=== PATIENT | female | born 1965 | race Asian ===

== ENCOUNTER 2020-02-11 13:55 | Outpatient (CLI) | payer OTHER, SELFPAY ==
--- NOTE | ~2020-02-11 | MR_ITS ---
EXAMINATION: MR knee LT wo con DATE: 02/11/2020 15:13 INDICATION: Acute left knee pain. TECHNIQUE: Magnetic resonance imaging (MRI) of the left knee was performed without intravenous contra st. Sequences included axial PD-weighted FS FSE, coronal PD-weighted FSE and PD-weighted FS FSE, sagi ttal PD-weighted FSE, and sagittal T2-weighted FS FSE. COMPARISON: None. FINDINGS: Medial compartment: Medial meniscus is normal. There is partial-thickness cartilage loss of tibial condyle laterally. Fem oral cartilage is normal. Lateral compartment: There is a complex tear involving body and anterior horn of lateral meniscus. There is a torn bucket handle component superior to the body segment. There is cartilage surface irregularity of femoral con dyle and tibial condyle. Patellofemoral compartment: There is cartilage surface irregularity of patellar medial and lateral facets. There is cartilage jennifer face irregularity of medial trochlea. Ligaments and tendons: The anterior cruciate ligament is normal. There is a complete tear of posterior cruciate ligament. Th ere are changes of prior sprains of medial collateral ligament and fibular collateral ligament charac terized by thickening and increased signal intensity proximally. There is mild patellar tendinopathy. Fluid: There is a moderate-sized knee joint effusion. There is a small Meneses's cyst. IMPRESSION: 1. Mild tricompartmental chondrosis. 2. Complex tear of lateral meniscus. 3. Complete tear of posterior cruciate ligament. 4. Moderate-sized knee joint effusion. 5. Small Meneses's cyst. Reviewed, dictated and finalized at location A.
== END 2020-02-11 13:56 | disposition home or self-care (01) ==
PROVIDERS: PCP Internal Medicine
DX: M25.562 Pain in left knee (principal); M22.2X2 Patellofemoral disorders, left knee; S83.272A Complex tear of lateral meniscus, current injury, left knee, initial encounter; S83.522A Sprain of posterior cruciate ligament of left knee, initial encounter; M25.462 Effusion, left knee; M71.22 Synovial cyst of popliteal space [Baker], left knee
CPT/HCPCS: 73721

== ENCOUNTER 2020-09-15 15:14 | Outpatient (CLI) | payer OTHER, SELFPAY ==
[2020-09-15 15:41] LABS: Basophils Percent Auto 0.7 % (0.2-1.2); Eosinophils Percent Auto 0.9 % (0-4.4); Hematocrit 39.2 % (37.0-47.0); Hemoglobin 13.3 g/dL (12.0-15.0); Lymphocytes Absolute Auto 1.21 K/mm3 (0.9-3.2); Lymphocytes Percent Auto 28.4 % (18.3-44.2); Mean Corpuscular HGB Conc 33.9 g/dl (32-36); Mean Corpuscular Hemoglobin 31.8 pg (26-34); Mean Corpuscular Volume 93.8 fl (80-100); Mean Platelet Volume 12.1 fl (7.4-10.4); Monocytes Absolute Auto 0.4 K/mm3 (0.1-0.6); Monocytes Percent Auto 10.1 % (2.6-8.5); Neutrophils Absolute Auto 2.6 K/mm3 (1.3-6.7); Neutrophils Percent Auto 59.9 % (45.5-73.1); Platelet Count Result 199 k/mm3 (150-375); Red Blood Count 4.18 M/mm3 (4.2-5.4); Red Cell Distribution Width 13.1 % (11.5-14.5); White Blood Count 4.3 K/mm3 (4.5-10.0)
[2020-09-15 15:45] LABS: Add Urine Microscopic? YES; Appearance Urine Clear (Clear); Bilirubin Urine Negative (Negative); Blood Urine 1+ (Negative); Color Urine Colorless (Yellow); Glucose Urine UA Negative (Negative); Ketones Urine Negative (Negative); Leukocyte Esterase Ur Negative LEU/UL (NEGATIVE); Nitrate Urine Negative (Negative); Protein Urine Negative (Negative); RBC Urine 0-2 /hpf (0-2); Specific Grav Ur 1.006 (1.001-1.035); Squamous Epithelial Cell Urine Rare /hpf (Few); Urobilinogen Urine Negative mg/dL (<2.0); WBC Urine 0-3 /hpf (0-3)
[2020-09-15 15:56] LABS: Alanine Aminotransferase 15 U/L (4-35); Albumin Level 3.9 g/dL (3.5-5.1); Alkaline Phosphatase 56 U/L (38-126); Anion Gap 6 mmol/L (8-16); Aspartate Amino Transferase 25 U/L (14-36); Bilirubin,Total 0.4 mg/dL (0.2-1.3); Blood Urea Nitrogen 15 mg/dL (7-17); Calcium 8.8 mg/dL (8.4-10.2); Carbon Dioxide 26 mmol/L (22-30); Chloride 106 mmol/L (98-107); Cholesterol 200 mg/dL (0-200); Estimated Glomerular Filt Rate > 60; Glucose 100 mg/dL (65-105); HDL Direct 102 mg/dL; Potassium 4.3 mmol/L (3.4-5.0); Sodium 138 mmol/L (137-145); Triglycerides 121 mg/dL (<150)
[2020-09-15 16:07] LABS: LDL Cholesterol Direct 77 mg/dL
[2020-09-15 16:48] LABS: Vitamin D 25 Hydroxy 52.1 ng/mL
== END 2020-09-15 15:15 | disposition home or self-care (01) ==
PROVIDERS: PCP Internal Medicine; Visit Provider Internal Medicine
DX: E55.9 Vitamin D deficiency, unspecified (principal); F32.1 Major depressive disorder, single episode, moderate; H35.30 Unspecified macular degeneration; R31.9 Hematuria, unspecified; Z79.899 Other long term (current) drug therapy; E78.2 Mixed hyperlipidemia
CPT/HCPCS: 36415; 80053; 80061; 81001; 82306; 84443; 85025

== ENCOUNTER 2020-09-22 09:30 | Outpatient (CLI) | payer OTHER, SELFPAY ==
[2020-09-22 11:27] LABS: Folic Acid > 20.0 ng/mL (2.76->20)
== END 2020-09-22 09:31 | disposition home or self-care (01) ==
PROVIDERS: PCP Internal Medicine; Visit Provider Internal Medicine
DX: G62.9 Polyneuropathy, unspecified (principal)
CPT/HCPCS: 36415; 82607; 82746

== ENCOUNTER 2020-12-25 09:43 | Outpatient (CLI) | payer OTHER, SELFPAY ==
[2020-12-25 09:59] LABS: Basophils Percent Auto 0.6 % (0.2-1.2); Eosinophils Absolute Auto 0.1 K/mm3 (0-0.3); Eosinophils Percent Auto 1.9 % (0-4.4); Hematocrit 44.9 % (37.0-47.0); Hemoglobin 15.1 g/dL (12.0-15.0); Immature Granulocyte Absolute 0.01 K/mm3 (0.00-0.031); Immature Granulocyte Percent A 0.2 % (0-0.5); Lymphocytes Absolute Auto 1.84 K/mm3 (0.9-3.2); Lymphocytes Percent Auto 34.1 % (18.3-44.2); Mean Corpuscular HGB Conc 33.6 g/dl (32-36); Mean Corpuscular Hemoglobin 31.9 pg (26-34); Mean Corpuscular Volume 94.9 fl (80-100); Mean Platelet Volume 11.7 fl (7.4-10.4); Monocytes Absolute Auto 0.6 K/mm3 (0.1-0.6); Monocytes Percent Auto 11.5 % (2.6-8.5); Neutrophils Absolute Auto 2.8 K/mm3 (1.3-6.7); Neutrophils Percent Auto 51.7 % (45.5-73.1); Platelet Count Result 189 k/mm3 (150-375); Red Blood Count 4.73 M/mm3 (4.2-5.4); Red Cell Distribution Width 11.9 % (11.5-14.5); White Blood Count 5.4 K/mm3 (4.5-10.0)
[2020-12-25 10:55] LABS: Iron 144 ug/dL (37-170)
[2020-12-25 11:18] LABS: Percent Iron Saturation 50 % (20-50)
== END 2020-12-25 09:44 | disposition home or self-care (01) ==
PROVIDERS: PCP Internal Medicine; Visit Provider Internal Medicine
DX: G62.9 Polyneuropathy, unspecified (principal); G25.81 Restless legs syndrome
CPT/HCPCS: 36415; 82728; 83540; 83550; 83735; 85025

== ENCOUNTER 2021-03-30 09:44 | Outpatient (CLI) | payer OTHER, SELFPAY ==
--- NOTE | ~2021-03-30 | XR_ITS ---
XR hip BI 2V w AP pelvis DATE: 03/30/2021 10:16 INDICATION: Pelvic and hip pain TECHNIQUE: AP pelvis. AP and lateral views of each hip. COMPARISON: None FINDINGS: No pelvic fracture or bone destruction. The pubic symphysis and sacroiliac joints are intac t. Hip joint spaces are symmetric and well preserved. No fracture or dislocation, avascular necrosis or bone destruction of either hip. IMPRESSION: No significant abnormality Reviewed, dictated and finalized at location B. IMPRESSION: No significant abnormality
--- NOTE | ~2021-03-30 | XR_ITS ---
XR_CERV2-3V_CR DATE: 03/30/2021 10:16 INDICATION: Cervical radiculopathy TECHNIQUE: Open-mouth, AP, lateral views COMPARISON: None FINDINGS: There is reversal of cervical curvature. C1 and C2 are normally aligned and the odontoid process is intact. No fracture or dislocation or lock ed facet or prevertebral soft tissue swelling. Mild degenerative disc disease at C3-4 and C4-5 and moderately severe degenerative disc disease at C5 -6 and C6-7. There is uncovertebral joint spurring particularly on the right at C4-5 and bilaterally at C5-6 and C 6-7. IMPRESSION: Reversal of cervical curvature Multilevel degenerative disc disease and degenerative change at the uncovertebral joints at the mid a nd lower cervical spine Reviewed, dictated and finalized at Location A. Reviewed, dictated and finalized at location B. IMPRESSION: Reversal of cervical curvature Multilevel degenerative disc disease and degenerative change at the uncovertebr al joints at the mid and lower cervical spine
== END 2021-03-30 09:45 | disposition home or self-care (01) ==
LOC: ANHIMG 09:50
PROVIDERS: PCP Internal Medicine; Visit Provider Internal Medicine
DX: M54.12 Radiculopathy, cervical region (principal); M50.30 Other cervical disc degeneration, unspecified cervical region
CPT/HCPCS: 72040; 73521

== ENCOUNTER 2021-07-02 14:31 | Outpatient (CLI) | payer OTHER, SELFPAY ==
--- NOTE | ~2021-07-02 | XR_ITS ---
XR lumbar spine 2-3V DATE: 07/02/2021 15:04 INDICATION: Low back pain TECHNIQUE: AP, lateral, coned lateral lumbosacral views COMPARISON: None FINDINGS: There is mild levoscoliosis of the thoracolumbar spine. There is mild degenerative disease at L4-5 and moderate degenerative disc disease at L1-2, L2-3 and L 3-4. L5-S1 interspaces are well preserved. There is degenerative change at the apophyseal joints, especially at L4-5 and L5-S1, with associated grade 1 anterolisthesis at L4-5. The lower thoracic and lumbar pedicles are intact. The sacroiliac joints are unremarkable. IMPRESSION: Mild levoscoliosis of thoracolumbar spine Moderate degenerative disc disease at L1-2 through L3-4 Mild degenerative disc disease at L4-5 Grade 1 anterolisthesis at L4-5 due to degenerative change at the apophyseal joints Reviewed, dictated and finalized at location A. IMPRESSION: Mild levoscoliosis of thoracolumbar spine Moderate degenerative disc disease at L1-2 through L3-4 Mild degenerative disc disease at L4-5 Grade 1 anterolisthesis at L4-5 due to degenerative change at the apophyseal jerod ints
== END 2021-07-02 14:32 | disposition home or self-care (01) ==
LOC: ANHIMG 14:44
PROVIDERS: PCP Internal Medicine; Visit Provider Internal Medicine
DX: M51.36 Other intervertebral disc degeneration, lumbar region (principal)
CPT/HCPCS: 72100

== ENCOUNTER 2021-07-09 09:54 | Outpatient (CLI) | payer OTHER, SELFPAY ==
--- NOTE | ~2021-07-09 | MR_ITS ---
EXAMINATION: MR cervical spine wo/w con DATE: 07/09/2021 11:42 INDICATION: Cervical radiculopathy. TECHNIQUE: Magnetic resonance imaging (MRI) of the cervical spine was performed without and with 9 mL MultiHance intravenous contrast. Sequences included sagittal and axial T2-weighted FSE, sagittal T2- weighted FS FSE, and sagittal and axial T1-weighted FSE. Postcontrast sequences included sagittal and axial T1-weighted FS FSE. COMPARISON: Cervical spine radiographs 03/30/2021 FINDINGS: There is 5 degrees dextrocurvature of cervical spine. There is kyphosis of cervical spine. There is 2 mm retrolisthesis of C6 on C7. Vertebral body heights are normal. There is moderately decr eased disc height at C5-C6 and C6-C7. The spinal cord signal intensity is normal. The following disc levels are specifically discussed: C2-C3: The disc does not extend beyond the endplate margin. There is no uncovertebral joint osteoarth ritis. There is moderate bilateral facet joint osteoarthritis. There is no neural foraminal stenosis. There is no central canal stenosis. C3-C4: The disc is bulging. There is mild bilateral uncovertebral joint osteoarthritis. There is mild right and moderate left facet joint osteoarthritis. There is mild bilateral neural foraminal stenosi s. There is mild central canal stenosis. C4-C5: The disc is bulging. There is moderate right uncovertebral joint osteoarthritis. There is mild bilateral facet joint osteoarthritis. There is mild right neural foraminal stenosis. There is mild c entral canal stenosis. C5-C6: The disc is bulging. There is severe bilateral uncovertebral joint osteoarthritis. There is no facet joint osteoarthritis. There is mild bilateral neural foraminal stenosis. There is mild central canal stenosis. C6-C7: The disc is bulging. There is severe bilateral uncovertebral joint osteoarthritis. There is mi ld bilateral facet joint osteoarthritis. There is moderate right and mild left neural foraminal steno sis. There is mild central canal stenosis. C7-T1: The disc does not extend beyond the endplate margin. There is no uncovertebral joint osteoarth ritis. There is mild right and severe left facet joint osteoarthritis. There is mild left neural fora anna marie stenosis. There is no central canal stenosis. IMPRESSION: 1. Moderate cervical spondylosis. Reviewed, dictated and finalized at location A.
--- NOTE | ~2021-07-09 | MR_ITS ---
EXAMINATION: MR lumbar spine wo/w con DATE: 07/09/2021 11:43 INDICATION: Lumbar radiculopathy TECHNIQUE: Magnetic resonance imaging (MRI) of the lumbar spine was performed without and with 9 mL M ultihance intravenous contrast. Sequences included sagittal T2-weighted FSE, sagittal T2-weighted FS FSE, and sagittal and axial T1-weighted FSE. Postcontrast sequences included axial T2-weighted FSE, s agittal T1-weighted FSE, and axial and sagittal T1-weighted FS FSE. COMPARISON: Lumbar spine radiographs dated FINDINGS: And agree thoracolumbar levoscoliosis. Ring of the normal lumbar lordosis. 2 mm anterolisthesis L4 on L5 and 2 mm retrolisthesis L5 on S1. Vertebral body heights are normal. Mild fibrovascular degenerat adria endplate changes at L5-S1 and anteriorly along the inferior endplates of T12, L1 and L2. Mild rig ht-sided disc height loss at L2-L3 and more diffuse mild disc height loss at L3-L4, L4-L5 and L5-S1. Annular fissure at L5-S1. The conus medullaris terminates at L1. There is normal signal in the caudal spinal cord. Paravertebral soft tissues are unremarkable. No abnormally enhancing lesions identified . The following disc levels are specifically discussed: T10-T11: Imaged only on sagittal images. The disc does not extend beyond the endplate margin. Moderat e to severe bilateral facet osteoarthritis with anterior hypertrophic osteophytes resulting in at nichole st mild central canal stenosis at this level as well as moderate left and mild right neural foraminal stenosis. T11-T12: There is only on sagittal images. The disc does not extend beyond the endplate margins. Mild to moderate bilateral facet osteoarthritis. No neural foraminal stenosis. No central canal stenosis. T12-L1: The disc does not extend beyond the endplate margin. There is mild bilateral facet joint oste oarthritis. There is no neural foraminal stenosis. There is no central canal stenosis. L1-L2: Disc is minimally bulging. There is moderate bilateral facet joint osteoarthritis. There is no neural foraminal stenosis. There is no central canal stenosis. L2-L3: Disc is mildly bulging. There is mild left and moderate right facet joint osteoarthritis. Ther e is minimal left and mild right neural foraminal stenosis. There is minimal central canal stenosis. L3-L4: Moderate diffuse disc bulge. There is mild left and moderate right facet joint osteoarthritis. There is mild bilateral neural foraminal stenosis. There is mild central canal stenosis. L4-L5: Disc is bulging. There is hypertrophy of the ligamentum flavum. There is severe bilateral fac et joint osteoarthritis. There is mild to moderate bilateral neural foraminal stenosis. There is mild central canal stenosis along with mild narrowing of the left and right lateral recesses. L5-S1: Disc is bulging with annular fissure. There is moderate left and severe right facet joint oste oarthritis. There is moderate bilateral neural foraminal stenosis. There is mild central canal stenos is along with mild narrowing of the left and right lateral recesses. IMPRESSION: 1. Mild to moderate lumbar and lower thoracic spondylosis. Reviewed, dictated and finalized at location A.
[2021-07-09 10:21] LABS: Estimated Glomerular Filt Rate > 60
== END 2021-07-09 09:55 | disposition home or self-care (01) ==
LOC: ANHIMG 09:58
PROVIDERS: PCP Internal Medicine; Visit Provider Internal Medicine
DX: M47.22 Other spondylosis with radiculopathy, cervical region (principal); M47.26 Other spondylosis with radiculopathy, lumbar region; M47.894 Other spondylosis, thoracic region
CPT/HCPCS: 72156; 72158; A9577

== ENCOUNTER 2021-11-27 11:39 | Outpatient (CLI) | payer OTHER, SELFPAY ==
[2021-11-27 12:34] LABS: Basophils Percent Auto 0.6 % (0.2-1.2); Eosinophils Absolute Auto 0.1 K/mm3 (0-0.3); Eosinophils Percent Auto 2.1 % (0-4.4); Hematocrit 41.4 % (37.0-47.0); Hemoglobin 13.7 g/dL (12.0-15.0); Immature Granulocyte Absolute 0.01 K/mm3 (0.00-0.031); Immature Granulocyte Percent A 0.2 % (0-0.5); Lymphocytes Absolute Auto 1.61 K/mm3 (0.9-3.2); Lymphocytes Percent Auto 33.3 % (18.3-44.2); Mean Corpuscular HGB Conc 33.1 g/dl (32-36); Mean Corpuscular Hemoglobin 30.8 pg (26-34); Mean Platelet Volume 12.7 fl (7.4-10.4); Monocytes Absolute Auto 0.5 K/mm3 (0.1-0.6); Monocytes Percent Auto 10.4 % (2.6-8.5); Neutrophils Absolute Auto 2.6 K/mm3 (1.3-6.7); Neutrophils Percent Auto 53.4 % (45.5-73.1); Platelet Count Result 173 k/mm3 (150-375); Red Blood Count 4.45 M/mm3 (4.2-5.4); Red Cell Distribution Width 12.5 % (11.5-14.5); White Blood Count 4.8 K/mm3 (4.5-10.0)
[2021-11-27 12:46] LABS: Alanine Aminotransferase 24 U/L (4-35); Albumin Level 4.3 g/dL (3.5-5.1); Alkaline Phosphatase 86 U/L (38-126); Anion Gap 9 mmol/L (8-16); Aspartate Amino Transferase 31 U/L (14-36); Bilirubin,Total 0.2 mg/dL (0.2-1.3); Blood Urea Nitrogen 22 mg/dL (7-17); Calcium 9.4 mg/dL (8.4-10.2); Carbon Dioxide 31 mmol/L (22-30); Chloride 99 mmol/L (98-107); Cholesterol 222 mg/dL (0-200); Estimated Glomerular Filt Rate > 60; Glucose 105 mg/dL (65-110); HDL Direct 97 mg/dL; Potassium 4.1 mmol/L (3.4-5.0); Sodium 139 mmol/L (137-145); Triglycerides 92 mg/dL (<150)
[2021-11-27 12:57] LABS: LDL Cholesterol Direct 87 mg/dL
[2021-11-27 13:52] LABS: Appearance Urine Clear (Clear); Bilirubin Urine Negative (Negative); Blood Urine Trace-lysed (Negative); Glucose Urine UA Negative (Negative); Ketones Urine Negative (Negative); Leukocyte Esterase Ur Negative LEU/UL (NEGATIVE); Nitrate Urine Negative (Negative); Protein Urine Negative (Negative); Specific Grav Ur 1.015 (1.001-1.035); Urobilinogen Urine 0.2 mg/dL (<2.0); pH Urine 6.5 (5.0-9.0)
[2021-11-27 13:58] LABS: Add Urine Microscopic? YES; Color Urine Light Yellow (Yellow)
[2021-11-27 13:59] LABS: RBC Urine 0-2 /hpf (0-2); Squamous Epithelial Cell Urine Rare /hpf (Few); WBC Urine 0-3 /hpf (0-3)
[2021-11-27 14:00] LABS: Bacteria Urine Trace /hpf; Mucus Urine Rare /lpf
[2021-11-27 18:33] LABS: Iron 103 ug/dL (37-170)
[2021-11-27 18:42] LABS: Percent Iron Saturation 36 % (20-50)
[2021-11-27 18:49] LABS: Vitamin D 25 Hydroxy 79.9 ng/mL
== END 2021-11-27 11:40 | disposition home or self-care (01) ==
LOC: ANHLAB 11:41
PROVIDERS: PCP Internal Medicine; Visit Provider Internal Medicine
DX: R53.83 Other fatigue (principal); G25.81 Restless legs syndrome; G62.9 Polyneuropathy, unspecified; E55.9 Vitamin D deficiency, unspecified; F32.1 Major depressive disorder, single episode, moderate; E78.2 Mixed hyperlipidemia
CPT/HCPCS: 36415; 80053; 80061; 81001; 82306; 82728; 83540; 83550; 84443; 85025

== ENCOUNTER 2021-12-31 07:41 | Outpatient (CLI) | payer OTHER, SELFPAY ==
--- NOTE | 2022-01-01 16:11 | WPDHOMESLEEP ---
Sleep Study - Home Unattended Date of Study: 12/31/21 Ordering Provider: Iain Banegas MD Interpreting Provider: Jennifer Guadalupe, DO Home Sleep Study Type: Apnea Link Air Height: 1.55 m Weight: 48.081 kg Body Mass Index: 20.0 Neck Circumference (inches): 12 [place]: 10 Reason for Sleep Study Unrefreshing sleep, daytime hypersomnia and snoring Sleep History The patient is a 56 old female with overactive bladder, restless leg syndrome menopausal syndrome and retinal degeneration that had a sleep study ordered by her primary care doctor. The patient occasionally awakens from sleep. She denies awakening at night with heartburn, belching or cough. She frequently snores but is rarely loud enough of others complain. She frequently has trouble sleeping when she has a cold. She rarely wakes up gasping for air throughout the night. She rarely has breathing problems at night. She occasionally sweats excessively at night. She occasionally notices heart palpitations or irregular heartbeats during the night. She rarely falls asleep during the day and rarely falls asleep while driving. She frequently experiences loss of muscle tone when extremely emotional. She occasionally has trouble in school or work due to sleepiness. She denies sleep paralysis. She frequently experiences vivid dreamlike scenes upon awakening or falling asleep. She occasionally has nightmares. She frequently has thoughts racing through her mind. She frequently feels sad or depressed. She frequently has anxiety. She constantly notices parts of her body jerk. He constantly kicks during the night. She frequently has crawling and aching feelings in her legs. She rarely has leg pain during the night. She occasionally grinds her teeth during sleep and occasionally awakens with morning jaw pain. She is constantly bothered by pain during the day he constantly awakened by pain during the night. She constantly wakes up feeling stiff in the morning with sore or achy muscles. She constantly wakes up with pain in the neck, spine or other joints. She goes to bed between 4:00 a.m.on both weekdays and weekends. It takes her 1 hour to fall asleep. She wakes up twice per night for unknown reasons. It takes her 5 minutes-2 hours to fall asleep. The patient wakes up at noon on weekdays and between 1-2 pm on the weekends. The patient typically gets 5-10 hours of sleep per night. The patient will stay in bed 30 minutes after awakening. The patient currently lives with her 25 year old. the patient denies caffeine consumption within 2 hours of bedtime. She does not engage in physical exercise before bedtime. She will read watch television before falling asleep. She does not take naps in the afternoon or evening. She denies tobacco, alcohol recreational drugs. [facility] Social History Social History (Updated 11/27/21 @ 10:47 by Juana Braga) Second hand tobacco smoke exposure: No Alcohol intake: never Medications Home Medications Medication Instructions Recorded Confirmed Type multivit,Ca,iod-baum-BC-guarana-caff tablet PO DAILY tablet 09/01/19 11/27/21 History 18 mg iron-400 mcg-180 mg tablet oxybutynin chloride 5 mg tablet 5 mg PO TID 12/25/20 11/27/21 History omeprazole 40 mg capsule,delayed 40 mg PO DAILY #90 cap 07/02/21 11/27/21 Rx release ropinirole 0.25 mg tablet 0.25 mg PO .qhs #90 tablet 12/14/21 Rx Sleep Procedure This test was performed using 4 channel monitoring including respiratory effort channel, snoring channel, heart rate channel, and oxygen saturation channel. This study was scored using [facility] guidelines. Sleep Architecture The patient had a total recording time of 10 hours 37 minutes and a total monitoring time of 8 hours 43 minutes. The patient spent 7 hours 26 minutes, 85.3% of total monitoring time in the supine position. Respiratory Analysis The patient had an overall AHI of 0.8 and a central apnea index of 0. The patient had 3 apneas and 4
== END 2022-01-01 15:09 | disposition home or self-care (01) ==
LOC: ANHCSM 07:42
PROVIDERS: PCP Internal Medicine; Visit Provider Internal Medicine
DX: R53.83 Other fatigue (principal); G47.10 Hypersomnia, unspecified; G47.9 Sleep disorder, unspecified
CPT/HCPCS: 95806

== ENCOUNTER 2022-12-09 10:33 | Outpatient (CLI) | payer OTHER, SELFPAY ==
--- NOTE | 2022-12-10 12:50 | WPDPFTINT ---
PFT Procedure Performed PFT Procedure Performed Spirometry with Pre/Post Bronchodilator Plethysmography (Lung Vol) Diffusing Cap (DLCO) Flow Vol Loop PFT Interpretation Lung volumes were measured with the body plethysmography method. Lung volumes are unremarkable. Spirometry showed diminished expiratory flow rates and a normal FEV1 to FVC ratio 70%. Following administration of a bronchodilator there was no significant increase in expiratory flow rates. Lung diffusion capacity is mildly reduced at 61% predicted. The flow volume loop is consistent with suboptimal effort. impression: Suboptimal patient effort. Nonspecific pattern with no response to bronchodilators. Mild reduction in lung diffusion capacity.
== END 2022-12-09 10:34 | disposition home or self-care (01) ==
LOC: ANHPFT 10:34
PROVIDERS: PCP Internal Medicine; Visit Provider Nurse Practitioner
DX: R06.2 Wheezing (principal); R06.02 Shortness of breath
CPT/HCPCS: 94060; 94726; 94729

== ENCOUNTER 2023-06-04 11:48 | Outpatient (CLI) | payer OTHER, SELFPAY ==
[2023-06-04 12:39] LABS: Basophils Percent Auto 0.7 % (0.2-1.2); Eosinophils Absolute Auto 0.1 K/mm3 (0-0.3); Hematocrit 44.6 % (37.0-47.0); Hemoglobin 14.6 g/dL (12.0-15.0); Immature Granulocyte Absolute 0.01 K/mm3 (0.00-0.031); Immature Granulocyte Percent A 0.2 % (0-0.5); Lymphocytes Absolute Auto 1.43 K/mm3 (0.9-3.2); Lymphocytes Percent Auto 35.2 % (18.3-44.2); Mean Corpuscular HGB Conc 32.7 g/dl (32-36); Mean Corpuscular Hemoglobin 31.1 pg (26-34); Mean Corpuscular Volume 95.1 fl (80-100); Mean Platelet Volume 11.7 fl (7.4-10.4); Monocytes Absolute Auto 0.5 K/mm3 (0.1-0.6); Monocytes Percent Auto 12.3 % (2.6-8.5); Neutrophils Percent Auto 49.6 % (45.5-73.1); Platelet Count Result 218 k/mm3 (150-375); Red Blood Count 4.69 M/mm3 (4.2-5.4); Red Cell Distribution Width 13.6 % (11.5-14.5); White Blood Count 4.1 K/mm3 (4.5-10.0)
[2023-06-04 12:58] LABS: Alanine Aminotransferase 28 U/L (6-35); Albumin Level 4.4 g/dL (3.5-5.1); Alkaline Phosphatase 95 U/L (38-126); Anion Gap 10 mmol/L (8-16); Aspartate Amino Transferase 38 U/L (14-36); Bilirubin,Total 0.4 mg/dL (0.2-1.3); Blood Urea Nitrogen 16 mg/dL (7-17); Calcium 9.4 mg/dL (8.4-10.2); Carbon Dioxide 26 mmol/L (22-30); Chloride 103 mmol/L (98-107); Cholesterol 245 mg/dL (0-200); Estimated Glomerular Filt Rate > 60; Glucose 96 mg/dL (65-110); Magnesium 1.9 mg/dL (1.6-2.3); Potassium 4.1 mmol/L (3.4-5.0); Sodium 139 mmol/L (137-145); Triglycerides 135 mg/dL (<150)
[2023-06-04 13:04] LABS: HDL Direct 103 mg/dL; LDL Cholesterol Direct 100 mg/dL
[2023-06-04 13:12] LABS: Iron 55 ug/dL (37-170)
[2023-06-04 13:22] LABS: Percent Iron Saturation 19 % (20-50)
[2023-06-08 14:09] LABS: Red Blood Cell Folate 583 ng/mL RBC (>280)
== END 2023-06-04 11:49 | disposition home or self-care (01) ==
LOC: ANHLAB 11:50
PROVIDERS: PCP Nurse Practitioner Family; Visit Provider Nurse Practitioner Family
DX: D64.9 Anemia, unspecified (principal); E55.9 Vitamin D deficiency, unspecified; F32.9 Major depressive disorder, single episode, unspecified; G25.81 Restless legs syndrome; R53.83 Other fatigue; G62.9 Polyneuropathy, unspecified
CPT/HCPCS: 36415; 80053; 80061; 82607; 82728; 82747; 83540; 83550; 83735; 85025

== ENCOUNTER 2023-08-13 14:43 | Outpatient (CLI) | payer OTHER, SELFPAY ==
--- NOTE | ~2023-08-13 | US_ITS ---
EXAMINATION: US arterial ankle brachial ind DATE: 08/13/2023 15:26 INDICATION: Peripheral vascular disease, unspecified. TECHNIQUE: Segmental pressures and plethysmographic and Doppler waveforms of the brachial and lower e xtremity arteries were obtained. COMPARISON: None. FINDINGS: Right and left brachial artery pressures of 142 mm Hg and 145 mm Hg, respectively, are concordant (no rmal difference <= 30 mmHg). The right ankle-brachial index (KP) is 1.13 (normal >= 0.9-1.0). The right great toe-brachial index (TBI) is 0.70 (normal >= 0.65). Arterial Doppler waveforms are biphasic at the ankle. The left KP is 1.21. The left TBI is 0.64. Arterial Doppler waveforms are biphasic at the ankle. IMPRESSION: 1. Mildly decreased left TBI and normal ABIs, consistent with left-sided arterial occlusive disease. Reviewed, dictated and finalized at location E. IMPRESSION: 1. Mildly decreased left TBI and normal ABIs, consistent with left-sided arteri al occlusive disease.
[2023-08-13 16:15] LABS: Rheumatoid Factor < 12.0 IU/ML (<12)
[2023-08-13 17:05] LABS: Erythrocyte Sedimentation Rate 6 mm/hr (0-20)
== END 2023-08-13 14:44 | disposition home or self-care (01) ==
PROVIDERS: PCP Nurse Practitioner Family; Visit Provider Nurse Practitioner Family
DX: M25.50 Pain in unspecified joint (principal); F32.9 Major depressive disorder, single episode, unspecified; I73.9 Peripheral vascular disease, unspecified
CPT/HCPCS: 36415; 85652; 86038; 86430; 93922

== ENCOUNTER 2023-08-29 08:08 | Outpatient (CLI) | payer OTHER, SELFPAY ==
--- NOTE | ~2023-08-29 | US_ITS ---
US arterial duplex LE LT 08/29/2023 09:43 Indication: Riaz diminished left toe brachial indices Procedure: High-resolution ultrasound arterial Doppler of the left lower extremity. Comparison: 08/13/2023 Findings: There is normal color flow in the left lower extremity arteries with triphasic flow in the left common femoral, profunda femoral, SFA and popliteal arteries. There is biphasic flow in the romeo michelle of the left lower extremity arteries. 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 Impression: 1: Normal flow in the left lower extremity arteries without evidence for occlusion. Reviewed, dictated and finalized at location A. Impression: 1: Normal flow in the left lower extremity arteries without evidence for occlus ion.
== END 2023-08-29 08:09 | disposition home or self-care (01) ==
PROVIDERS: PCP Nurse Practitioner Family; Visit Provider Nurse Practitioner Family
DX: I73.9 Peripheral vascular disease, unspecified (principal)
CPT/HCPCS: 93926

== ENCOUNTER 2023-09-10 09:16 | Outpatient (CLI) | payer OTHER, SELFPAY ==
--- NOTE | 2023-09-10 11:00 | NEURO_ITS ---
Impression: # Complains of tingling and numbness of hands and feet. Not diabetic. # Subtle sensory left Carpal Tunnel Syndrome. # No ulnar neuropathy. # Normal needle/EMG. # Clinical correlation recommended,possibility of higher involvement cannot be ruled out. Nerve Conduction Studies Anti Sensory Summary Table Stim Site NR Peak (ms) P-T Amp (?V) Site1 Site2 Delta-P (ms) Dist (cm) Ranie (m/s) Left Median Anti Sensory (2-3nd Digit) Wrist 3.7 36.7 Wrist 2-3nd Digit 3.7 14.0 38 Wrist 4.0 33.4 Wrist 2-3nd Digit 3.7 14.0 38 Right Median Anti Sensory (2-3nd Digit) Wrist 2.7 70.5 Wrist 2-3nd Digit 2.7 14.0 52 Wrist 2.7 82.4 Wrist 2-3nd Digit 2.7 14.0 52 Left Radial Anti Sensory (Base 1st Digit) Wrist 1.9 74.4 Wrist Base 1st Digit 1.9 0.0 Right Radial Anti Sensory (Base 1st Digit) Wrist 2.2 60.1 Wrist Base 1st Digit 2.2 0.0 Left Sup Fibular Anti Sensory (Ant Lat Mall) 14 cm 2.8 19.6 14 cm Ant Lat Mall 2.8 16.0 57 Right Sup Fibular Anti Sensory (Ant Lat Mall) 14 cm 3.1 18.1 14 cm Ant Lat Mall 3.1 16.0 52 Left Sural Anti Sensory (Lat Mall) Calf 3.3 16.6 Calf Lat Mall 3.3 16.0 48 Right Sural Anti Sensory (Lat Mall) Calf 3.6 10.3 Calf Lat Mall 3.6 16.0 44 Left Ulnar Anti Sensory (5th Digit) Wrist 2.5 45.5 Wrist 5th Digit 2.5 14.0 56 Right Ulnar Anti Sensory (5th Digit) Wrist 2.1 61.0 Wrist 5th Digit 2.1 14.0 67 Motor Summary Table Stim Site NR Onset (ms) O-P Amp (mV) Site1 Site2 Delta-0 (ms) Dist (cm) Arnie (m/s) Left Median Motor (Abd Poll Brev) Wrist 3.5 2.8 Elbow Wrist 4.5 27.0 60 Elbow 8.0 2.4 Right Median Motor (Abd Poll Brev) Wrist 2.9 5.2 Elbow Wrist 4.1 25.0 61 Elbow 7.0 7.1 Left Peroneal Motor (Vastus Med) Ankle 3.9 1.4 Popit Ankle 7.0 38.0 54 Popit 10.9 1.2 Right Peroneal Motor (Vastus Med) Ankle 3.4 4.3 Popit Ankle 7.1 38.0 54 Popit 10.5 3.9 Left Tibial Motor (Abd Zelaya Brev) Ankle 4.0 8.6 Knee Ankle 7.1 38.0 54 Knee 11.1 7.3 Right Tibial Motor (Abd Zelaya Brev) Ankle 4.1 14.7 Knee Ankle 6.8 36.0 53 Knee 10.9 14.0 Left Ulnar Motor (Abd Dig Minimi) Wrist 2.7 8.1 A Elbow Wrist 4.3 27.0 63 A Elbow 7.0 7.3 Right Ulnar Motor (Abd Dig Minimi) Wrist 2.5 5.0 A Elbow Wrist 4.6 27.0 59 A Elbow 7.1 4.3 F Wave Studies NR F-Lat (ms) L-R F-Lat (ms) Left Median (Mrkrs) (Abd Poll Brev) 25.17 0.41 Right Median (Mrkrs) (Abd Poll Brev) 24.77 0.41 Left Peroneal (Mrkrs) (EDB) 47.21 0.96 Right Peroneal (Mrkrs) (EDB) 46.24 0.96 Left Tibial (Mrkrs) (Abd Hallucis) 46.53 0.66 Right Tibial (Mrkrs) (Abd Hallucis) 47.19 0.66 Left Ulnar (Mrkrs) (Abd Dig Min) 24.45 1.02 Right Ulnar (Mrkrs) (Abd Dig Min) 25.47 1.02 EMG Side Muscle Nerve Root Ins Act Fibs Amp Dur Recrt Comment Right 1stDorInt Ulnar C8-T1 Nml Nml Nml Nml Nml Right Ext Indicis Radial (Post Int) C7-8 Nml Nml Nml Nml Nml Right Ext Digitorum Radial (Post Int) C7-8 Nml Nml Nml Nml Nml Right BrachioRad Radial C5-6 Nml Nml Nml Nml Nml Right PronatorTeres Median C6-7 Nml Nml Nml Nml Nml Right Abd Poll Brev Median C8-T1 Nml Nml Nml Nml Nml Right AntTibialis Dp Br Fib
== END 2023-09-10 09:17 | disposition home or self-care (01) ==
LOC: ANHNEURO 09:17
PROVIDERS: PCP Nurse Practitioner Family; Visit Provider Nurse Practitioner Family
DX: G62.9 Polyneuropathy, unspecified (principal); G56.02 Carpal tunnel syndrome, left upper limb
CPT/HCPCS: 95886; 95913

== ENCOUNTER 2024-03-31 14:29 | Outpatient (CLI) | payer OTHER, SELFPAY ==
[2024-03-31 15:20] LABS: Basophils Percent Auto 0.7 % (0.2-1.2); Eosinophils Absolute Auto 0.2 K/mm3 (0-0.3); Eosinophils Percent Auto 2.7 % (0-4.4); Hematocrit 44.6 % (37.0-47.0); Hemoglobin 14.7 g/dL (12.0-15.0); Immature Granulocyte Absolute 0.02 K/mm3 (0.00-0.031); Immature Granulocyte Percent A 0.3 % (0-0.5); Lymphocytes Absolute Auto 1.61 K/mm3 (0.9-3.2); Lymphocytes Percent Auto 27.1 % (18.3-44.2); Mean Corpuscular Hemoglobin 30.8 pg (26-34); Mean Corpuscular Volume 93.3 fl (80-100); Mean Platelet Volume 12.1 fl (7.4-10.4); Monocytes Absolute Auto 0.5 K/mm3 (0.1-0.6); Monocytes Percent Auto 8.4 % (2.6-8.5); Neutrophils Absolute Auto 3.6 K/mm3 (1.3-6.7); Neutrophils Percent Auto 60.8 % (45.5-73.1); Platelet Count Result 205 k/mm3 (150-375); Red Blood Count 4.78 M/mm3 (4.2-5.4); Red Cell Distribution Width 13.3 % (11.5-14.5)
[2024-03-31 15:47] LABS: LDL Cholesterol Direct 98 mg/dL
[2024-03-31 15:55] LABS: Alanine Aminotransferase 28 U/L (6-35); Albumin Level 4.9 g/dL (3.5-5.1); Alkaline Phosphatase 124 U/L (38-126); Anion Gap 6 mmol/L (4-12); Aspartate Amino Transferase 42 U/L (14-36); Bilirubin,Total 0.7 mg/dL (0.2-1.3); Blood Urea Nitrogen 19 mg/dL (7-17); Calcium 9.4 mg/dL (8.4-10.2); Carbon Dioxide 30 mmol/L (22-30); Chloride 102 mmol/L (98-107); Cholesterol 243 mg/dL (0-200); Estimated Glomerular Filt Rate > 60; Glucose 96 mg/dL (65-110); Magnesium 2.2 mg/dL (1.6-2.3); Potassium 4.5 mmol/L (3.4-5.0); Sodium 138 mmol/L (137-145); Triglycerides 92 mg/dL (<150)
[2024-03-31 15:57] LABS: HDL Direct 124 mg/dL
[2024-03-31 16:01] LABS: Iron 151 ug/dL (37-170)
[2024-03-31 16:10] LABS: Percent Iron Saturation 60 % (20-50)
== END 2024-03-31 14:30 | disposition home or self-care (01) ==
LOC: ANHLAB 14:31
PROVIDERS: PCP Nurse Practitioner Family; Visit Provider Nurse Practitioner Family
DX: E61.1 Iron deficiency (principal); F32.9 Major depressive disorder, single episode, unspecified; G25.81 Restless legs syndrome; G62.9 Polyneuropathy, unspecified; Z00.00 Encounter for general adult medical examination without abnormal findings
CPT/HCPCS: 36415; 80053; 80061; 83540; 83550; 83735; 85025

== ENCOUNTER 2024-12-22 16:02 | Outpatient (CLI) | payer OTHER, SELFPAY ==
--- NOTE | ~2024-12-22 | XR_ITS ---
EXAMINATION: XR shoulder RT min 2V DATE: 12/22/2024 16:25 INDICATION: Right shoulder pain TECHNIQUE: AP internally and externally rotated, AP oblique externally rotated and transscapular Y vi ews of the right shoulder were obtained. COMPARISON: None FINDINGS: Normal alignment at the right shoulder. No fracture. Glenohumeral joint is normal. Moderate acromioc lavicular osteoarthritis. Moderate spondylosis with moderate uncovertebral osteoarthritis in the mid to lower cervical spine. Mild thoracic dextroscoliosis. Soft tissues are unremarkable. The visualized portions of the lungs are clear. Heart size is normal. IMPRESSION: 1. Moderate right acromioclavicular osteoarthritis. 2. Moderate cervical spondylosis. Reviewed, dictated and finalized at location A. R PLANT PUMP OPERATOR SUPERVISOR
--- OUTSIDE RECORDS SUMMARY | 2024-12-22 16:09 | XMS_ITS | Data Portability ---
Author Organization [place] [facility], Main Office Address [address] [place] [address] Care Team Providers Care Change Management Director Name Role Phone BARTOLO MALONE Primary Care Provider BARTOLO MALONE Referring Provider [phone] Assessment Encounter Date Assessment Date Assessment LastModified by Organization Details LastModified Time 04/22/2023 04/22/2023 Patient returns knee pain right. The pain for the most part is resolved with conservative treatment. She is pleased and can return to normal activity as she wishes. If it gets worse or changes I will see her back I told her she can repeat the gel shots every 6 months if they help and she can not have cortisone however she needs it. Overall she has progressed well from her degenerative change and conservative treatment. [email or web address] Not available 04/22/2023 15:29:31 07/24/2023 07/24/2023 Patient has lateral meniscal pathology in mild to moderate primary osteoarthritis as described right knee. She has declined surgical intervention previously and discussed treatment options in detail Dr. Lopez she would like to proceed with Euflexxa therefore under sterile conditions I injected the patient's right knee joint in the office with Euflexxa injection number 1. I will see her back next week for the 2nd injection she voiced understanding agrees above plan she will call for any further problems difficulties or questions. Not available 07/24/2023 14:56:48 07/31/2023 07/31/2023 The patient has tricompartmental mild to moderate primary osteoarthritis a small tear of the body and anterior horn lateral meniscus. She has discussed this in detail Dr. Lopez she wanted proceed with gel shots. Therefore under sterile conditions I injected the patient's right knee joint in the office with Euflexxa injection 2. I will see her back next week for the 3rd injection right knee she voiced understanding agrees above plan she will call for any further problems difficulties or questions. Not available 07/31/2023 14:58:06 08/07/2023 08/07/2023 The patient has nwpl-eo-ahgewjcc primary osteoarthritis tricompartmental nature more in the patellofemoral articulation also a small tear of the body and anterior horn lateral meniscus after she discussed treatment options in detail Dr. Lopez she proceeded with gel shots. Under sterile conditions I injected the patient's right knee joint in the office with Euflexxa injection number 3. I have advised her to give it a month or so see how things go hopefully this will settle down with time. Talked about proper exercise avoiding deep squats or stair stepping type exercise she likes to work out we talked about things to avoid and working on quad strengthening. She voiced understanding agrees above plan she will call for any further problems difficulties or questions. Not available 08/07/2023 15:03:06 03/22/2024 03/22/2024 This note is dictated and transcribed by [employer]. Surface Lay Out Technician variances may occur. Despite proofreading, typographical errors may occur. Occasional wrong-word or 'rviam-v-upkj' substitutions may have occurred due to the inherent limitations of voice recording. Read the chart carefully and recognize, using context, where substitutions have occurred. [email or web address] Not available 03/22/2024 17:08:00 Plan of Treatment Reminders Order Date Submit Date Provider Last Modified By Organization Details Last Modified Time Details Appointments None recorded. Lab None recorded. Referral None recorded. Procedures knee aspiration /injection (PROC) 2022 023 [email or web address] In-Office Order, Internal Use Only DO Not Attach Compendium DO Not Attach Compendium, Do Not Delete/merge, [id number] 14:45:24 knee aspiration /injection (PROC) 2022 023 [email or web address] In-Office Order, Internal Use Only DO Not Attach Compendium DO Not Attach Compendium, Do Not Delete/merge, [id number] 3 14:42:57 knee aspiration /injection (PROC) 2022 023 [email or web address] In-Office Order, Internal Use Only DO Not Attach Compendium DO Not Attach Compendium, Do Not Delete/merge, [id number] 14:47:47 Surgeries None recorded. Imaging XR, foot, 3 or more view [email or web address] [facility] [address] [facility] [place], [address] [facility] [address], [place], [address], 4 10:02:23 XR, foot, 3 or more view [email or web address] [facility] [place], [address], [place], [address], 4 09:34:33 Medication Orders Euflexxa 10 mg/mL (mw 2.4-3.6 million) intra-faye cular syringe 2022 023 [email or web address] [id number], [address], [place], [place], [id number], 4 16:12:50 Euflexxa 10 mg/mL (mw 2.4-3.6 million) intra-faye cular syringe 2022 023 [email or web address] [id number], [address], [place], [place], [id number], 4 16:12:50 Euflexxa 10 mg/mL (mw 2.4-3.6 million) intra-faye cular syringe 2022 023 [email or web address] [id number], [address], [place], [place], [phone], 4 16:12:50 Patient TargetsNo targets recorded. Patient Instructions Encounter Date Encounter Id Patient Instructions Last Modified By Organization Details Last Modified Time 04/22/2023 [id number] viscosupplementa tion treatment* [email or web address] Not available 04/28/2023 09:06:28 03/22/2024 [id number] bunion handout [email or web address] Not available 03/23/2024 09:34:31 bunion removal: what to expect at home doyle Not available 03/23/2024 09:34:30 bunion removal: before your surgery doyle Not available 03/23/2024 09:34:30 Reason for Referral None Reported. Results Created Date Observation Date Name Description Value Unit Range Abnormal Flag Note LastModifiedBy Organization Detail LastModifiedTime 03/23/20 24 XR, foot, 3 or more view No observ ation record ed. [email or web address] [facility] [place] [address], [place], [address], 03/23/2024 09:31:54 03/23/20 24 XR, foot, 3 or more view No observ ation record ed. [email or web address] [facility] [place] [address], [place], [address], 03/23/2024 09:34:32 Result Notes None recorded. Problems Name Problem SNOMED Code Status Onset Date Resolution Date Notes Provider Name and Address Organization Details Recorded Time Derangemen t of right knee 8860146959385 9109 Active 2022 Not Available [facility] 3 01:33:45 Plantar fasciitis of right foot 5632487629358 9101 Active 2021 Not Available [facility] 3 01:33:45 Chondromal acia of right patella 4337754219386 9108 Active 2022 Not Available [facility] 3 01:33:45 Tear of lateral meniscus of knee 581070360 Active 2022 Not Available [facility] 3 01:33:45 Osteoarthr itis of right knee joint 9715032430111 00 Active 2021 Not Available [facility] 3 01:33:45 Osteoarthr itis 190963534 Active 2022 Not Available [facility] 3 01:33:45 Contact dermatitis 67545545 Active 2021 Not Available [facility] 3 01:33:45 Eczema 95722563 Active 2021 Not Available [facility] 3 01:33:45 Foot pain 11050616 Active 2021 Not Available [facility] 3 01:33:45 Radial tear of lateral meniscus 937798761 Active 2022 GERARDO Haque, [facility] 3 15:46:01 Bunion 764790532 Active 2023 Vincent Uriarte DPM [address], [address], [place], [address] , [facility] 4 09:31:35 Tailor's bunion of right foot 4452086825263 109 Active 2023 Vincent Uriarte DPM [address], [address], [place], [address] , [facility] 4 09:31:40 Bunion 100548762 Active 2023 Vincent Uriarte DPM [address], [address], [place], [address] , [facility] 4 09:31:45 Pain in both feet 1150441193718 9102 Active 2023 Vincent Uriarte DPM [address], [address], [place], [address] , [facility] 4 09:31:58 Problem Notes None recorded. Procedures Surgical History Date Name Laterality Status Provider Name and Address Organization Details Recorded Time 3 Ortho - Cortisone Injection completed Vladislav Lopez MD [address], [address], [place], [address], [facility] 02/25/2023 15:33:08 Imaging Results Imaging Date Name Status LastModified by Organiz ation Details LastModified Time 03/23/2024 XR, foot, 3 or more view completed [email or web address] [facility] [place] [address], [place], [address], 03/23/2024 09:31:54 03/23/2024 XR, foot, 3 or more view completed [email or web address] [facility] [place] [address], [place], [address], 03/23/2024 09:34:32 Procedure Notes None recorded. Medical Equipment None Reported. Allergies Allergen ID Allergen Name Allergen Category Reaction Reaction Severity Criticality Documentation Date Start Date Code Code System Note Provider Name and Address Organization Details Recorded Time 62964 latex environme nt,medica tion Not available Not available Not available 01/09/2023 77009 91 RxNorm Not Available [facility] 3 01:34:44 92243 aspirin medicatio n Not available Not available Not available 01/09/2023 1191 RxNorm Not Available [facility] 3 01:34:44 Medications Name Sig Start Date Stop Date Status Note LastModified by Organization Details LastModified Time celecoxib 200 mg capsule TAKE 1 CAPSULE BY MOUTH EVERY DAY 03/22 completed Not Available Not Available Not Available prednisone 10 mg tablet TAKE 1 TABLET BY MOUTH THREE TIMES DAILY X 3 DAYS. 1 TABLET TWICE DAILY X 2 DAYS. 1 TABLET ONCE DAILY X 1 DAY 03/22 completed Not Available Not Available Not Available alendronate 70 mg tablet active Not Available Not Available Not Available sulfamethox azole 800 mg-trimetho prim 160 mg tablet TAKE 1 TABLET BY MOUTH TWICE DAILY 03/22 completed Not Available Not Available Not Available triamcinolo ne acetonide 0.1 % topical cream APPLY TOPICALLY TO RIGHT FOOT DAILY 03/22 completed Not Available Not Available Not Available prednisone 10 mg tablets in a dose pack Take 1 tab by mouth, 3 times a day for 3 daysTake 1 tab by mouth 2 times a day for 2 daysTake 1 tab by mouth once a day for 1 day 03/22 completed Not Available Not Available Not Available ropinirole 0.25 mg tablet TAKE 1 TABLET BY MOUTH EVERY NIGHT AT BEDTIME active Not Available Not Available No t Available Kenalog 10 mg/mL suspension for injection in office [address] [facility]: 0003- 0494- 20 Not Available Not Available Not Available omeprazole 20 mg capsule,del ayed release TAKE 2 CAPSULES BY MOUTH DAILY. active Not Available Not Available No t Available diclofenac sodium 75 mg tablet,zeny yed release Take 1 tablet twice a day by oral route. 03/22 completed Not Available Not Available Not Available gabapentin 100 mg capsule TAKE 1 CAPSULE BY MOUTH EVERY DAY AT BEDTIME 03/22 completed Not Available Not Available Not Available duloxetine 20 mg capsule,del ayed release TAKE 1 CAPSULE BY MOUTH TWICE DAILY active Not Available Not Available No t Available duloxetine 60 mg capsule,del ayed release TAKE 1 CAPSULE BY MOUTH DAILY active Not Available Not Available No t Available solifenacin 5 mg tablet active Not Available Not Available Not Available Euflexxa 10 mg/mL (mw 2.4-3.6 million) intra-artic ular syringe in office 03/22 completed Not Available Not Available Not Available estradiol-n orethindron e acet 0.5 mg-0.1 mg tablet TAKE 1 TABLET BY MOUTH DAILY 03/22 completed Not Available Not Available Not Available ropivacaine (PF) 5 mg/mL (0.5 %) injection solution in office 03/22 completed Not Available Not Available Not Available ID NOW COVID-19 Test Kit TEST DIRECTED TODAY 03/22 completed Not Available Not Available Not Available Vitals Date Recorded Body height Body mass index (BMI) Body weight Provider Name and Address Organization Details Last Updated DateTime 04/22/2023 154.94 cm 20.8 kg/m2 77239.16 g Thelma Lewis CNA [facility] 04/22/2023 15:15:07 Date Recorded Body height Body mass index (BMI) Body weight Provider Name and Address Organization Details Last Updated DateTime 07/24/2023 154.94 cm 20.8 kg/m2 69992.16 g Thelma Lewis CNA [facility] 07/24/2023 14:43:45 Date Recorded Body height Body mass index (BMI) Body weight Provider Name and Address Organization Details Last Updated DateTime 07/31/2023 154.94 cm 20.8 kg/m2 88053.16 g Thelma Lewis CNA [facility] 07/31/2023 14:40:49 Date Recorded Body height Body mass index (BMI) Body weight Provider Name and Address Organization Details Last Updated DateTime 08/07/2023 154.94 cm 20.8 kg/m2 11034.16 g GERARDO Haque [facility] 08/07/2023 14:43:07 Date Recorded Body height Body mass index (BMI) Body weight Heart rate Respiratory rate Body temperature Oxygen saturation Oxygen saturation in Arterial blood by Pulse oximetry Systolic blood pressure Diastolic blood pressure Provider Name and Address Organization Details Last Updated DateTime 154.94 cm 20.8 kg/m2 25003.1 6 g 64 /min 12 /min 97.6 [degF] 99 % 99 % 110 mm[Hg] 70 mm[Hg] Keren Henriquez [facility] [employer] [facility] 16:27:50 Social History Question Answer Notes LastModified by [employer] ion Details LastModified Time Tobacco Smoking Status Never Smoker Not Available [facility] 01/09/2023 01:32:42 What Is Your Level Of Alcohol Consumption? None [id number] Information not available 01/09/2023 Sex: Unknown Functional Status None recorded. Mental Status None recorded. Family History Relationship Description Onset Age of this Age Resolved Age Notes LastModified by Organization Details LastModified Time Father Heart disease [id number] [id number] Not available 01/09/2023 01:32:54 Father Hypertensive disorder [id number] Not available 01/09/2023 01:32:54 Mother Diabetes mellitus [id number] [id number] Not available 01/09/2023 01:32:54 Medical History Condition Response OSTEOPOROSIS Y HEARTBURN / REFLUX Y Gynecological HistoryNo gynecological history recorded. Obstetrics History GPAL:G 0 P 0 0 0 0 Past Encounters Encounter ID Performer Location Encounter Start Date Encounter Closed Date Diagnosis/Indication Diagnosis SNOMED-CT Code Diagnosis ICD10 Code Diagnosis Note [id number] [facility] [place] [address] [place] [address] 05/30/2022 00:00:00 05/31/2022 10:29:13 [id number] [facility] [place] [address] [place] [address] 07/04/2022 00:00:00 07/07/2022 11:48:21 [id number] [facility] [place] [address] [place] [address] 08/22/2022 00:00:00 08/26/2022 13:00:59 [id number] [facility] [place] [address] [place] [address] 08/26/2022 00:00:00 08/26/2022 11:18:49 [id number] [facility] [place] [address] [place] [address] 10/07/2022 00:00:00 10/07/2022 12:37:33 [id number] [facility] [place] [address] [place] [address] 11/14/2022 00:00:00 11/14/2022 12:07:46 [id number] [facility] [place] [address] [place] [address] 12/03/2022 00:00:00 12/03/2022 15:50:47 [id number] [facility] [place] [address] [place] [address] 12/31/2022 00:00:00 12/31/2022 15:42:17 [id number] [facility] [place] [address] [place] [address] 01/07/2023 00:00:00 01/07/2023 16:31:14 [id number] COREY Bailey [facility] [place] [address] [place] [address] 01/14/2023 15:40:06 01/14/2023 16:43:52 Osteoarthritis of right knee joint 3426908800 18549 M17.11 Derangemen t of right knee 1112524390 8168021 M23.91 Chondromal acia of right patella 1267306731 9828233 M22.41 Radial tea r of lateral meniscus 164088763 S83.281D [id number] COREY Bailey [facility] [place] [address] [place] [address] 01/21/2023 15:44:31 01/21/2023 15:56:22 Chondromalacia of right patella 6688463171 7231911 M22.41 Derangemen t of right knee 1472903465 9980780 M23.91 Radial tea r of lateral meniscus 275310691 S83.281D Osteoarthr itis of right knee joint 0208053812 04698 M17.11 [id number] Vladislav Lopez MD [facility] [place] [address] [place] [address] 02/25/2023 15:03:48 02/25/2023 16:01:03 Chondromalacia of right patella 1193757173 7528291 M22.41 Derangemen t of right knee 1583795259 5745551 M23.91 Radial tea r of lateral meniscus 214612632 S83.281D Osteoarthr itis of right knee joint 4017228499 08070 M17.11 [id number] Vladislav Lopez MD [facility] [place] [address] [place] [address] 03/25/2023 15:01:44 03/25/2023 15:43:25 Chondromalacia of right patella 6123561969 3460061 M22.41 Derangemen t of right knee 8752466399 9305448 M23.91 Radial tea r of lateral meniscus 685360964 S83.281D Osteoarthr itis of right knee joint 7692390390 38076 M17.11 [id number] Vladislav Lopez MD [facility] [place] [address] [place] [address] 04/22/2023 15:05:03 04/22/2023 15:59:19 Chondromalacia of right patella 6071477405 1190387 M22.41 Derangemen t of right knee 5805762551 0587266 M23.91 Radial tea r of lateral meniscus 724620234 S83.281D Osteoarthr itis of right knee joint 6890356961 45525 M17.11 [id number] COREY Bailey [facility] [place] [address] [place] [address] 07/24/2023 14:39:29 07/24/2023 15:03:04 Chondromalacia of right patella 6581344027 3214425 M22.41 Derangemen t of right knee 0928542161 2427941 M23.91 Radial tea r of lateral meniscus 974015789 S83.281D Osteoarthr itis of right knee joint 6349392721 59363 M17.11 [id number] COREY Bailey [facility] [place] [address] [place] [address] 07/31/2023 14:35:19 07/31/2023 15:00:15 Derangement of right knee 2059328444 8229551 M23.91 Chondromal acia of right patella 5425340688 8606148 M22.41 Radial tea r of lateral meniscus 204368341 S83.281D Osteoarthr itis of right knee joint 9843735941 47875 M17.11 [id number] COREY Bailey [facility] [place] [address] [place] [address] 08/07/2023 14:40:59 08/07/2023 15:24:59 Chondromalacia of right patella 4730480725 3101445 M22.41 Derangemen t of right knee 3077083488 2974041 M23.91 Osteoarthr itis of right knee joint 2160898571 08471 M17.11 Radial tea r of lateral meniscus 984630686 S83.281D [id number] Vincent Uriarte DPM [facility] [place] [address] [place] [address] 03/22/2024 16:04:31 03/23/2024 13:07:16 Bunion 010947490 M21.619 treatment options reviewed in detailbila teral foot x-rays reviewed with patientric e therapyrec ommend- wide shoe gear, soft toe box, silicone offloading device, [facility] pinnaclefo llow-up as needed if continues to be problemati c may require surgery Tailor's b union of right foot 2819438407 629093 M21.621 treatment options reviewed in detailreco mmendation s per above Pain in both feet 651799 3788 0410814 M79.671 M79.672 Health Concerns Section Related Observation LastModified by Organization Detai ls LastModified Time None Recorded Concern Status LastModified by Organization Details LastModified Time None Recorded Advance Directives Directive None Recorded Payers Encounter Date Sequence Insurance Name Policy Number Policy De Guzman Covered Member ID De Guzman Member ID Guarantor Name 04/22/2023 1 [facility] ON OR AFTER 05/10/21 (MEDICAID REPLACEMENT - HMO) Nasreen Contreras [id number] Nasreen Contreras 07/24/2023 1 [facility] ON OR AFTER 05/10/21 (MEDICAID REPLACEMENT - HMO) Nasreen Contreras [id number] Nasreen Contreras 07/31/2023 1 [facility] ON OR AFTER 05/10/21 (MEDICAID REPLACEMENT - HMO) Nasreen Contreras [id number] Nasreen Contreras 08/07/2023 1 [facility] ON OR AFTER 05/10/21 (MEDICAID REPLACEMENT - HMO) Nasreen Contreras [id number] Nasreen Contreras 03/22/2024 1 [facility] ON OR AFTER 05/10/21 (MEDICAID REPLACEMENT - HMO) Nasreen Contreras [id number] Nasreen Contreras Notes Date Note Type Note Provider Name and Address Organization Details Recorded Time 04/22/2023 text/html Patient returns knee pain right. She she has obtain reasonable relief from the gel shots in the cortisone. Today she is relatively asymptomatic. Vladislav Lopez MD [address] [place] [address], [facility] [address], [place], [address], [place] [facility] 04/22/2023 15:30:04 07/24/2023 text/html Patient returns for Euflexxa injection number 1 right knee. The patient has chronic mild to moderate primary osteoarthritis previous MRI scan shows tear of the body and anterior horn lateral meniscus medial meniscus is intact. Low-grade tricompartmental osteoarthritis is noted on the MRI as well. The patient had discussed treatment options in detail with Dr. Lopez she elected to continue with conservative measures she got excellent relief from the last round of gel shots for about 4 months but it has worn off she would like to repeat the gel shots today. COREY Bailey [address], [place], [address], [facility] 07/24/2023 14:56:57 07/31/2023 text/html patient returns for Euflexxa injection number 2 right knee. Patient has puah-kg-rcoheiby primary osteoarthritis noted on MRI she also has a tear of the body of the anterior horn lateral meniscus medial meniscus is intact. She has low-grade tricompartmental osteoarthritis Dr. Lopez has recommended gel shot series she would rather do this than surgical intervention which may not give her good relief. She had no problems with the 1st injection right knee. COREY Bailey [address], [place], [address], [facility] [employer] [facility] 07/31/2023 14:58:19 08/07/2023 text/html Patient returns for Euflexxa injection number 3 right knee. She has tfwr-fz-fubqjsus primary osteoarthritis noted on previous MRI scan and also tear of the body and anterior horn lateral meniscus medial meniscus is intact. She has low-grade tricompartmental osteoarthritis she discussed treatment options in detail previously with Dr. Lopez has elected to proceed with gel shots she does not want to go through any surgery. Most the pain is patellofemoral in nature. She states she is getting some relief but not quite the relief she is looking for yet from the 1st 2 rounds of injections. COREY Bailey [address], [place], [address], [facility] 08/07/2023 15:03:21 03/22/2024 text/html . Patient is a 58-year-old female who presents the office with complaints of bilateral foot pain. Patient states that she has not had any injury to the foot but states when she is walking she has pain. Patient states she likes to avidly work out and has discomfort to the bunion and tailor's bunion area. Patient states that she has tried some wider shoe gear which she states has helped but not significantly. Patient denies any other complaints. Vincent Uriarte DPM [address] [facility] [address], [place], [address], [facility] 03/23/2024 09:35:50 OBGyn Episode No OBEpisode recorded.
--- OUTSIDE RECORDS SUMMARY | 2024-12-22 16:09 | XMS_ITS | Encounter Summary ---
Author Organization [facility] Healthcare Address [address] [place] [address] Care Team Providers Care Hat Conditioner Name Role Phone Iain Banegas MD Primary Care Provider [phone] Leidy Chapa NP Primary Care Provider [phone] Encounter Details Date Type Department Care Team (Late st Contact Info) Description 08/07/2021 Telephone [place] [id number] [facility] 1st [place] [address] Nery Myles, KAUR Social History Tobacco Use Types Packs/Day Years Used Date Smoking Tobacco: Never Smokeless Tobacco: Never Alcohol Use Standard Drinks/Week Comments Yes 0 (1 standard drink = 0.6 oz pur e alcohol) RARE AUDIT-C Answer Date Recorded Q1: How often do you have a drink containing alc ohol? Monthly or less 08/09/2021 Average Number of Drinks Not on file 021 Frequency of Binge Drinking Not on file 07/13 PHQ-2 Answer Date Recorded PHQ-2 Total Score (If total score is 3 or more points, staff should administer the PHQ-9) 0 08/03/2021 Comments No Sex and Gender Information Value Date Recorded Sex Assigned at Not on file Legal Sex Female 11:00 AM SERGER Gender Identity Not on file Sexual Orientation Not on file documented as of this encounter Miscellaneous Notes * Pre-Procedure Instructions - Nery Myles RN - 08/07/2021 11:49 AM CDT Patient received NPP and will bring it completed at 1300 08/09/2021 documented in this encounter Plan of Treatment Not on file documented as of this encounter Goals Goal Patient Goal Type Associated Problems Recent Progress Patient-Stated? Author CCM Chronic Pain Care Plan Chronic Care Management No change(05/16 8:28 AM CDT) No Keke Winkler, KAUR Note: Problem: Chronic Pain Goals: 1. Minimize further functional decline 2. Maximize quality of life 3. Control pain Strategies: - Activity/exercise program recommendation - Conservative stepwise pain medicine strategy with multi-disciplinary approach - Recommend healthy lifestyle strategies and compensatory methods as needed documented as of this encounter Visit Diagnoses Not on filedocumented in this encounter Care Teams Hat Conditioner Relationship Specialty Start Date End Date Iain Banegas MD [address] [place], [place] [id number] PCP - General 09/13/19 09/08/23 Leidy Chapa NP [address] [place] [address] PCP - General Nurse Practitioner 09/09/23 documented as of this encounter
--- OUTSIDE RECORDS SUMMARY | 2024-12-22 16:09 | XMS_ITS | Patient Health Summary ---
Author Organization [facility] Address [address] [place] [address] Care Team Providers Care Fish Cleaner Machine Tender Name Role Phone Olga Sylvester APRN-MOTION PICTURE CAMERA OPERATOR Primary Care Provider Samuel Ayers DO Unavailable [phone] Note from [facility],non-owned Affiliates and Associated Physician Practices is amultiple site organization consisting of ambulatory clinics and hospital sitesin [place], [place], [place] and [place]. This disclosure is being madepursuant to the Care Everywhere program and may not contain all information available regarding this patient. Last updated 18.[facility] Allergies No known active allergies Medications * Be aware that medications may not be up to date on this document. Alwaysverify current medications with the patient. * Norgestim-Eth Estrad Triphasic (ORTHO TRI-CYCLEN, 28, PO) * Multiple Vitamin (MULTI VITAMIN PO) * Ascorbic Acid (VITAMIN C ER PO) Social History Tobacco Use Types Packs/Day Years Used Date Smoking Tobacco: Never Smokeless Tobacco: Never Alcohol Use Standard Drinks/Week Comments No 0 (1 standard drink = 0.6 oz pur e alcohol) Sex and Gender Information Value Date Recorded Sex Assigned at Not on file Gender Identity Not on file Sexual Orientation Not on file Last Filed Vital Signs Vital Sign Reading Time Taken Comments Blood Pressure 118/74 12/12/2018 11:42 AM MACHINE TENDER Pulse 64 12/12/2018 11:42 AM MACHINE TENDER Temperature 36.8 C (98.2 F) 12/12/2018 11:42 AM MACHINE TENDER Respiratory Rate 16 12/12/2018 11:42 AM MACHINE TENDER Oxygen Saturation 97% 12/12/2018 11:42 AM MACHINE TENDER Inhaled Oxygen Concentration - - Weight 49.9 kg (110 lb) 12/12/2018 11:42 AM MACHINE TENDER Height 154.9 cm (5' 1 ) 12/12/2018 11:42 AM MACHINE TENDER Body Mass Index 20.78 12/12/2018 11:42 AM MACHINE TENDER Procedures * URINALYSIS AUTO - POINT OF CARE (AMB) STL(Performed 12/12/2018) Performed for Urinary tract infection without hematuria, site unspecified * URINALYSIS AUTO - POINT OF CARE (AMB) STL(Performed 12/21/2017) Performed for Acute cystitis without hematuria Results * URINALYSIS AUTO - POINT OF CARE (AMB) STL (12/12/2018) Only the most recent of2 resultswithin the time period is included. Clarity UA POCT cloudy Color UA POCT yellow Leukocyte UA 15 Negative Nitrite UA POCT neg Negative Urobilinogen UA 0.2 0.1 - 1.0 Protein UA POCT 15 Negative pH UA 6.5 5.0 - 8.0 pH units Blood UA 5-10 Negative Specific [place] UA POCT 1.015 1.002 - 1.030 Ketone UA neg Negative Bilirubin UA POCT neg Negative Glucose UA neg Negative Expiration Date [id number] Lot # [id number] QC Verified Yes Yes Urine URINE / Unknown 12/12/2018 George Bhat APRN-MOTION PICTURE CAMERA OPERATOR LAB - POINT OF CARE ORDERABLES Care Teams Fish Cleaner Machine Tender Relationship Specialty Start Date End Date Olga Sylvester APRN-SAM [address] [place] [id number] PCP - General 07/23/21 Samuel Ayers DO [address] [place] [id number] Internal Medicine 07/23/21
--- OUTSIDE RECORDS SUMMARY | 2024-12-22 16:09 | XMS_ITS | Referral Summary ---
Author Organization [facility] Address [address] [facility] [address] [place] [address] Phone Care Team Providers Care State Epidemiologist Name Role Phone Leidy Chapa DESIGN DRAFTER Primary Care Provider [phone] Allergies Active Allergy Reactions Criticality Noted Date Comments Aspirin Nausea & Vomiting,Na usea only,Vomiting Medium 08/08/2021 Reaction: Nausea, Vomiting, , Reaction: Nausea, Vomiting, , Latex Itching,Swelling,Rash Medium 01/19/2020 Naproxen Medications EPINEPHrine 0.3 mg/0.3 mL auto-injection syringe EpiPen 2-David 0.3 mg/0.3 mL injection, auto-injector Active multivitamin capsule Take 1 capsule by mouth daily Active omeprazole (PriLOSEC) 40 mg capsule Take 1 capsule (40 mg total) by mouth daily 1 Active rOPINIRole (REQUIP) 0.25 mg tablet Take 1 tablet (0.25 mg total) by mouth nightly 1 Active NON FORMULARY, FOR CLINIC ADMINISTERED MEDICATIONS ONLY, (not in database) 1 each once ARED II Active ibuprofen (ADVIL,MOTRIN) 200 mg tab/cap Take 1 tablet/capsule (200 mg total) by mouth every 6 (six) hours as needed for pain Takes infrequently Active DULoxetine DR (CYMBALTA) 20 mg capsule Take 1 capsule (20 mg total) by mouth 2 (two) times a day 2 Active alendronate (FOSAMAX) 70 mg tablet Take 1 tablet (70 mg total) by mouth every 7 days Take in the morning with a full glass of water, on an empty stomach, and do not take anything else by mouth or lie down for the next 30 min. 4 tablet 11 4 025 Active solifenacin (VESIcare) 5 mg tabletIndication s:OAB (overactive bladder),Urgency of urination,Noctur ia Take 1 tablet (5 mg total) by mouth daily 90 tablet 3 4 025 Active Active Problems Problem Noted Date Diagnosed Date Peripheral vascular disease, unspecified 023 Assessment & Plan (09/17/2023 3:59 PM WASHING MACHINE OPERATOR): Impression: Patient complains of numbness to bilateral lower extremities with prolonged sitting and standing. She denies any symptoms of claudication, ischemic rest pain or ulcerations to her lower extremity. Patient has palpable distal pulses to bilateral lower extremities. Patient underwent a lower extremity arterial Doppler at an outside facility which showed normal ABIs. Plan: No surgical interventions indicated at this time. -patient to follow-up on an as-needed basis. Macular degeneration 08/25/2013 Overview (02/14/2017): Macular degeneration Insomnia 09/30/2012 Overview (02/14/2017): Insomnia Immunizations Name Administration Dates Next Due Influenza, Split 08/25/2013 Pfizer SARS-CoV-2 Monovalent Vaccination (12+ Yrs) PURPLE 11/27/2021,03/24/2021,02/20/2021 Social History Tobacco Use Types Packs/Day Years Used Date Smoking Tobacco: Never Smokeless Tobacco: Never Tobacco Cessation:Counseling Given: Not Answered Alcohol Use Standard Drinks/Week Comments Yes 0 (1 standard drink = 0.6 oz pur e alcohol) RARE AUDIT-C Answer Date Recorded Q1: How often do you have a drink containing alc ohol? Never 05/16/2022 Average Number of Drinks Not on file 022 Frequency of Binge Drinking Not on file 05/2022 PHQ-2 Answer Date Recorded PHQ-2 Total Score (If total score is 3 or more points, staff should administer the PHQ-9) 0 09/09/2023 Comments No Sex and Gender Information Value Date Recorded Sex Assigned at Not on file Legal Sex Female 11:00 AM WASHING MACHINE OPERATOR Gender Identity Not on file Sexual Orientation Not on file Last Filed Vital Signs Vital Sign Reading Time Taken Comments Blood Pressure 130/72 09/09/2023 10:57 AM CDT Pulse 61 05/16/2022 11:04 AM CDT Temperature 36.3 C (97.3 F) 04/22/2024 1:50 PM CDT Respiratory Rate 14 05/16/2022 11:04 AM CDT Oxygen Saturation 99% 05/16/2022 11:04 AM CDT Inhaled Oxygen Concentration - - Weight 47.2 kg (104 lb) 09/17/2023 8:36 AM WASHING MACHINE OPERATOR Height 154.9 cm (5' 1 ) 09/17/2023 8:36 AM WASHING MACHINE OPERATOR Body Mass Index 19.65 09/17/2023 8:36 AM WASHING MACHINE OPERATOR Plan of Treatment Not on file Goals Goal Patient Goal Type Associated Problems [...] lifestyle strategies and compensatory methods as needed Procedures Procedure Name Priority Date/Time Associated Diagnosis Comments SCREENING MAMMOGRAM BILATERAL W HORACE Schedule Routine, Read Routine (OP Routine) 02/11/2024 2:26 PM CDT Screening mammogram, encounter for PAP AND HIGH RISK HPV, REFLEX TO GENOTYPING Routine 08/19/2022 2:56 PM CDT Well woman exam from Last 3 Months or Most Recently Relevant to Health Maintenance Results * Screening Mammogram Bilateral W Horace (02/11/2024 2:26 PM CDT) Anatomical Region Laterality Modality Breast Bilateral Mammography 02/11/2024 2:30 PM CDT Impressions 02/11/2024 2:30 PM CDT There is no mammographic evidence of malignancy. A 1 year screening mammogram is recommended. BI-RADS: 1 - Negative. The patient has been or will be contacted. The patient will be entered into a reminder system with a target due date of 1 year for her next mammogram. Electronically signed by: Toby Camacho M.D. Narrative 02/11/2024 2:30 PM CDT EXAMINATION: SCREENING MAMMOGRAM BILATERAL W HORACE ORDERING HEALTHCARE PROVIDER: SELF SCREENING MAMMOGRAM HISTORY: Routine screening mammography. COMPARISON: 09/30/2022, 08/17/2021, 08/23/2020, 08/02/2019 TECHNIQUE: CC and MLO views of the bilateral breasts were obtained with digital technique using breast tomosynthesis with C view. Computer aided detection was utilized. FINDINGS: DENSITY: The tissue of the breasts is extremely dense, which lowers the sensitivity of mammography. BREASTS: There are no suspicious masses, suspicious calcifications, or other suspicious findings in either breast. There has been no suspicious interval change. us Self Screening Mammogram IMG MAMMO PROCEDURES Fi nal Result * (ABNORMAL) Pap and High Risk HPV, reflex to Genotyping (08/19/2022 2:56 PM CDT) CLINICAL INFORMATION: [facility] Comment:None given LMP [facility] Comment:NONE GIVEN Previous Pap [facility] Comment:NONE GIVEN Prev. Bx [facility] Comment:NONE GIVEN SOURCE: [facility] Comment:Cervix, Endocervix Pap, specimen adequacy [facility] Comment: Satisfactory for evaluation. Endocervical/transformation zone component present. Age and/or menstrual status not provided HPV interp [facility] Comment:Negative for intraep ithelial lesion or malignancy. Tool Maintenance Technician [facility] Comment: JOSEPH, CT(ASCP) CT screening location: [place] [address] [address] [address] [address] Review plant safety engineer [facility] Comment: ABC, CT(ASCP) CT screening location: [place] [address] [address] [place] [address] Comment [facility] Comment: EXPLANATORY NOTE: The Pap is a screening test for cervical cancer. It is not a diagnostic test and is subject to false negative and false positive results. It is most reliable when a satisfactory sample, regularly obtained, is submitted with relevant clinical findings and history, and when the Pap result is evaluated along with historic and current clinical information. Human papillomavirus DNA, High Risk E6/E7 Detected (A) NOT DETECTED [employer]/ [facility] Comment: Detected One or more High Risk HPV types (16,18,31,33, 35,39,45,51,52,56,58,59,66,68) was detected. Methodology: Real Time PCR Thin prep 08/19/2022 2:56 PM CDT 08/19/2022 11:04 PM CDT us Josseline Brown DESIGN DRAFTER LAB CYTOLOGY ORDERABLES F inal Result [facility] [address] [facility] [place] [address] Nila Edgeio/Jessica [facility] [address] [place] [address] from Last 3 Months or Most Recently Relevant to Health Maintenance Insurance [facility] Care Teams State Epidemiologist Relationship Specialty Start Date End Date Leidy Chapa NP [address] [place] [address] PCP - General Nurse Practitioner 09/09/23
--- OUTSIDE RECORDS SUMMARY | 2024-12-22 16:09 | XMS_ITS | Clinical Summary ---
Author Organization [facility] Address [address] [facility] [address] [place] [address] Phone Care Team Providers Care Frame Fixer Name Role Phone Leidy Chapa PORTFOLIO DIRECTOR Primary Care Provider [phone] Allergies Active Allergy Reactions Criticality Noted Date [...] 023 Assessment & Plan (09/17/2023 3:59 PM MUSIC PROFESSIONALS): Impression: Patient complains of numbness to bilateral [...] SARS-CoV-2 Monovalent Vaccination (12+ Yrs) PURPLE 11/27/2021,03/24/2021,02/20/2021 Surgical History Surgery Date Site/Laterality Comments OTHER SURGICAL HISTORY 11/10/1995 - 11/09/1996 : TONSILLECTOMY 11/10/1995 - 11/09/1996 Tonsillectomy EYE SURGERY EYE SURGERY Medical History Medical History Date Comments Hx Other Medical 1995 ; Outc ome: 29 week 5 lb(s) Male Hx Other Medical retinal macular degeneration Macular degeneration High cholesterol Anxiety Urinary tract infection Wears glasses Light sensitivity Bruises easily Constipation Frequent urination Bruises easily Depression Family History Medical History Relation Name Comments Alcohol abuse Brother Clotting disorder Father Heart disease Father Hypertension Father Diabetes Mother Diabetes mellit us; Relation Name Status Comments Brother Father Mother Social History Tobacco Use Types Packs/Day Years [...] on file Legal Sex Female 11:00 AM MUSIC PROFESSIONALS Gender Identity Not on file Sexual Orientation Not on file Obstetrics History Para Term AB IAB SAB Ectopic Multiple Livin g Live Births 5 2 1 1 3 3 1 1 Date Outcome GA Total Labor Labor/2nd/3rd Weight Sex Type Anes PTL Siobhan A1 A5 Name Clin SAB SAB SAB Term Last Filed Vital Signs Vital Sign Reading Time Taken Comments Blood Pressure 130/72 09/09/2023 10:57 AM CDT Pulse 61 05/16/2022 11:04 AM CDT Temperature 36.3 C (97.3 F) 04/22/2024 1:50 PM CDT Respiratory Rate 14 05/16/2022 11:04 AM CDT Oxygen Saturation 99% 05/16/2022 11:04 AM CDT Inhaled Oxygen Concentration - - Weight 47.2 kg (104 lb) 09/17/2023 8:36 AM MUSIC PROFESSIONALS Height 154.9 cm (5' 1 ) 09/17/2023 8:36 AM MUSIC PROFESSIONALS Body Mass Index 19.65 09/17/2023 8:36 AM MUSIC PROFESSIONALS Plan of Treatment Health Maintenance Due Date Last Done Comments Colon Cancer Screening-Colonoscopy 1965 Hepatitis C Screening 1965 DTaP/Tdap/Td Vaccine (1 - Tdap) 1975 1964 Hepatitis B Screening 1982 Zoster Vaccine (1 of 2) 2014 Cervical Cancer Screening 08/19/2023 08/19/2022, Covid-19 Vaccine ( season) 2024 11/27/2021, 03/24/2021, 02/20/2021 Influenza Vaccine (#1) 2024 08/25/2013 Depression Screening 09/09/2024 09/09/2023, 08/03/2021, 07/28/2020 Regular Well Visit/Exam 18-64 09/09/2024 09/09/2023, 08/19/2022, 08/03/2021, Additional history exists Breast Cancer Screening-Mammogram 02/10/2025 02/11/2024, 09/30/2022, 08/17/2021, Additional history exists Pneumococcal vaccine <65 Aged Out No longer eligible based on patient's age to complete this topic Goals Goal Patient Goal Type Associated Problems Recent Progress Patient-Stated? Author CCM Chronic Pain Care Plan Chronic Care Management No change(05/16 8:28 AM CDT) No Keke Winkler RN Note: Problem: Chronic Pain Goals: 1. Minimize [...] Genotyping (08/19/2022 2:56 PM CDT) CLINICAL INFORMATION: [facility] Comment:None given LMP [facility] Comment:NONE GIVEN Previous Pap [facility] Comment:NONE GIVEN Prev. Bx [facility] Comment:NONE GIVEN SOURCE: [facility] Comment:Cervix, Endocervix Pap, specimen adequacy [facility] Comment: Satisfactory for evaluation. Endocervical/transformation zone component present. Age and/or menstrual status not provided HPV interp [facility] Comment:Negative for intraep ithelial lesion or malignancy. [facility] [facility] Comment: JOSEPH, CT(ASCP) CT screening location: [place] [address] [address] [address] Review doorshaker [facility] Comment: ABC, CT(ASCP) CT screening location: [place] [address] [address] [place] [address] [address] Comment [facility] Comment: EXPLANATORY NOTE: The Pap is [...] High Risk E6/E7 Detected (A) NOT DETECTED [employer]/ [facility] Comment: Detected One or more High Risk HPV types (16,18,31,33, 35,39,45,51,52,56,58,59,66,68) was detected. Methodology: Real Time PCR Thin prep 08/19/2022 2:56 PM CDT 08/19/2022 11:04 PM CDT us Josseline Brown PORTFOLIO DIRECTOR LAB CYTOLOGY ORDERABLES F inal Result [facility] [address] [place] [id number] [employer]/Jessica [facility]St[facility] [address] [place] [address] from Last 3 Months or Most Recently Relevant to Health Maintenance Insurance [facility] Care Teams Frame Fixer Relationship Specialty Start Date End Date Leidy Chapa NP [address] [place] [address] PCP - General Nurse Practitioner 09/09/23
--- OUTSIDE RECORDS SUMMARY | 2024-12-22 16:09 | XMS_ITS | Encounter Summary ---
Author Organization [facility] Healthcare Address [address] [place] [address] Care Team Providers Care Machine Tack Puller Name Role Phone Iain Banegas MD Primary Care Provider [phone] Leidy Chapa NP Primary Care Provider Encounter Details Date Type Department Care Team (Late st Contact Info) Description 04/11/2022 Telephone [facility] [address] [facility] [address] [place] [address] Anu Gong MD [address] [facility] [address] [place] [address] Social History Tobacco Use Types Packs/Day Years Used Date Smoking Tobacco: Never Smokeless Tobacco: Never Alcohol Use Standard Drinks/Week Comments Yes 0 (1 standard drink = 0.6 oz pur e alcohol) RARE AUDIT-C Answer Date Recorded Q1: How often do you have a drink containing alc ohol? Monthly or less 02/05/2022 Q2: How many drinks containi ng alcohol do you have on a typical day when you are drinking? 1 or 2 02/05/2022 Q3: How often do you have si x or more drinks on one occasion? Never 02/05/2022 PHQ-2 Answer Date Recorded PHQ-2 Total Score (If total score is 3 or more points, staff should administer the PHQ-9) 0 08/03/2021 Comments No Sex and Gender Information Value Date Recorded Sex Assigned at Not on file Legal Sex Female 11:00 AM TECH WRITER Gender Identity Not on file Sexual Orientation Not on file documented as of this encounter Plan of Treatment Not on file documented as of this encounter Goals Goal Patient Goal Type Associated Problems Recent Progress Patient-Stated? Author CCM Chronic Pain Care Plan Chronic Care Management No change(05/16 8:28 AM CDT) Keke Willson, KAUR Note: Problem: Chronic Pain Goals: 1. Minimize further functional decline 2. Maximize quality of life 3. Control pain Strategies: - Activity/exercise program recommendation - Conservative stepwise pain medicine strategy with multi-disciplinary approach - Recommend healthy lifestyle strategies and compensatory methods as needed documented as of this encounter Visit Diagnoses Not on filedocumented in this encounter Care Teams Machine Tack Puller Relationship Specialty Start Date End Date Iain Banegas MD [address] [place] [address] PCP - General 09/13/19 09/08/23 Leidy Chapa NP [address] [place] [address] PCP - General Nurse Practitioner 09/09/23 documented as of this encounter
--- OUTSIDE RECORDS SUMMARY | 2024-12-22 16:09 | XMS_ITS | Clinical Summary ---
Author Organization [facility] Address [address] [place] [address] Care Team Providers Care Corporate Quality Manager Name Role Phone Nga Olga Carey APRN-FILTER BED PLACER Primary Care Provider Samuel Ayers DO Unavailable [phone] Source Comments [facility],non-owned Affiliates and Associated Physician Practices is amultiple site organization consisting of ambulatory clinics and hospital sitesin [place], [place], [place] and [place]. This disclosure is being madepursuant to the Care Everywhere program and may not contain all information available regarding this patient. Last updated 18.[facility] Allergies No known active allergies Medications * Be aware that medications may not be up to date on this document. Alwaysverify current medications with the patient. Medication Sig Dispensed Refills Start Date End Date Status Norgestim-Eth Estrad Triphasic (ORTHO TRI-CYCLEN, 28, PO) Active Multiple Vitamin (MULTI VITAMIN PO) Active Ascorbic Acid (VITAMIN C ER PO) Active Social History Tobacco Use Types Packs/Day Years [...] Comments Blood Pressure 118/74 12/12/2018 11:42 AM CARTON FILLING MACHINE OPERATOR Pulse 64 12/12/2018 11:42 AM CARTON FILLING MACHINE OPERATOR Temperature 36.8 C (98.2 F) 12/12/2018 11:42 AM CARTON FILLING MACHINE OPERATOR Respiratory Rate 16 12/12/2018 11:42 AM CARTON FILLING MACHINE OPERATOR Oxygen Saturation 97% 12/12/2018 11:42 AM CARTON FILLING MACHINE OPERATOR Inhaled Oxygen Concentration - - Weight 49.9 kg (110 lb) 12/12/2018 11:42 AM CARTON FILLING MACHINE OPERATOR Height 154.9 cm (5' 1 ) 12/12/2018 11:42 AM CARTON FILLING MACHINE OPERATOR Body Mass Index 20.78 12/12/2018 11:42 AM CARTON FILLING MACHINE OPERATOR Plan of Treatment Health Maintenance Due Date Last Done Comments COLOGUARD (AGES 45-75) - COL ON CA SCREENING 1964 COLON MONITORING 1964 COLONOSCOPY - COLON CA SCREENING 1964 CT COLONOGRAPHY - COLON CA SCREENING 1964 Colorectal Cancer Screening 1964 FIT - COLON CA SCREENING 1964 FLEX SIG - COLON CA SCREENING 1964 LIPID TESTING 1964 HIV SCREENING 1979 HEPATITIS C SCREENING 07/31/1982 DTAP/TDAP/TD VACCINES (1 - Tdap) 1983 PAP with HPV 1994 PNEUMOCOCCAL VACCINE 50+ (1 of 1 - PCV) 2014 ZOSTER VACCINE (1 of 2) 2014 MAMMOGRAM 01/13/2019 01/13/2017 COVID-19 VACCINE ( - 2023-2 5 season) 2024 INFLUENZA VACCINE (#1) 2024 DEPRESSION SCREENING 11/10/2024 Respiratory Syncytial Virus (RSV) Vaccine Pt: or over 60 yrs (1 - 1-dose 75+ series) 2039 HEPATITIS B VACCINE Aged Out No longe r eligible based on patient's age to complete this topic HIB VACCINE Aged Out No longer eligi ble based on patient's age to complete this topic HPV VACCINE Aged Out No longer eligi ble based on patient's age to complete this topic MENINGOCOCCAL (Group B) VACCINE Aged Out No longer eligible based on patient's age to complete this topic MENINGOCOCCAL VACCINE Aged Out No mora anjum eligible based on patient's age to complete this topic PNEUMOCOCCAL VACCINE Aged Out No long er eligible based on patient's age to complete this topic Care Teams Corporate Quality Manager Relationship Specialty Start Date End Date Olga Sylvester, CLIENT DEVELOPMENT CONSULTANT-FILTER BED PLACER [address] [place] [phone] PCP - General 07/23/21 Samuel Ayers DO [address] [place] [phone] Internal Medicine 07/23/21
--- OUTSIDE RECORDS SUMMARY | 2024-12-22 16:09 | XMS_ITS | Referral Summary ---
Author Organization [facility] Address [address] [place] [address] Care Team Providers Care Accounting Specialist Name Role Phone Nga Olga Carey APRN-OYSTER SHIPPER Primary Care Provider Samuel Ayers DO Unavailable [phone] Source Comments [facility],non-owned Affiliates and Associated Physician Practices is amultiple site organization consisting of ambulatory clinics and hospital sitesin [place], [place], [place] and [place]. This disclosure is being madepursuant to the Care Everywhere program and may not contain all information available regarding this patient. Last updated 18.[facility] Allergies No known active allergies Medications [...] Comments Blood Pressure 118/74 12/12/2018 11:42 AM PLANS EXAMINER Pulse 64 12/12/2018 11:42 AM PLANS EXAMINER Temperature 36.8 C (98.2 F) 12/12/2018 11:42 AM PLANS EXAMINER Respiratory Rate 16 12/12/2018 11:42 AM PLANS EXAMINER Oxygen Saturation 97% 12/12/2018 11:42 AM PLANS EXAMINER Inhaled Oxygen Concentration - - Weight 49.9 kg (110 lb) 12/12/2018 11:42 AM PLANS EXAMINER Height 154.9 cm (5' 1 ) 12/12/2018 11:42 AM PLANS EXAMINER Body Mass Index 20.78 12/12/2018 11:42 AM PLANS EXAMINER Plan of Treatment Not on file Care Teams Accounting Specialist Relationship Specialty Start Date End Date Olga Sylvester, MUSIC ASSISTANT-OYSTER SHIPPER [address] [place] [phone] PCP - General 07/23/21 Samuel Ayers DO [address] [place] [phone] Internal Medicine 07/23/21
--- OUTSIDE RECORDS SUMMARY | 2024-12-22 16:09 | XMS_ITS | Data Portability ---
[facility] Address [address] [place] [address] Assessment No assessment recorded. Plan of Treatment Reminders Order Date Submit Date Provider Last Modified By Organization Details Last Modified Time Details Appointments None recorded. Lab pap, IG + HR HPV 2014 015 [facility], [address], [address], [place], [address], 5 17:23:31 bacterial vaginosis + vaginitis panel, vaginal 2014 015 [facility], [address], [address], [place], [address], 5 14:49:34 pap, IG + HPV, cervical 2015 016 [facility], [address] [place] [address], [address], [place], [address], 6 04:29:14 Referral None recorded. Procedures None recorded. Surgeries None recorded. Imaging mammogram, screening 2014 015 [facility] [address] [place], [address], 5 18:35:01 x-ray, chest, 2 view - A/P, lateral... .cough for 2 months. 2015 016 [email or web address] Not available 6 15:07:41 Medication Orders Loestrin Fe 11/29 (28-Day) 1 mg-20 mcg (21)/75 mg (7) tablet 2014 Mer etienne [id number], [address], [place], [id number], 5 09:16:21 TriNessa (28) 0.18 mg(7)/0.21 5 mg(7)/0.25 mg(7)-35 mcg tablet [address] [id number], [address], [place], [id number], 6 10:55:02 Diflucan 150 mg tablet [email or web address] [place] [address] [facility]694, [address], [place], [id number], 6 10:55:02 Patient TargetsNo targets recorded. Patient Instructions Encounter Date Encounter Id Patient Instructions Last Modified By Organization Details Last Modified Time 03/14/2015 [id number] temporomandibula r disorder: care instructions [email or web address] Not available 03/14/2015 15:37:53 03/29/2015 [id number] learning about b irth control: combination pills [email or web address] Not available 03/29/2015 18:07:40 To take oc's manuel e time daily. Repeat mammogram negative. To make apt for annual 08/24. mpass Not available 03/29/2015 12:39:10 Wants to start O C's to help with acne. mpass Not available 03/29/2015 12:39:10 08/22/2015 [id number] To get mammogram next month. mpass Not available 08/22/2015 09:35:15 Pt. very happy t hat Tri-morris has cleared up her facial acne. Wants to continue. Must keep up with mammograms to continue. mpass Not available 08/22/2015 09:35:15 01/05/2016 [id number] cough: care instructions [email or web address] Not available 01/05/2016 13:48:18 08/26/2016 [id number] Core Needle [place] [address] Biopsy: About This Test Not available 08/26/2016 14:42:58 Will stop OC's. Gave pt. list of derms for facial acne. Not available 08/26/2016 14:42:59 Reason for Referral None Reported. Results Created Date Observation Date Name Description Value Unit Range Abnormal Flag Note LastModifiedBy Organization Detail LastModifiedTime 08/26/20 16 08/28/2016 pap, IG + HPV, cervi yari diagnosis: JALIL CHANG TIKA FOR INTRA EPITH ELIAL CAIT Peck AND SHARMIN LOPEZ . Not Available [facility] ([facility]) [address] [place], [address], 08/29/2016 11:16:54 08/26/20 16 08/28/2016 pap, IG + HPV, cervi yari specimen adequacy: JALIL Solano SATIS FACTO RY FOR EVALU ATION . ENDOC ERVIC AL AND/O R SQUAM OUS METAP LASTI C CELLS (ENDO CERVI YARI COMPO NENT) ARE PRESE NT. Not Available [facility] ([facility]) [address] [place], [address], 08/29/2016 11:16:54 08/26/20 16 08/28/2016 pap, IG + HPV, cervi yari clinician provided ICD10: JALIL Solano Z01.4 19 Not Available [facility] ([facility]) [address] [place], [address], 08/29/2016 11:16:54 08/26/20 16 08/28/2016 pap, IG + HPV, cervi yari performed by: JALIL Rojas, CYTOT ROSLYN Solano (ASCP ) Not Available [facility] ([facility]) [address] [place], [address], 08/29/2016 11:16:54 08/26/20 16 08/28/2016 pap, IG + HPV, cervi yari . . Not Available [facility] ([facility]) [address] [place], [address], 08/29/2016 11:16:54 08/26/20 16 08/28/2016 pap, IG + HPV, cervi yari note: COMMEN T THE PAP SMEAR IS A SCREE JENNIFER TEST DESIG CLAIR TO AID IN THE DETEC TION OF FANTA LIGNA NT AND MALIG NANT CONDI TIONS OF THE UTERI NE CERVI X. IT IS NOT A DIAGN OSTIC PROCE DURE AND SHOUL D NOT BE USED THE SOLE MEANS OF DETEC TING CERVI YARI CANCE R. BOTH FALSE -POSI TIVE AND FALSE -NEGA TIVE REPOR TS DO OCCUR . Not Available [facility] ([facility]) [address] [facility], [place], [address], 08/29/2016 11:16:54 08/26/20 16 08/28/2016 pap, IG + HPV, cervi yari test methodology: COMMEN T THIS LIQUI D BASED THINP REP(R ) PAP TEST WAS SCREE CLAIR WITH THE USE OF AN IMAGE GUIDE Joseph Ledezma. Not Available [facility] ([facility]) [address] [facility], [place], [address], 08/29/2016 11:16:54 08/26/20 16 08/29/2016 pap, IG + HPV, cervi yari HPV aptima NEGATI VE negati ve THIS TEST DETEC TS FOURT EEN HIGH- RISK HPV TYPES (16/1 8/31/ 33/35 /39/4 5/ 51/52 /56/5 8/59/ 66/68 ) WITHO UT DIFFE RENTI ATION . Not Available [facility] ([facility]) [address] [place], [address], 08/29/2016 11:16:54 03/09/20 15 09/16/2014 imagi ng/di agnos tic resul t No observ ation record ed. [facility] [address] [place], [address], 03/13/2015 11:29:39 03/22/20 15 03/21/2015 MAMMO , diagn ostic , digit al, unila teral No observ ation record ed. mpass [facility] ([facility]) Scheduling [address] [place], [address], 03/27/2015 11:25:11 03/31/20 15 03/31/2015 imagi ng/di agnos tic resul t No observ ation record ed. dbogue [facility] ([facility]) Scheduling [address] [place], [address], 01/05/2016 10:56:11 11/01/20 15 10/31/2015 mammo gram, scree jennifer No observ ation record ed. [address], [address], 08/26/2016 09:55:49 11/01/20 15 10/31/2015 mammo gram, scree jennifer No observ ation record ed. [address], [address], 08/26/2016 09:55:49 11/02/20 15 10/31/2015 mammo gram, scree jennifer No observ ation record ed. [facility] ([facility]) Scheduling [address] [place], [address], 08/26/2016 09:55:49 11/07/20 15 10/31/2015 mammo gram, scree jennifer No observ ation record ed. mpass Not Available 2015 09:55:49 11/22/19 16 09/16/2014 imagi ng/di agnos tic resul t No observ ation record ed. mpass Not Available 2015 09:55:50 01/05/20 16 01/05/2016 x-ray , chest , 2 view No observ ation record ed. mpass [facility] [address] [place], [address], 08/26/2016 09:55:50 01/05/20 16 x-ray , chest , 2 view No observ ation record ed. [facility] Salazar Oakes MD [address], [place], [address], 08/26/2016 09:55:50 01/06/20 16 01/05/2016 MAMMO , diagn ostic , digit al, unila teral No observ ation record ed. [facility] Not Available 2015 09:55:50 01/06/20 16 01/05/2016 MAMMO , diagn ostic , digit al, unila teral No observ ation record ed. [facility] Not Available 2015 09:55:50 07/23/20 16 07/22/2016 MAMMO , diagn ostic , digit al, unila teral No observ ation record ed. [facility] Not Available 2015 09:55:50 Result Notes None recorded. 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 Active Ayana López GERMÁNMIRIAN Attn: Accounting ,[address] [place], [address] , [facility] 5 12:35:46 Candidal vulvovaginiti s 02667478 Active Ayana López GERMÁNMIRIAN Attn: Accounting ,[address] [facility], [place], [address] , [facility] 5 12:35:46 Temporomandib ular joint disorder 94500618 Active Olga Sylvester [place], [place] [facility] 5 15:37:53 Calcification of breast 164229874 Active Kellen Craig [place], [place] [facility] 5 16:48:21 Pruritus of vagina 58964070 Active Ayana Maribel [facility] Attn: Accounting ,[address] [facility], [place], [address] , [place] - [facility] 5 09:35:15 Acne 12877392 Active Ayana López [facility] Attn: Accounting ,[address] [facility], [place], [address] , [place] - [facility] 5 09:35:15 Neck pain 08668785 Active Jean Paul Graves [place], [place] [facility] 4 09:51:20 Backache 219412306 Active Ol[place] [facility] 5 09:37:06 Pain in cervical spine 037181685 Active [place] [facility] 5 13:54:14 Mammography abnormal 356570965 Active Minoo Ordonez [place] [facility] 6 14:42:58 Cough 95022434 Active Olga [place] [facility] 6 11:22:11 Problem Notes None recorded. Procedures Surgical History Date Name Laterality Status Provider Name and Address Organization Details Recorded Time 5 Date of Last Pap Smear completed Ivy Nobles [place] - [facility] 08/22/2015 09:16:20 4 Most Recent Mammogram completed Court Rouse [place] - [facility] 01/16/2015 11:03:21 3 Eye Surgery completed Jean Paul Graves [place] - [facility] 10/24/2014 09:51:21 Imaging Results Imaging Date Name Status LastModified by Organ atformerly [facility] Details LastModified Time 09/16/2014 imaging/diagnos tic result completed [facility] [address] [place], [address], 03/13/2015 11:29:39 03/21/2015 MAMMO, diagnostic, digital, unilateral completed mpass [facility] ([facility]) Scheduling [address] [place], [address], 03/27/2015 11:25:11 03/31/2015 imaging/diagnos tic result completed dbogue [facility] ([facility]) Scheduling [address] [place], [address], 01/05/2016 10:56:11 10/31/2015 mammogram, screening completed mpass [facility] [address], [address], 08/26/2016 09:55:49 10/31/2015 mammogram, screening completed mpass [facility] [address], [address], 08/26/2016 09:55:49 10/31/2015 mammogram, screening completed mpass [facility] ([facility]) Scheduling [address] [place], [address], 08/26/2016 09:55:49 10/31/2015 mammogram, screening completed Information not available 08/26/2016 09:55:49 09/16/2014 imaging/diagnos tic result completed Information not available 08/26/2016 09:55:50 01/05/2016 x-ray, chest, 2 view completed mpass [facility] [address], [address], 08/26/2016 09:55:50 01/05/2016 x-ray, chest, 2 view completed mpass Salazar Oakes MD [address], [place], [address], 08/26/2016 09:55:50 01/05/2016 MAMMO, diagnostic, digital, unilateral completed Information not available 08/26/2016 09:55:50 01/05/2016 MAMMO, diagnostic, digital, unilateral completed Information not available 08/26/2016 09:55:50 07/22/2016 MAMMO, diagnostic, digital, unilateral completed Information not available 08/26/2016 09:55:50 Procedure Notes None recorded. Medical Equipment None Reported. Allergies Allergen ID Allergen Name Allergen Category Reaction Reaction Severity Criticality Documentation Date Start Date Code Code System Note Provider Name and Address Organization Details Recorded Time 8720 aspirin medicatio n vomiting moderate Not available 10/24/2014 1191 RxNorm Not Available Not Available Not Available Medications Name Sig Start Date Stop Date Status Note LastModified by Organization Details LastModified Time trazodone 50 mg tablet active Not Available Not Available Not Available azithromyc in 250 mg tablet active Not Available Not Available Not Available fluconazol e 150 mg tablet Take 1 tablet as needed by oral route as directed for 1 day. active Not Available Not Available No t Available citalopram 10 mg tablet active Not Available Not Available Not Available tramadol 50 mg tablet Take 1 tablet twice a day by oral route. 2014 active Degenerat tika disc disesase mod cervical, mild thoracic, mild lumbar per xray 10/2014 Not Available Not Available Not Available Microgesti n FE 11/29 (28) 1 mg-20 mcg (21)/75 mg (7) tablet Take 1 tablet every day by oral route. active Not Available Not Available No t Available insulin syringe U-100 with needle 1 mL 31 gauge x 03/25 active Not Available Not Available Not Available methylpred nisolone 4 mg tablets in a dose pack active Not Available Not Available Not Available Ventolin HFA 90 mcg/actuat ion aerosol inhaler active Not Available Not Available Not Available Q-Dryl 12.5 mg/5 mL oral liquid active Not Available Not Available Not Available TriNessa (28) 0.18 mg(7)/0.21 5 mg(7)/0.25 mg(7)-35 mcg tablet TAKE 1 TABLET BY MOUTH EVERY DAY 2016 active Not Available Not Available Not Avai lable EpiPen 2-David 0.3 mg/0.3 mL injection, auto-injec tor active Not Available Not Available Not Available Vitals Date Recorded Oxygen saturation Oxygen saturation in Arterial blood by Pulse oximetry Body weight Body temperature Heart rate Body mass index (BMI) Body height Systolic blood pressure Diastolic blood pressure Provider Name and Address Organization Details Last Updated DateTime 5 97 % 97 % 21461.0 1411 g 98 [degF] 75 /min 19.5 kg/m2 154.94 cm 98 mm[Hg] 60 mm[Hg] Jean Paul Graves MA [facility] 5 15:14:55 Date Recorded Body height Body mass index (BMI) Body weight Systolic blood pressure Diastolic blood pressure Provider Name and Address Organization Details Last Updated DateTime 03/29/2015 154.94 cm 19.8 kg/m2 94097.19 885 g 94 mm[Hg] 58 mm[Hg] Jasmin Rome LPN [facility] 5 12:13:24 Date Recorded Body height Body mass index (BMI) Body weight Systolic blood pressure Diastolic blood pressure Provider Name and Address Organization Details Last Updated DateTime 08/22/2015 154.94 cm 19.7 kg/m2 54494.60 648 g 120 mm[Hg] 80 mm[Hg] Ivy Nobles [facility] 5 09:16:20 Date Recorded Body height Oxygen saturation Oxygen saturation in Arterial blood by Pulse oximetry Body temperature Body mass index (BMI) Heart rate Body weight Systolic blood pressure Diastolic blood pressure Provider Name and Address Organization Details Last Updated DateTime 6 154.94 cm 100 % 100 % 97.7 [degF] 20.3 kg/m2 72 /min 69690.1 59326 g 90 mm[Hg] 50 mm[Hg] Jean Paul Graves MA [facility] 6 10:55:01 Date Recorded Body height Body weight Body mass index (BMI) Systolic blood pressure Diastolic blood pressure Provider Name and Address Organization Details Last Updated DateTime 08/26/2016 154.94 cm 07501.79 g 20 kg/m2 112 mm[Hg] 78 mm[Hg] Minoo Ordonez [facility] 6 09:20:12 Social History Question Answer Notes LastModified by Organizat ion Details LastModified Time Tobacco Smoking Status Never Smoker Jean Paul Graves MA null, [facility] 10/24/2014 09:51:21 What Is Your Level Of Alcohol Consumption? None Information not available 10/24/2014 What Is Your Level Of Caffeine Consumption? Occasional Soda, Tea Information not available 10/24/2014 What Type Of Diet Are You Following? REGULAR Information not available 10/24/2014 How Many Children Do You Have? 1 [email or web address] Information not available 01/16/2015 General Stress Level High [email or web address] Information not available 10/24/2014 Sex: Unknown Functional Status Question Answer Note LastModified by Organization D etails LastModified Time What is your exercise level? None [email or web address] Information not available 10/24/2014 Mental Status None recorded. Family History Relationship Description Onset Age of this Age Resolved Age Notes LastModified by Organization Details LastModified Time Father Hypertensive disorder [email or web address] Not available 2014 09:16:20 Mother Diabetes mellitus [email or web address] Not available 2014 09:16:20 Medical History Condition Response Coronary Artery Disease N Kidney Cyst N Blood Diseases N Hyperthyroidism N Blood disorders N Blood Transfusion N MRSA N Emphysema N Depression N COPD N Blood Clots N Pneumonia N Premature N Peripheral Arterial Disease N Edema N TIA N Headaches/Migraines N Anxiety Disorder N Obesity N Polyps N Infertility N Acid Reflux (GERD) N Hematuria N Stroke N Neck Injury N Polio N Hospital Admission other than N Neurologic Disorder N Other Sleep Disorders N Rheumatoid Arthritis N Fibromyalgia N Abdominal Aortic Aneurysm Repair N Kidney Disease N Heart Conditions N Heart Disease/Heart Problems N Hospitalizations N Brain Tumors N Acne N Skin Problems N Eating Disorder N Meningitis N Constipation N Tuberculosis N Cerebral Palsy N Myocardial Infarction N Asthma N Substance Abuse N Peripheral Vascular Disease N Vertigo N Sleep Disorder N Cirrhosis N Pulmonary Embolism N Chicken Pox N Hematologic Disease N Flomax Use Past or Present N Anxiety/Depression N Thyroid Disease N Colon Cancer N Lung Disease N Glaucoma N Developmental or Behavioral Disorders N Bipolar N Pacemaker N Diverticulitis/Diverticulosis N Orthopedic Problems N Anesthesia Complications N Orthotics N Head Injury/Concussion N Congenital Anomalies N Sandhu Bite N Chronic Kidney Disease N Endometriosis N Liver Disease N Schizophrenia N Dialysis N Speech Delay N Chronic Obstructive Pulmonary Disease N Parkinson's Disease N Thyroid Problems N GI Problems N Developmental Delay N Anemia N Multiple Sclerosis N Immune System Disorder N Colon Polyps N Heart Attack (SC) N Diabetes N Cardiomyopathy N Blood Transfusions N Heart Problems/Murmur N Eye Trauma N Congestive Heart Failure (CHF) N Valvular Heart Disease N Hyperlipidemia N Double Vision Y Abuse/Domestic Violence N Hepatitis B N Lupus N Epilepsy/Seizures N Reflux/GERD N Aneurysm N Heart Disease N Bronchitis N Pre-Eclampsia N Hypertension N Heart Failure N Other N Gout N High Blood Pressure N Atrial Fibrillation N Kidney Stones N Head Trauma/Injury N Congenital Heart Disease N Spine Problems Y Gastrointestinal Disease N Lung Mass N Sinusitis N Obstructive Sleep Apnea N Muscle, Joint, or Bone Problems N Autoimmune disease N Vision or Eye Problems Y Arthritis N Blood Clot N Cancer N Seasonal allergies N Leg or Foot Ulcers N Raynaud's Disease N Aortic Aneurysm N Arrhythmia N Headaches N Heart Problems N Ambloypia N Ear or Hearing Problems N Hyperparathyroidism N Migraines N Artificial Joints N Kidney or Bladder Problems N NSAID Use N Encephalitis N PTSD N Ulcers N Prostate Hypertrophy N Bleeding Disorder N AIDS/HIV N Urinary Tract Infection N Back Problems N Allergies N Atrial Flutter N GERD/Reflux N Hepatitis N Autism Spectrum Disorder (ASD) N Breast Cancer N Hernia N Hypothyroidism N Breast Problem N Genitourinary Disease N Deep Vein Thrombosis N Varicose Veins N Cystic Fibrosis N Hearing Loss N Developmental Problems N Carotid Disease N Vitamin D Deficiency N ADHD N Bladder or Kidney Problems N High Cholesterol N [place] N Valvular Abnormalities N Psychiatric/Mental Health Condition N Organ Transplant N Foot Deformity N Allergies/Hayfever N Dyslipidemia N Hyponatremia N Diabetic Eye Disease N Osteoporosis/Osteopenia N Back Pain Y Proteinuria N Mental Illness N Neurological Problems N Ovarian Cancer N Bedwetting N Seizures/Epilepsy N Kidney Failure N Ocular trauma N Diverticulitis N Dementia N Sleep Apnea N Mental Problems N Warfarin Management N Osteoporosis N Gynecological History Statement/Question Response Abnormal Pap N Flow Light Sexually Active? Y Menses Monthly Y STIs/STDs N Date of Last Pap Smear 08/22/2015 Age at Menarche 15 Most Recent Mammogram 09/16/2014 Age at First Child 30 LMP Approximate Obstetrics History GPAL:G 3 P 1 0 2 1 Type Value Full Term 1 Spontaneous 2 Living 1 Total 3 Past Encounters Encounter ID Performer Location Encounter Start Date Encounter Closed Date Diagnosis/Indication Diagnosis SNOMED-CT Code Diagnosis ICD10 Code Diagnosis Note [id number] James GUADALUPE (Adult Med) [address] [place] [address] 10/24/2014 09:34:40 10/24/2014 12:07:43 Pain in cervical spine 998566312 NSAIDs prn. Heat/ice as needed. Ok to continue muscle rubs. Patient has not been to PT yet. MA to set up PT today. Due to patient complaint of 'grinding in neck' suspect arthritis. [id number] Ivy Ramirez (Adult Med) [address] [place] [address] 12/06/2014 08:43:51 12/06/2014 11:53:09 Degenerative disorder of macula 617148928 Patient seeing blind eyeletter , patient is unsure of name. Cataract [id number] Edilson bañuelos blind eyeletter . Degenerati on of intervertebral disc 74971932 xray lumbar showed multilevel degenerati ve disc disease and cervical xray moderate , Thoracic minimal , and Lumbar minimal' . No [id number] Ivy Ingram ([place] [address]) [address] [facility] [place] [address] 01/16/2015 10:54:48 01/16/2015 11:32:14 Perimenopausal disorder 712258464 Candidal vulvovaginitis 92757319 [id number] Avani Ramirez (Adult Med) [address] [place] [address] 03/14/2015 15:01:08 03/14/2015 16:20:33 Temporomandibular joint disorder 70899844 Patient to follow up with her dentist. Can use NSAIDs prn otc. Avoid chewing gum, or making repeatitiv e jaw motions. [id number] Ivy Ingram ([place] [address]) [address] [facility] [place] [address] 03/29/2015 12:04:41 03/29/2015 14:22:22 Uses oral contraception 8856479 [id number] Colt Ingram ([place] [address]) [address] [facility] [place] [address] 08/22/2015 09:05:41 08/22/2015 10:48:16 Screening mammography 95850078 Z12.31 Gynecologi c examination 31308923 Z01.419 Pruritus of vagina 05734 003 L29.3 Acne 84580538 L70.9 [id number] Olga Ramirez (Adult Med) [address] [place] [address] 01/05/2016 10:43:55 01/08/2016 15:07:41 Cough 79482179 R05 Will get chest xray- aspiration ? bronchitis ? Has been on zpak, albuterol, mucinex, robitussin , medrol dose david- all without much relief. Encouraged patient to try zyrtec daily for 2 weeks to see if possible allergen cause, although no post pharynx drainage or edematous turbinates noted on exam. [id number] Minoo Mery [facility] ([facility]) [address] [facility] [address] [place] [id number] 08/26/2016 09:01:34 08/26/2016 13:13:24 Gynecologic examination 59889854 Z01.419 Mammography abnormal 168 647747 R92.8 Screening mammography 24 745878 Z12.31 Health Concerns Section Related Observation LastModified by Organization Detai ls LastModified Time None Recorded Concern Status LastModified by Organization Details LastModified Time None Recorded Advance Directives Directive None Recorded Payers Encounter Date Sequence Insurance Name Policy Number Policy De Guzman Covered Member ID De Guzman Member ID Guarantor Name 03/14/2015 1 [facility] PRIOR TO 05/10/2021 (MEDICAID REPLACEMENT - HMO) Nasreen Contreras [id number] Nasreen Contreras 03/29/2015 1 [facility] PRIOR TO 05/10/2021 (MEDICAID REPLACEMENT - HMO) Nasreen Contreras [id number] Nasreen Contreras 08/22/2015 1 [facility] PRIOR TO 05/10/2021 (MEDICAID REPLACEMENT - HMO) Nasreen Contreras [id number] Nasreen Contreras 01/05/2016 1 [facility] PRIOR TO 05/10/2021 (MEDICAID REPLACEMENT - HMO) Nasreen Contreras [id number] Nasreen Contreras 08/26/2016 1 [facility] PRIOR TO 05/10/2021 (MEDICAID REPLACEMENT - HMO) Nasreen Contreras [id number] Nasreen Contreras Notes Date Note Type Note Provider Name and Address Organization Details Recorded Time 03/14/2015 text/html Has noticed jaw pain bilaterally the last week. Can reproduce pain when opening jaw widely and feels like jaw pops out of place. Unsure cause. Did have dental work done and had her mouth open a long time for it. DENISE Carter [facility] 03/14/2015 15:39:29 01/05/2016 text/html CoughReported bypatient.Severity: pain with cough(intermittent) Duration:symptoms lasting over 2 weeks (2 months) Context:non-smoker Modifying Factors:warm air stops cough Associated Symptoms:no fever; no chills; no heartburn; no nausea; no post nasal dripNotes:Dry cough, went to urgent care. Started albuterol without relief. Returned back to Urgent care and started antibiotic- slightly better, but not gone. Keeps home at 80 degress to stop cough. Outside cough stops in cold. No color to mucus. Thin mucus. Tried and failed otc cough syrup- but can't take ASA so only few options. Mucinex, medrol dose david, no relief. Never had chest xray. States regular tap water increases cough. DENISE Carter SI 01/05/2016 11:22:25 OBGyn Episode No OBEpisode recorded.
--- OUTSIDE RECORDS SUMMARY | 2024-12-22 16:09 | XMS_ITS | Clinical Summary ---
Author Organization [facility] Address [address] [place] [address] Phone Care Team Providers Care Inspector Semiconductor Wafer Name Role Phone Provider, Not On File Primary Care Provider Unav ailable Allergies Active Allergy Reactions Criticality Noted Date Comments Aspirin Vomiting,Nausea Medium 08/08/2021 Reaction: Nausea, Vomiting, , Latex Itching,Rash,Swelling Medium 01/19/2020 Medications solifenacin (VESICARE) 5 MG Tablet daily. 06/22/2021 Active Estradiol-Noret hindrone Acet 0.5-0.1 MG Tablet Take 1 Tablet by mouth daily. 07/21/2021 Active rOPINIRole (REQUIP) 0.25 MG Tablet TAKE 1 TABLET BY MOUTH EVERY NIGHT AT BEDTIME 06/21/2021 Active Multiple Vitamin (Multivitamins) Capsule Take 1 Capsule by mouth daily. Active Multiple Vitamins-Minera ls (PRESERVISION AREDS 2 PO) Take by mouth daily. Active other by Other route as needed. Sleeping Aid Active omeprazole (PriLOSEC) 20 MG CAPSULE DELAYED RELEASE Take 2 Capsules by mouth daily. 180 Capsule 3 08/24/2021 Active Active Problems No known active problems Family History Medical History Relation Name Comments Heart Disease Father Hypertension Father Colon Cancer Maternal Grandmother Diabetes Mother Relation Name Status Comments Father Maternal Grandmother Mother Social History Tobacco Use Types Packs/Day Years Used Date Smoking Tobacco: Never Smokeless Tobacco: Never Tobacco Cessation:Counseling Given: No Alcohol Use Standard Drinks/Week Comments Not Currently 0 (1 standard drink = 0.6 oz pur e alcohol) Sexually Active Control Partners Comments Not Currently Comments No Sex and Gender Information Value Date Recorded Sex Assigned at Not on file Legal Sex Female 11:44 PM CDT Gender Identity Not on file Sexual Orientation Not on file Last Filed Vital Signs Vital Sign Reading Time Taken Comments Blood Pressure 141/84 08/22/2021 8:47 AM CDT Pulse 51 08/22/2021 8:47 AM CDT Temperature 37 C (98.6 F) 08/22/2021 8:47 AM CDT Respiratory Rate 19 08/22/2021 8:47 AM CDT Oxygen Saturation 98% 08/22/2021 8:47 AM CDT Inhaled Oxygen Concentration - - Weight 46.7 kg (103 lb) 08/09/2021 1:00 PM CDT Height 154.9 cm (5' 1 ) 08/09/2021 1:00 PM CDT Body Mass Index 19.46 08/09/2021 1:00 PM CDT Plan of Treatment Health Maintenance Due Date Last Done Comments Hepatitis C Virus (HCV) Screening 1965 Pap Smear 1985 Cervical Cancer Screening (CCS) 1994 HPV/Cotest 1994 Cologuard 2014 Pneumococcal Immunization (5 0+ years) (1 of 1 - PCV) 2014 Zoster Immunization (1 of 2) 2014 Mammogram 08/02/2021 08/02/2019, 01/13/2017, 10/31/2015 Immunochemical Fecal Occult Blood 08/03/2022 08/03/2021, 07/27/2019 Influenza Immunization (#1) 2024 08/02/2020 SARS-COV-2 Immunization (3 - season) 2024 03/14/2021, 02/20/2021 Colonoscopy 08/22/2024 08/22/2021, 12/15/2014 Colorectal Cancer Screening 08/22/2024 Respiratory Syncytial Virus (RSV) Immunization (Adult) (1 - 1-dose 75+ series) 2039 08/22/2021, 12/15/2014 DTaP/Tdap/Td Immunization Discontinued 1965 TdaP Immunization Completed 1965 Hepatitis B Immunization Aged Out No longer eligible based on patient's age to complete this topic Meningococcal Immunization (ACWY) Aged Out No longer eligible based on patient's age to complete this topic Pneumococcal Immunization Combined Aged Out No longer eligible based on patient's age to complete this topic Rotavirus Immunization Aged Out No lo nger eligible based on patient's age to complete this topic Procedures Procedure Name Priority Date/Time Associated Diagnosis Comments THALIA SCREENING BILATERAL DIGITAL W CAD W MITZY Routine 08/02/2019 7:13 AM CDT Encounter for screening mammogram for malignant neoplasm of breast HM COLONOSCOPY Routine 12/15/2014 from Last 3 Months or Most Recently Relevant to Health Maintenance Results * THALIA SCREENING BILATERAL DIGITAL W CAD W MITZY (08/02/2019 7:13 AM CDT) Anatomical Region Laterality Modality breast Bilateral Mammography 08/02/2019 6:45 AM CDT Narrative 08/02/2019 10:21 AM CDT - THALIA SCREENING BILATERAL DIGITAL W CAD W MITZY BILATERAL DIGITAL SCREENING MAMMOGRAM 3D/2D WITH CAD WITH MEDIOLATERAL OBLIQUE CRANIOCAUDAL: 08/02/2019 The study was acquired using digital technology and interpreted from soft copy. Current study was also evaluated with ICAD version 7.2. CLINICAL: Routine screening. Patient has no complaints. No personal history of cancer. No family history of breast cancer. COMPARISONS: Comparison is made to exams dated: 01/13/2017, 07/22/2016, 01/05/2016, 01/05/2016, 10/31/2015, and 03/21/2015 [facility]. BREAST TISSUE:The tissue of both breasts is heterogeneously dense. This may lower the sensitivity of mammography. FINDINGS: No significant masses, calcifications, or other findings are seen in either breast. There has been no significant interval change. IMPRESSION: BI-RAD 1 NEGATIVE There is no mammographic evidence of malignancy. A 1 year screening mammogram is recommended. The patient has been or will be contacted. The patient will be entered into a reminder system with a target due date of 1 year for her next screening exam. Electronically signed by: Margarito solomon/cherelle:08/02/2019 10:00:47 Music Rehabilitation Therapist: Pamela Devries ([place]), [facility] letter sent: Normal Exam Reading location: [facility] BI-RADS: 1 Negative Procedure Note Margarito Lugo MD - 08/02/2019 - THALIA SCREENING BILATERAL DIGITAL W CAD W MITZY BILATERAL DIGITAL SCREENING MAMMOGRAM 3D/2D WITH CAD WITH MEDIOLATERAL OBLIQUE CRANIOCAUDAL: 08/02/2019 The study was acquired using digital technology and interpreted from soft copy. Current study was also evaluated with ICAD version 7.2. CLINICAL: Routine screening. Patient has no complaints. No personal history of cancer. No family history of breast cancer. COMPARISONS: Comparison is made to exams dated: 01/13/2017, 07/22/2016, 01/05/2016, 01/05/2016, 10/31/2015, and 03/21/2015 [facility]. BREAST TISSUE:The tissue of both breasts is heterogeneously dense. This may lower the sensitivity of mammography. FINDINGS: No significant masses, calcifications, or other findings are seen in either breast. There has been no significant interval change. IMPRESSION: BI-RAD 1 NEGATIVE There is no mammographic evidence of malignancy. A 1 year screening mammogram is recommended. The patient has been or will be contacted. The patient will be entered into a reminder system with a target due date of 1 year for her next screening exam. Electronically signed by: Margarito solomon/cherelle:08/02/2019 10:00:47 Music Rehabilitation Therapist: Pamela Devries (R), [facility] letter sent: Normal Exam Reading location: [facility] BI-RADS: 1 Negative us Josseline Brown APRN, CNP IMG MAMMO ORDERABLE S Final Result * HM COLONOSCOPY (12/15/2014) us Olga Sylvester APRN, CNP PROCEDURE/MINOR S URGICAL ORDERABLES Final Result from Last 3 Months or Most Recently Relevant to Health Maintenance Insurance MED[employer]ID [employer] Care Teams Inspector Semiconductor Wafer Relationship Specialty Start Date End Date Provider, Not On File [place] PCP - General 08/22/21
--- OUTSIDE RECORDS SUMMARY | 2024-12-22 16:09 | XMS_ITS | Continuity of Care Document ---
Author Organization [facility] Address [address] [place] [address] [place] [address] Phone Care Team Providers Care Civil Cadd Technician Name Role Phone Mannie Lakhani MD Unavailable Unavailable Procedures Procedure Date Eye Exam, New Patient Advance Directives Directive Yes / No Effective Date File Name No Information Encounters Encounter Description Practice Location Reason(s) For Visit Diagnoses Date Provider Providers Copied on Encounter [facility], [address] [place] [address] [address], [place], [place], [id number], [place] tel:[phone] [address] [place] Professional No Information [address] [facility] [address], [place], [place], [id number], [place]. tel:[phone] Family History Family Member Type Diagnosis Age At Onset No Information Payers Payer name Insurance type Covered democrat ID Authoriza tikaren(s) [employer] CI [id number] Social History Type Description Quantity Date Captured [...]
--- OUTSIDE RECORDS SUMMARY | 2024-12-22 16:09 | XMS_ITS | Encounter Summary ---
Author Organization [facility] Address [address] [place] [address] Phone Care Team Providers Care Turbine Attendant Name Role Phone Provider, Not On File Primary Care Provider Unav ailable Reason for Visit * Reason Comments Medication Refill Encounter Details Date Type Department Care Team ([facility] st Contact Info) Description 12/04/2022 Refill [facility] - Gastroenterology - [address] [place] [address] Mirella Quintanilla Sarai, PAC [address] [place] [address] Medication Refill Social History Tobacco Use Types Packs/Day Years Used Date Smoking Tobacco: Never Smokeless Tobacco: Never Alcohol Use Standard Drinks/Week Comments Not Currently 0 (1 standard drink = 0.6 oz pur e alcohol) Sexually Active Control Partners Comments Not Currently Comments No Sex and Gender Information Value Date Recorded Sex Assigned at Not on file Legal Sex Female 11:44 PM CDT Gender Identity Not on file Sexual Orientation Not on file documented as of this encounter Miscellaneous Notes * Telephone Encounter - Sharda Banegas RN - 12/04/2022 11:44 AM CST Pharmacy requesting refill of: Requested Prescriptions Refused Prescriptions Disp Refills ??? omeprazole (PriLOSEC) 20 MG CAPSULE DELAYED RELEASE [Pharmacy Med Name: OMEPRAZOLE 20MG CAPSULES] 180 Capsule 3 Sig: Take 2 Capsules by mouth daily. Last fill: 08/23/21 Patients last OV with GI: 08/08/21 Next Office Visit with GI: N/a Refill refused. Patient needs appointment. Attempt to call patient. Left voicemail. PLANER documented in this encounter Plan of Treatment Not on file documented as of this encounter Visit Diagnoses Not on filedocumented in this encounter Care Teams Turbine Attendant Relationship Specialty Start Date End Date Provider, Not On File [place] PCP - General 08/22/21 documented as of this encounter
== END 2024-12-22 16:03 | disposition home or self-care (01) ==
PROVIDERS: PCP Nurse Practitioner Family; Visit Provider Orthopaedic Surgery
DX: M19.011 Primary osteoarthritis, right shoulder (principal); M47.892 Other spondylosis, cervical region
CPT/HCPCS: 73030

== ENCOUNTER 2025-03-01 15:19 | Outpatient (CLI) | payer OTHER, SELFPAY ==
[2025-03-01 15:37] LABS: Basophils Percent Auto 0.6 % (0.2-1.2); Eosinophils Percent Auto 0.8 % (0-4.4); Hematocrit 41.3 % (37.0-47.0); Hemoglobin 13.7 g/dL (12.0-15.0); Immature Granulocyte Absolute 0.01 K/mm3 (0.00-0.031); Immature Granulocyte Percent A 0.2 % (0-0.5); Lymphocytes Absolute Auto 1.33 K/mm3 (0.9-3.2); Lymphocytes Percent Auto 27.4 % (18.3-44.2); Mean Corpuscular HGB Conc 33.2 g/dl (32-36); Mean Corpuscular Hemoglobin 31.9 pg (26-34); Mean Corpuscular Volume 96.3 fl (80-100); Mean Platelet Volume 11.6 fl (7.4-10.4); Monocytes Absolute Auto 0.4 K/mm3 (0.1-0.6); Monocytes Percent Auto 8.6 % (2.6-8.5); Neutrophils Percent Auto 62.4 % (45.5-73.1); Platelet Count Result 212 k/mm3 (150-375); Red Blood Count 4.29 M/mm3 (4.2-5.4); Red Cell Distribution Width 13.2 % (11.5-14.5); White Blood Count 4.9 K/mm3 (4.5-10.0)
[2025-03-01 15:56] LABS: Alanine Aminotransferase 21 U/L (6-35); Albumin Level 4.6 g/dL (3.5-5.1); Alkaline Phosphatase 67 U/L (38-126); Anion Gap 6 mmol/L (4-12); Aspartate Amino Transferase 34 U/L (14-36); Bilirubin,Total 0.6 mg/dL (0.2-1.3); Blood Urea Nitrogen 23 mg/dL (7-17); Calcium 9.3 mg/dL (8.4-10.2); Carbon Dioxide 30 mmol/L (22-30); Chloride 101 mmol/L (98-107); Cholesterol 246 mg/dL (0-200); Estimated Glomerular Filt Rate > 60; Glucose 92 mg/dL (65-110); Sodium 137 mmol/L (137-145); Triglycerides 91 mg/dL (<150)
[2025-03-01 15:57] LABS: Iron 88 ug/dL (37-170)
[2025-03-01 15:59] LABS: Hemoglobin A1C 5.3 % (<5.7)
[2025-03-01 16:01] LABS: LDL Cholesterol Direct 85 mg/dL
[2025-03-01 16:09] LABS: HDL Direct 113 mg/dL; Percent Iron Saturation 32 % (20-50)
[2025-03-01 16:12] LABS: Free T3 3.46 pg/mL (2.45-5.93)
[2025-03-01 16:34] LABS: Free T4 Free Thyroxine 0.99 ng/dL (0.78-2.19)
--- OUTSIDE RECORDS SUMMARY | 2025-03-01 17:29 | XMS_ITS | Clinical Summary ---
Author Organization [facility] Address [address] [place] [address] Phone Care Team Providers Care Residential Air Sealing Technician Name Role Phone Provider, Not On File [...] Comments Hepatitis C Virus (HCV) Screening 1965 Cologuard 2014 Pneumococcal Immunization (5 0+ years) (1 of 1 - PCV) 2014 Zoster Immunization (1 of 2) 2014 Immunochemical Fecal Occult Blood 08/03/2022 08/03/2021, 07/27/2019 Influenza Immunization (#1) 2024 08/02/2020 SARS-COV-2 Immunization (3 - season) 2024 03/14/2021, 02/20/2021 Colonoscopy 08/22/2024 08/22/2021, 12/15/2014 Colorectal Cancer Screening 08/22/2024 Respiratory Syncytial Virus (RSV) Immunization (Adult) (1 - 1-dose 75+ series) 2039 08/22/2021, 12/15/2014 DTaP/Tdap/Td Immunization Discontinued 1964 TdaP Immunization Completed 1965 Mammogram Discontinued 08/02/2019, 01/13/2017, 10/31/2015 Hepatitis B Immunization Aged Out No longer [...] 01/13/2017, 07/22/2016, 01/05/2016, 01/05/2016, 10/31/2015, and 03/21/2015 [facility]. BREAST TISSUE:The tissue of both breasts is [...] exam. Electronically signed by: Margarito solomon/cherelle:08/02/2019 10:00:47 Keypunch Operator: Pamela Devries (R), [facility] letter sent: Normal Exam Reading location: [facility] BI-RADS: 1 Negative Procedure Note Margarito Lugo [...] 01/13/2017, 07/22/2016, 01/05/2016, 01/05/2016, 10/31/2015, and [facility]/2015 [facility]. BREAST TISSUE:The tissue of both breasts is [...] exam. Electronically signed by: Margarito solomon/cherelle:08/02/2019 10:00:47 Keypunch Operator: Pamela Devries (R), [facility] letter sent: Normal Exam Reading location: [facility] BI-RADS: 1 Negative us Josseline Brown APRN, CNP IMG MAMMO ORDERABLE S Final Result * COLONOSCOPY (12/15/2014) us Olga Sylvester APRN, CNP PROCEDURE/MINOR S URGICAL ORDERABLES Final Result from Last 3 Months or Most Recently Relevant to Health Maintenance Insurance [employer] Care Teams Residential Air Sealing Technician Relationship Specialty Start Date End Date Provider, Not On File [place] PCP - General 08/22/21
--- OUTSIDE RECORDS SUMMARY | 2025-03-01 17:29 | XMS_ITS | Data Portability ---
Author Organization [facility] Address [address] [place] [address] Assessment No assessment recorded. Plan of Treatment Reminders Order Date Submit Date Provider Last Modified By Organization Details Last Modified Time Details Appointments None recorded. Lab pap, IG + HPV, cervical 2015 016 [facility], [address] [place] [address], [facility], [place], [address], 6 04:29:14 pap, IG + HR HPV 2014 015 [facility], [address] [place] [address], [address], [place], [address], 5 17:23:31 bacterial vaginosis + vaginitis panel, vaginal 2014 015 [facility], [address] [place] [address], [facility] [address], [place], [address], 5 14:49:34 Referral None recorded. Procedures None recorded. Surgeries None recorded. Imaging x-ray, chest, 2 view - A/P, lateral... .cough for 2 months. 2015 Vinnie oakley 1 Not available 6 15:07:41 mammogram, screening 2014 015 [facility] ([facility]), [address] [place], [address], 5 18:35:01 Medication Orders TriNessa (28) 0.18 mg(7)/0.21 5 mg(7)/0.25 mg(7)-35 mcg tablet 2014 015 [email or web address] [facility], [address] [place], [place], [id number], 6 10:55:02 Diflucan 150 mg tablet [address] [facility]98, [address], [place], [id number], 6 10:55:02 Loestrin Fe 11/29 (28-Day) 1 mg-20 mcg (21)/75 mg (7) tablet 2014 [facility], [address], [place], [id number], 5 09:16:21 Patient TargetsNo targets recorded. Patient Instructions Encounter Date Encounter Id Patient Instructions Last Modified By Organization Details Last Modified Time 03/14/2015 [id number] temporomandibula r disorder: care instructions [email or web address] Not available 03/14/2015 15:37:53 03/29/2015 [id number] learning about b irth control: combination pills [email or web address] Not available 03/29/2015 18:07:40 To take oc's manuel e time daily. Repeat mammogram negative. To make apt for annual 08/24. mpass Not available 03/29/2015 12:39:10 Wants to start O C's to help with acne. mpass Not available 03/29/2015 12:39:10 08/22/2015 [id number] To get mammogram next month. mpass Not available 08/22/2015 09:35:15 Pt. very happy t hat Tri-morris has cleared up her facial acne. Wants to continue. Must keep up with mammograms to continue. mpass Not available 08/22/2015 09:35:15 01/05/2016 [id number] cough: care instructions [email or web address] Not available 01/05/2016 13:48:18 08/26/[id number] Needle [address] Biopsy: About This Test Not available [...] AND SHARMIN LOPEZ . Not Available [facility] ([facility]) [address] [place], [address], 08/29/2016 11:16:54 08/26/20 16 08/28/2016 pap, IG + HPV, cervi yari specimen adequacy: JALIL Solano SATIS FACTO RY FOR EVALU ATION . ENDOC ERVIC AL AND/O R SQUAM OUS METAP LASTI C CELLS (ENDO CERVI YARI COMPO NENT) ARE PRESE NT. Not Available [facility] ([facility]) [address] [place], [address], 08/29/2016 11:16:54 08/26/20 16 08/28/2016 pap, IG + HPV, cervi yari clinician provided ICD10: JALIL Solano Z01.4 19 Not Available [facility] ([facility]) [address] [place], [address], 08/29/2016 11:16:54 08/26/20 16 08/28/2016 pap, IG + HPV, cervi yari performed by: JALIL Rojas, CYTOT ROSLYN Solano (ASCP ) Not Available [facility] ([facility]) [address] [place], [address], 08/29/2016 11:16:54 08/26/20 16 08/28/2016 pap, IG + HPV, cervi yari . . Not Available [facility] ([facility]) [address] [place], [address], 08/29/2016 11:16:54 08/26/20 16 08/28/2016 pap, IG [...] TS DO OCCUR . Not Available [facility] ([facility]) [address] [facility], [place], [address], 08/29/2016 11:16:54 08/26/20 16 08/28/2016 pap, IG + HPV, cervi yari test methodology: COMMEN T THIS LIQUI D BASED THINP REP(R ) PAP TEST WAS SCREE CLAIR WITH THE USE OF AN IMAGE GUIDE Joseph Ledezma. Not Available [facility] ([facility]) [address] [facility], [place], [address], 08/29/2016 11:16:54 08/26/20 16 08/29/2016 pap, IG + HPV, cervi yari HPV aptima NEGATI VE negati ve THIS TEST DETEC TS FOURT EEN HIGH- RISK HPV TYPES (16/1 8/31/ 33/35 /39/4 5/ 51/52 /56/5 8/59/ 66/68 ) WITHO UT DIFFE RENTI ATION . Not Available [facility] ([facility]) [address] [place], [address], 08/29/2016 11:16:54 03/09/20 15 09/16/2014 imagi ng/di agnos tic resul t No observ ation record ed. [facility] [address] [place], [address], 03/13/2015 11:29:39 03/22/20 15 03/21/2015 MAMMO , diagn ostic , digit al, unila teral No observ ation record ed. mpass [facility] ([facility]) Scheduling [address] [place], [address], 03/27/2015 11:25:11 03/31/20 15 03/31/2015 imagi ng/di agnos tic resul t No observ ation record ed. dbogue [facility] ([facility]) Scheduling [address] [place], [address], 01/05/2016 10:56:11 11/01/20 15 10/31/2015 mammo gram, scree jennifer No observ ation record ed. [address], [address], 08/26/2016 09:55:49 11/01/20 15 10/31/2015 mammo gram, scree jennifer No observ ation record ed. [address], [address], 08/26/2016 09:55:49 11/02/20 15 10/31/2015 mammo gram, scree jennifer No observ ation record ed. [facility] ([facility]) Scheduling [address] [place], [address], 08/26/2016 09:55:49 11/07/20 15 10/31/2015 mammo gram, scree jennifer No observ ation record ed. mpass Not Available 2015 09:55:49 11/22/19 16 09/16/2014 imagi ng/di agnos tic resul t No observ ation record ed. mpass Not Available 2015 09:55:50 01/05/20 16 01/05/2016 x-ray , chest , 2 view No observ ation record ed. mpass [facility] [address] [place], [address], 08/26/2016 09:55:50 01/05/20 16 x-ray , chest , 2 view No observ ation record ed. [facility] Salazar Oakes MD [address], [place], [address], 08/26/2016 09:55:50 01/06/20 16 01/05/2016 MAMMO , diagn ostic , digit al, unila teral No observ ation record ed. [facility] Not Available 2015 09:55:50 01/06/20 16 01/05/2016 MAMMO , diagn ostic , digit al, unila teral No observ ation record ed. [facility] Not Available 2015 09:55:50 07/23/20 16 07/22/2016 MAMMO , diagn ostic , digit al, unila teral No observ ation record ed. [facility] Not Available 2015 09:55:50 Result Notes None recorded. Problems Name Problem SNOMED Code Status Onset Date Resolution Date Notes Provider Name and Address Organization Details Recorded Time Degenerative disorder of macula 006044183 Active Olga cisneros, [place] - [facility] 5 09:56:18 Cataract 560002794 Active Olga cisneros[place] - [facility] 5 09:56:18 Degeneration of intervertebra l disc 70379937 Active Olga cisneros, [place] - [facility] 5 09:56:18 Perimenopausa l disorder 676306580 Active Ayana López GERMÁNMIRIAN Attn: Accounting ,[address] [place], [address] , [facility] - [facility] 5 12:35:46 Candidal vulvovaginiti s 38137355 Active Ayana López GERMÁNMIRIAN Attn: Accounting ,[address] [facility], [place], [address] , [facility] - [facility] 5 12:35:46 Temporomandib ular joint disorder 04292425 Active Olga Sylvester [place], [place] - [facility] 5 15:37:53 Calcification of breast 730825694 Active Kellen Craig [place] null, [place] [facility] 5 16:48:21 Pruritus of vagina 74539521 Active Ayana Maribel [facility] Attn: Accounting ,[address] [facility], [place], [address] , [place] - [facility] 5 09:35:15 Acne 49956571 Active Ayana López [facility] Attn: Accounting ,[address] [facility], [place], [address] , [place] - [facility] 5 09:35:15 Neck pain 37382874 Active Jean Paul Graves [place] [facility] 4 09:51:20 Backache 288961283 Active [place] [facility] 5 09:37:06 Pain in cervical spine 559533285 Active [place] [facility] 5 13:54:14 Mammography abnormal 830129483 Active Minoo Ordonez [place] [facility] 6 14:42:58 Cough 79104943 Active Olga [place] [facility] [...] Imaging Date Name Status LastModified by Organ [facility] Details LastModified Time 09/16/2014 imaging/diagnos tic result completed [facility] [address] [place], [address], 03/13/2015 11:29:39 03/21/2015 MAMMO, diagnostic, digital, unilateral completed mpass [facility] ([facility]) Scheduling [address] [place], [address], 03/27/2015 11:25:11 03/31/2015 imaging/diagnos tic result completed dbogue [facility] ([facility]) Scheduling [address] [place], [address], 01/05/2016 10:56:11 10/31/2015 mammogram, screening completed mpass [facility] [address], [address], 08/26/2016 09:55:49 10/31/2015 mammogram, screening completed mpass [facility] [address], [address], 08/26/2016 09:55:49 10/31/2015 mammogram, screening completed mpass [facility] ([facility]) Scheduling [address] [place], [address], 08/26/2016 09:55:49 10/31/2015 mammogram, screening completed Information not available 08/26/2016 09:55:49 09/16/2014 imaging/diagnos tic result completed Information not available 08/26/2016 09:55:50 01/05/2016 x-ray, chest, 2 view completed mpass [facility] [address], [address], 08/26/2016 09:55:50 01/05/2016 x-ray, chest, 2 view completed mpass Salazar Oakes MD [address], [place], [address], 08/26/2016 09:55:50 01/05/2016 MAMMO, diagnostic, digital, unilateral [...] Updated DateTime 5 97 % 97 % 21692.0 1411 g 98 [degF] 75 /min 19.5 kg/m2 154.94 cm 98 mm[Hg] 60 mm[Hg] Jean Paul Graves MA [facility] 5 15:14:55 Date Recorded Body height Body mass index (BMI) Body weight Systolic blood pressure Diastolic blood pressure Provider Name and Address Organization Details Last Updated DateTime 03/29/2015 154.94 cm 19.8 kg/m2 74258.19 885 g 94 mm[Hg] 58 mm[Hg] Jasmin Rome LPN [facility] 5 12:13:24 Date Recorded Body height Body mass index (BMI) Body weight Systolic blood pressure Diastolic blood pressure Provider Name and Address Organization Details Last Updated DateTime 08/22/2015 154.94 cm 19.7 kg/m2 17511.60 648 g 120 mm[Hg] 80 mm[Hg] Ivy Nobles [facility] 5 09:16:20 Date Recorded Body height Oxygen saturation Oxygen saturation in Arterial blood by Pulse oximetry Body temperature Body mass index (BMI) Heart rate Body weight Systolic blood pressure Diastolic blood pressure Provider Name and Address Organization Details Last Updated DateTime 6 154.94 cm 100 % 100 % 97.7 [degF] 20.3 kg/m2 72 /min 40706.1 45258 g 90 mm[Hg] 50 mm[Hg] Jean Paul Graves MA [facility] 6 10:55:01 Date Recorded Body height Body weight Body mass index (BMI) Systolic blood pressure Diastolic blood pressure Provider Name and Address Organization Details Last Updated DateTime 08/26/2016 154.94 cm 29733.79 g 20 kg/m2 112 mm[Hg] 78 mm[Hg] Minoo Ordonez [facility] 6 09:20:12 Social History Question Answer Notes LastModified by Organizat ion Details LastModified Time Tobacco Smoking Status Never Smoker Jean Paul Graves MA null, [facility] 10/24/2014 09:51:21 What Is Your Level Of Alcohol Consumption? None [email or web address] Information not available 10/24/2014 What Is Your Level Of Caffeine Consumption? Occasional Soda, Tea [email or web address] Information not available 10/24/2014 What Type Of Diet Are You Following? REGULAR [email or web address] Information not available 10/24/2014 How Many Children Do You Have? 1 [email or web address] Information not available 01/16/2015 General Stress Level High [email or web address] Information not available 10/24/2014 Sex: Unknown Functional Status Question Answer Note LastModified by Organization D etails LastModified Time What is your exercise level? None Information not available 10/24/2014 Mental Status None recorded. Family History Relationship Description Onset Age of this Age Resolved Age Notes LastModified by Organization Details LastModified Time Father Hypertensive disorder [email or web address] Not available 2014 09:16:20 Mother Diabetes mellitus [email or web address] Not available 2014 09:16:20 Medical History Condition Response Coronary Artery Disease N Blood Diseases N Kidney Cyst N Hyperthyroidism N Blood disorders N MRSA N Blood Transfusion N Emphysema N Blood Clots N COPD N Depression N Pneumonia N Peripheral Arterial Disease N Premature N Edema N TIA N Headaches/Migraines N Anxiety Disorder N Obesity N Infertility N Polyps N Acid Reflux (GERD) N Hematuria N Stroke N Neck Injury N Polio N Hospital Admission other than N Neurologic Disorder N Other Sleep Disorders N Rheumatoid Arthritis N Fibromyalgia N Abdominal Aortic Aneurysm Repair N Kidney Disease N Heart Conditions N Heart Disease/Heart Problems N Hospitalizations N Brain Tumors N Acne N Eating Disorder N Skin Problems N Constipation N Meningitis N Tuberculosis N Cerebral Palsy N Myocardial Infarction N Asthma N Substance Abuse N Peripheral Vascular Disease N Vertigo N Sleep Disorder N Cirrhosis N Pulmonary Embolism N Chicken Pox N Flomax Use Past or Present N Hematologic Disease N Anxiety/Depression N Thyroid Disease N Colon Cancer N Glaucoma N Lung Disease N Developmental or Behavioral Disorders N Bipolar N Pacemaker N Diverticulitis/Diverticulosis N Anesthesia Complications N Orthopedic Problems N Orthotics N Head Injury/Concussion N Congenital Anomalies N Sandhu Bite N Chronic Kidney Disease N Endometriosis N Liver Disease N Dialysis N Schizophrenia N Speech Delay N Chronic Obstructive Pulmonary Disease N Parkinson's Disease N Thyroid Problems N GI Problems N Developmental Delay N Anemia N Immune System Disorder N Multiple Sclerosis N Colon Polyps N Heart Attack ([place]) N Diabetes N Cardiomyopathy N Blood Transfusions N Heart Problems/Murmur N Eye Trauma N Congestive Heart Failure (CHF) N Valvular Heart Disease N Hyperlipidemia N Double Vision Y Abuse/Domestic Violence N Hepatitis B N Lupus N Epilepsy/Seizures N Reflux/GERD N Aneurysm N Bronchitis N Heart Disease N Hypertension N Pre-Eclampsia N Heart Failure N Other N Gout [...] N Kidney Failure N Ocular trauma N Dementia N Diverticulitis N Sleep Apnea N Mental Problems N [...] SNOMED-CT Code Diagnosis ICD10 Code Diagnosis Note [id number] James GUADALUPE (Adult Med) [address] [place] [address] 10/24/2014 09:34:40 10/24/2014 12:07:43 Pain in cervical spine 178907050 NSAIDs prn. Heat/ice as needed. Ok to continue muscle rubs. Patient has not been to PT yet. MA to set up PT today. Due to patient complaint of 'grinding in neck' suspect arthritis. [id number] Ivy Ramirez (Adult Med) [address] [place] [address] 12/06/2014 08:43:51 12/06/2014 11:53:09 Degenerative disorder of macula 043452999 Patient seeing market development specialist , patient is unsure of name. Cataract [phone] Edilson bañuelos market development specialist . Degenerati on of intervertebral disc 49458389 xray lumbar showed multilevel degenerati ve disc disease and cervical xray moderate , Thoracic minimal , and Lumbar minimal' . No [id number] Ivy Ingram ([place] [address]) [address] [facility] [place] [address] 01/16/2015 10:54:48 01/16/2015 11:32:14 Perimenopausal disorder 780205949 Candidal vulvovaginitis 70511122 [id number] Avani Ramirez (Adult Med) [address] [place] [address] 03/14/2015 15:01:08 03/14/2015 16:20:33 Temporomandibular joint disorder 05931291 Patient to follow up with her dentist. Can use NSAIDs prn otc. Avoid chewing gum, or making repeatitiv e jaw motions. [id number] Ivy Ingram ([place] [address]) [address] [facility] [place] [address] 03/29/2015 12:04:41 03/29/2015 14:22:22 Uses oral contraception 4746642 439030 Colt Ingram ([place] [address]) [address] [facility] [place] [address] 08/22/2015 09:05:41 08/22/2015 10:48:16 Screening mammography 19818042 Z12.31 Gynecologi c examination 75820833 Z01.419 Pruritus of vagina 39518 003 L29.3 Acne 70661163 L70.9 [id number] Olga Ramirez (Adult Med) [address] [place] [address] 01/05/2016 10:43:55 01/08/2016 15:07:41 Cough 45036319 R05 Will get chest xray- aspiration ? bronchitis ? Has been on zpak, albuterol, mucinex, robitussin , medrol dose david- all without much relief. Encouraged patient to try zyrtec daily for 2 weeks to see if possible allergen cause, although no post pharynx drainage or edematous turbinates noted on exam. [id number] Minoo Mery [facility] ([facility]) [address] [facility] [address] [place] [address] 08/26/2016 09:01:34 08/26/2016 13:13:24 Gynecologic examination 61651936 Z01.419 Mammography abnormal 168 831602 R92.8 Screening mammography 24 589554 Z12.31 Health Concerns Section Related Observation LastModified by Organization Detai ls LastModified Time None Recorded Concern Status LastModified by Organization Details LastModified Time None Recorded Advance Directives Directive None Recorded Payers Encounter Date Sequence Insurance Name Policy Number Policy De Guzman Covered Member ID De Guzman Member ID Guarantor Name 03/14/[address] [facility] PRIOR TO 05/10/2021 (MEDICAID REPLACEMENT - HMO) Nasreen Contreras [id number] Nasreen Contreras 03/29/[address] [facility] PRIOR TO 05/10/2021 (MEDICAID REPLACEMENT - HMO) Nasreen Contreras [id number] Nasreen Contreras 08/22/[address] [facility] PRIOR TO 05/10/2021 (MEDICAID REPLACEMENT - HMO) Nasreen Contreras [id number] Nasreen Contreras 01/05/[address] [facility] PRIOR TO 05/10/2021 (MEDICAID REPLACEMENT - HMO) Nasreen Contreras [id number] Nasreen Contreras 08/26/[address] [facility] PRIOR TO 05/10/2021 (MEDICAID REPLACEMENT - HMO) Nasreen Contreras [id number] Nasreen Contreras Notes Date Note Type Note Provider Name and Address Organization Details Recorded Time 03/14/2015 text/html Has noticed jaw pain bilaterally the last week. Can reproduce pain when opening jaw widely and feels like jaw pops out of place. Unsure cause. Did have dental work done and had her mouth open a long time for it. DENISE Carter [facility] 03/14/2015 15:39:29 01/05/2016 text/html CoughReported bypatient.Severity: pain [...]
--- OUTSIDE RECORDS SUMMARY | 2025-03-01 17:29 | XMS_ITS | Clinical Summary ---
Author Organization [facility] Address [address] [place] [address] Care Team Providers Care Copy Manager Name Role Phone Nga Olga Carey APRN-MACHINE SPECIALIST Primary Care Provider Samuel Ayers DO Unavailable [phone] Source Comments [facility],non-owned Affiliates and Associated Physician Practices is amultiple site organization consisting of ambulatory clinics and hospital sitesin [place], [place], [place] and [place]. This disclosure is being madepursuant to the Care Everywhere program and may not contain all information available regarding this patient. Last updated 18.[facility] Stretchr Allergies No known active allergies Medications * Be aware that medications may not be up to date on this document. Alwaysverify current medications with the patient. Norgestim-Eth Estrad Triphasic (ORTHO TRI-CYCLEN, 28, PO) Active Multiple Vitamin (MULTI VITAMIN PO) A ctive Ascorbic Acid (VITAMIN C ER PO) Ac tive Social History Tobacco Use Types Packs/Day Years Used Date Smoking Tobacco: Never Smokeless Tobacco: Never Alcohol Use Standard Drinks/Week Comments No 0 (1 standard drink = 0.6 oz pur e alcohol) Comments No Sex and Gender Information Value Date Recorded Sex Assigned at Not on file Legal Sex Female 12:12 PM CDT Gender Identity Not on file Sexual Orientation Not on file Last Filed Vital Signs Vital Sign Reading Time Taken Comments Blood Pressure 118/74 12/12/2018 11:42 AM MINE UTILITY OPERATOR Pulse 64 12/12/2018 11:42 AM MINE UTILITY OPERATOR Temperature 36.8 C (98.2 F) 12/12/2018 11:42 AM MINE UTILITY OPERATOR Respiratory Rate 16 12/12/2018 11:42 AM MINE UTILITY OPERATOR Oxygen Saturation 97% 12/12/2018 11:42 AM MINE UTILITY OPERATOR Inhaled Oxygen Concentration - - Weight 49.9 kg (110 lb) 12/12/2018 11:42 AM MINE UTILITY OPERATOR Height 154.9 cm (5' 1 ) 12/12/2018 11:42 AM MINE UTILITY OPERATOR Body Mass Index 20.78 12/12/2018 11:42 AM MINE UTILITY OPERATOR Plan of Treatment Health Maintenance Due [...] VACCINE ( - 2023-2 5 season) 2024 DEPRESSION SCREENING 11/10/2024 INFLUENZA VACCINE (Season Ended) 2025 Respiratory Syncytial Virus (RSV) Vaccine Pt: or [...] to complete this topic MENINGOCOCCAL (Group B) VACC INE SHARED DECISION-MAKING Aged Out No longer eligibl e based on patient's age to complete this topic MENINGOCOCCAL GROUPS A/C/Y/W VACCINE Aged Out No longer eligible b ased on patient's age to complete this topic Insurance [facility] Care Teams Copy Manager Relationship Specialty Start Date End Date Olga Sylvester, WOOD FLOUR MILLER-MACHINE SPECIALIST [address] [place] [phone] PCP - General 07/23/21 Samuel Ayers DO [address] [place] [phone] Internal Medicine 07/23/21
--- OUTSIDE RECORDS SUMMARY | 2025-03-01 17:29 | XMS_ITS | Continuity of Care Document ---
Author Organization [facility] Address [address] [place] [address] [place] [address] Phone Care Team Providers Care [place] Laborer Name Role Phone Mannie Lakhani MD Unavailable Unavailable Procedures Procedure Date Eye Exam, New Patient Advance Directives Directive Yes / No Effective Date File Name No Information Encounters Encounter Description Practice Location Reason(s) For Visit Diagnoses Date Provider Providers Copied on Encounter [facility], [address] [place] [address] [address], [place], [place], [id number], [place] tel:[phone] [address] [place] Professional No Information [address] [facility] [address], [place], [place], [address], [place]. tel:[phone] Family History Family Member Type Diagnosis Age At Onset No Information Payers Payer name Insurance type Covered green party ID Authoriza tikaren(s) [employer] CI [id number] Social History Type Description Quantity Date Captured [...]
--- OUTSIDE RECORDS SUMMARY | 2025-03-01 17:29 | XMS_ITS | Clinical Summary ---
Author Organization [facility] Address [address] [address] Phone Care Team Providers Care Temper Mill Operator Name Role Phone Leidy Chapa NP Primary Care Provider [phone] Allergies Active Allergy Reactions Criticality Noted Date Comments Aspirin Nausea & Vomiting,Nausea only,Vomiting Medium 08/08/2021 Latex Itching,Swelling,Rash Medium 01/19/2020 Naproxen Medications EPINEPHrine [...] 2 (two) times a day 2 Active solifenacin (VESIcare) 10 mg tabletIndication s:Mixed stress and urge incontinence Take 1 tablet (10 mg total) by mouth daily 30 tablet 1 5 025 Active alendronate (FOSAMAX) 70 mg tablet Take 1 tablet (70 mg total) by mouth every 7 days Take in the morning with a full glass of water, on an empty stomach, and do not take anything else by mouth or lie down for the next 30 min. 12 tablet 3 5 026 Active Active Problems Problem Noted Date Diagnosed Date Pruritus of vagina 01/27/2025 Perimenopausal disorder 01/27/2025 Pain of cervical spine 01/27/2025 Cataract 01/27/2025 Candidal vulvovaginitis 01/27/2025 Calcification of breast 01/27/2025 Peripheral vascular disease, unspecified 023 Assessment & Plan (09/17/2023 3:59 PM BLOOD BANK CUSTODIAN): Impression: Patient complains of numbness to bilateral [...] -patient to follow-up on an as-needed basis. Osteoarthritis 12/30/2022 Radial tear of lateral meniscus 12/02/2022 Chondromalacia of right patella 12/02/2022 Osteoarthritis of right knee 08/26/2022 Contact dermatitis 08/05/2022 Eczema 07/04/2022 Plantar fasciitis of right foot 05/31/2022 Foot pain 05/30/2022 Macular degeneration 08/25/2013 Overview (02/14/2017): Macular degeneration Insomnia 09/30/2012 Overview (02/14/2017): Insomnia Encounters Date Type Department Care Team Description 02/15/2025 2:00 PM CDT Ancillary Procedure [facility] 1 [facility] [address] [place] [address] Encounter for screening mammogram for malignant neoplasm of breast 02/01/2025 Results Follow-Up [address] [address] Miranda Hutson DO 01/27/2025 1:50 PM CDT Office Visit [facility] [address] [place] [address] Miranda Hutson DO Encounter for annual routine gynecological examination (Primary Dx); Screening for malignant neoplasm of cervix; Encounter for screening mammogram for malignant neoplasm of breast; Age-related osteoporosis without current pathological fracture 01/27/2025 3:09 AM CDT - 01/27/2025 11:59 PM CDT Hospital Encounter [facility] [address] [place] [address] Screening for malignant neoplasm of cervix Discharge Disposition: Discharge to home or self care 01/27/2025 Orders Only [facility] [address] [place] [address] Miranda Hutson DO Encounter for screening mammogram for malignant neoplasm of breast (Primary Dx) 01/06/2025 1:20 PM BLOOD BANK CUSTODIAN Office Visit [facility] [address] [facility] [address] [place] [address] Avani Quinn, FIELD EDUCATION COORDINATOR Mixed stress and urge incontinence (Primary Dx); Nocturia; OAB (overactive bladder) from Last 3 Months Immunizations Immunization Administration Dates Next Due Influenza, Quadrivalent, Spl it, Preservative Free, Intramuscular 08/02/2020 Influenza, Split 08/25/2013 Pfizer SARS-CoV-2 Monovalent Vaccination (12+ Yrs) PURPLE 11/27/2021,03/24/2021,02/20/2021 Tdap 1965 Surgical History Surgery Date Site/Laterality Comments OTHER [...] easily Constipation Frequent urination Bruises easily Depression GERD (gastroesophageal reflux disease) Cataract Blindness Family History Medical History Relation Name Comments Alcohol abuse Brother N/A Clotting disorder Father N/A Heart disease Father N/A Hypertension Father N/A Colon cancer Maternal Grandmother Diabetes Mother N/A Diabetes mellit us; Colon cancer Mother's Sister Colon cancer Sister Relation Name Status Comments Brother N/A Father N/A Maternal Grandmother Mother N/A Mother's Sister Sister Social History Tobacco Use Types Packs/Day Years [...] on file Legal Sex Female 11:00 AM BLOOD BANK CUSTODIAN Gender Identity Female 01/24/2025 4:27 PM CDT Sexual Orientation Choose not to disclose 2024 4:27 PM CDT Obstetrics History Para Term AB IAB SAB Ectopic Multiple Livin g Live Births 4 2 1 1 2 2 1 1 Date Outcome GA Total Labor Labor/2nd/3rd Weight Sex Type Anes PTL Siobhan A1 A5 Name Clin SAB SAB Term 1996 M Vaginal Living Last Filed Vital Signs Vital Sign Reading Time Taken Comments Blood Pressure 130/72 01/27/2025 1:57 PM CDT Pulse 61 05/16/2022 11:04 AM CDT Temperature 36.3 C (97.3 F) 04/22/2024 1:50 PM CDT Respiratory Rate 14 05/16/2022 11:04 AM CDT Oxygen Saturation 99% 05/16/2022 11:04 AM CDT Inhaled Oxygen Concentration - - Weight 48.5 kg (107 lb) 01/27/2025 1:57 PM CDT Height 154.9 cm (5' 1 ) 01/27/2025 1:57 PM CDT Body Mass Index 20.22 01/27/2025 1:57 PM CDT Plan of Treatment Health Maintenance Due Date Last Done Comments Colon Cancer Screening-Colonoscopy 1965 Hepatitis C Screening 1965 DTaP/Tdap/Td Vaccine (1 - Tdap) 1975 1965 Hepatitis B Screening 1982 Zoster Vaccine (1 of 2) 2014 Covid-19 Vaccine (4 - season) 2024 11/27/2021, 03/24/2021, 02/20/2021 Depression Screening 09/09/2024 09/09/2023, 08/03/2021, 07/28/2020 Influenza Vaccine (Season Ended) 2025 08/02/2020, 08/25/2013 Cervical Cancer Screening 01/27/20262024, 01/27/2025, 08/19/2022, Additional history exists Regular Well Visit/Exam 18-64 01/27/2026 01/27/2025, 09/09/2023, 08/19/2022, Additional history exists Breast Cancer Screening-Mammogram 02/15/2026 02/15/2025, 02/11/2024, 09/30/2022, Additional history exists Pneumococcal vaccine <65 Aged [...] HORACE Schedule Routine, Read Routine (OP Routine) 02/15/2025 2:08 PM CDT Encounter for screening mammogram for malignant neoplasm of breast HIGH RISK HPV DNA DETECTION WITH GENOTYPING Routine 01/27/2025 3:08 PM CDT Screening for malignant neoplasm of cervix PAP AND HIGH RISK HPV, REFLEX TO GENOTYPING Routine 01/27/2025 10:10 AM CDT Screening for malignant neoplasm of cervix MEASURE POST VOID RESIDUAL Routine 01/06/2025 1:47 PM BLOOD BANK CUSTODIAN Mixed stress and urge incontinence from Last 3 Months Results * Screening Mammogram Bilateral W Horace (02/15/2025 2:08 PM CDT) Anatomical Region Laterality Modality Breast Bilateral Mammography 02/15/2025 3:06 PM CDT Impressions 02/15/2025 3:06 PM CDT There is no mammographic evidence of malignancy. A 1 year screening mammogram is recommended. BI-RADS: 1 - Negative. The patient has been or will be contacted. The patient will be entered into a reminder system with a target due date of 1 year for her next mammogram. Electronically signed by: Margarito Lugo M.D. Narrative 02/15/2025 3:06 PM CDT EXAMINATION: SCREENING MAMMOGRAM BILATERAL W HORACE ORDERING HEALTHCARE PROVIDER: MIRANDA HUTSON HISTORY: Routine screening mammography. COMPARISON: 01/12/2024,09/16/2022, 03/15/2022, 03/05/2022, 01/25/2021, 11/01/2019, 08/10/2018 TECHNIQUE: CC and MLO views of the bilateral breasts were obtained with digital technique using breast tomosynthesis with C view. Computer aided detection was utilized. FINDINGS: DENSITY: The breasts are extremely dense, which lowers the sensitivity of mammography. BREASTS: There are no suspicious masses, suspicious calcifications, or other suspicious findings in either breast. There has been no suspicious interval change. us Miranda Hutson DO IMG MAMMO PROCEDURES Fi nal Result * High Risk HPV DNA Detection with Genotyping (Molecular component) (01/27/2025 3:08 PM CDT) HPV HR 16 Not Detected Not Detected [facility] Comment:Testing performed by : [facility], [address] [place]., [address] HPV HR 18 Not Detected Not Detected [facility] Comment:Testing performed by : [facility], [address] [place]., [address] HPV HR Non 16/18 Not Detected Not Detected [facility] Comment: Interpretive Data Nucleic acid amplification for detection of high-risk Human Papilloma virus (HPV) is performed by the Lewis Joe 6800 HPV test. This assay specifically detects HPV-16 and HPV-18 genotypes. The following HPV genotypes are detected as high-risk HPV: HPV-31, 33, 35, ,39, 45, 51, 52, 56, 58, 59, 66, and 68. This assay has been approved by the United States Food and Drug Administration for detection of HPV in cervical specimens collected by a physician using an endocervical brush/spatula or cervical broom and placed in the ThinPrep Pap Test PreservCyt collection containers. The performance characteristics of this test have been verified by the [facility] Molecular Infectious Disease laboratory. Correlate with separately reported cytology results, as applicable. Interpretive data last revised 23 Testing performed by: [facility], [address] [place]., [address] Endocervical 01/27/2025 3:08 PM CDT 01/28/2025 12:44 PM CDT Narrative [facility] - 01/29/2025 2:57 AM CDT Clinical history and diagnosis->Liquid-based PAP test with high risk HPV test- Z12.4 Number of vials->1 Testing type->Screening Last menstrual period (date if known)->N/A Menstrual status->Postmenopausal Contraceptive use->None us Miranda Hutson DO LAB BODY FLUIDS AND STO OLS ORDERABLES Final Result [facility] [address] [place] [address] [facility] * Pap and High Risk HPV and Genotyping (Cytology Component) (01/27/2025 10:10 AM CDT) Thin prep (Pap test) 01/27/2025 10:10 AM CDT 01/27/2025 10:10 AM CDT Narrative PATHOLOGY CH - 01/31/2025 12:24 PM CDT [facility] Department of Pathology [address] [place], [place] [id number] Final Report with Addendum Note to Patients: This report may contain a detailed description of human tissue sent by a health care provider to the laboratory for pathologic evaluation. The content of this report is essential for diagnosis and may provide important critical findings. This information may be unfamiliar to patients to review without a medical professional present. It is advised that the patient review this report in the presence of a health care provider who can answer questions and explain the details. Patient Name: NASREEN GODFREY Address: [address] [place] [address] Gender: F : 1965 (Age: 59) Service: Location: [facility] : [id number] [facility] #: [id number] Patient Type: [facility] SPECIMEN Taken: 01/27/2025 Received: 01/27/2025 Accessioned:: 01/28/2025 Reported: 01/31/2025 Physician(s): Matthew Peguero D.O. Diagnosis: SOURCE OF SPECIMEN SCREENING THIN PREP IMAGED PAP w/ HPV: STATEMENT OF ADEQUACY - Specimen satisfactory for interpretation; indeterminate endocervical component due to marked atrophy GENERAL CATEGORIZATION: - Negative for intraepithelial lesion or malignancy INTERPRETATION: - Atrophic smear pattern DEN Packer(ASCP) Report Electronically Reviewed and Signed Out By DEN Packer(ASCP) 01/31/2025 12:24:39Addenda: HPV Test Interpretation (Normal-Negative for High Risk HPV) HPV HR 16- Not detected HPV HR 18-Not detected HPV HR non 16/18- Not detected Interpretive Data Nucleic acid amplification for detection of high-risk Human Papilloma virus (HPV) is performed by the Lewis Joe 6800 HPV test. This assay specifically detects HPV- 16 and HPV-18 genotypes. The following HPV genotypes are detected as high-risk HPV: HPV-31, 33, 35, 39, 45, 51, 52, 56, 58, 59, 66, and 68. This assay has been approved by the [place] Food and Drug Administration for detection of HPV in cervical specimens collected by a physician using an endocervical brush/spatula or cervical broom and placed in the ThinPrep Pap Test PreservCyt collection containers. The performance characteristics of this test have been verified by the [facility] Molecular Infectious Disease laboratory. Correlate with reported cytology results, as applicable. Interpretive data last revised 23 DEN Packer(ASCP)Report Electronically Reviewed and Signed Out By DEN Packer(ASCP) 01/31/2025 09:49:13 Specimen(s) Received: A: SCREENING THIN PREP IMAGED PAP w/ HPV Clinical History: Menstrual History: Post-menopausal The Pap test is a screening test used to aid in the detection of cervical cancer and its precursors. It should not be the sole means by which malignant and premalignant lesions are diagnosed. Both false negative and false positive results may occur. It also has poor sensitivity for the detection of endometrial lesions and should not be used to evaluate suspected endometrial abnormalities. For these reasons it is most important to obtain Pap tests at regular intervals. The performance characteristics of some immunohistochemical stains, fluorescence in-situ hybridization tests and immunophenotyping by flow cytometry cited in this report (if any) were determined by the Surgical Pathology Department at [facility] as part of an ongoing quality internship program and in compliance with federally mandated regulations drawn from the Clinical Laboratory Improvement Act of 1988 (CLIA '88). Some of these tests rely on the use of analyte specific reagents and are subject to specific labeling requirements by the US Food and Drug Administration. Such diagnostic tests may only be performed in a facility that is certified by the Department of Health and Human Services as a high complexity laboratory under CLIA '88. The FDA has determined that such clearance or approval is not necessary. This test is used for clinical purposes. It should not be regarded as investigational or for research. Nevertheless, federal rules concerning the medical use of analyte specific reagents require that the following disclaimer be attached to the report: This test was developed and its performance characteristics determined by the Surgical Pathology Department [facility]. It has not been cleared or approved by the U. S. Food and Drug Administration. Miranda Hutson DO LAB [place]OLOGY [place] [address] [place] [address] * Measure post void residual (01/06/2025 1:47 PM BLOOD BANK CUSTODIAN) Eloise Cortés LPN - 01/06/2025 1:47 PM BLOOD BANK CUSTODIAN Measurement of post-voiding residual urine and/or bladder capacity by ultrasound, non-imaging. PVR = 29 mL Avani Quinn FIELD EDUCATION COORDINATOR NURSING ASSESSMENTS Final Res ult from Last 3 Months Insurance [facility] Care Teams Temper Mill Operator Relationship Specialty Start Date End Date Leidy Chapa NP [address] [place] [address] PCP - General Nurse Practitioner 09/09/23
--- OUTSIDE RECORDS SUMMARY | 2025-03-01 17:29 | XMS_ITS | Referral Summary ---
Author Organization [facility] Address [address] [facility] [address] [place] [address] Phone Care Team Providers Care Pocket Creaser Name Role Phone Leidy Chapa NP Primary Care Provider [phone] Encounters Date Type Department Care Team Description 02/15/2025 2:00 PM CDT Ancillary Procedure [facility] [address] [place] [address] Encounter for screening mammogram for malignant neoplasm of breast 02/01/2025 Results Follow-Up [address] [address] Miranda Hutson DO 01/27/2025 3:09 AM CDT - 01/27/2025 11:59 PM CDT Hospital Encounter [facility] [address] [place] [address] Screening for malignant neoplasm of cervix Discharge Disposition: Discharge to home or self care 01/27/2025 Orders Only [facility] [address] [place] [address] Miranda Hutson DO Encounter for screening mammogram for malignant neoplasm of breast (Primary Dx) 01/27/2025 1:50 PM CDT [facility] [address] [place] [address] Caryl, Miranda Jennifer, DO Encounter for annual routine gynecological examination (Primary Dx); Screening for malignant neoplasm of cervix; Encounter for screening mammogram for malignant neoplasm of breast; Age-related osteoporosis without current pathological fracture 01/06/2025 1:20 PM THERMOSTAT MACHINE TENDER Office Visit [facility] [address] [facility] [address] [place] [address] Avani Quinn, GERMÁN Mixed stress and urge incontinence (Primary Dx); Nocturia; OAB (overactive bladder) from Last 3 Months Allergies Active Allergy Reactions Criticality Noted Date [...] 023 Assessment & Plan (09/17/2023 3:59 PM THERMOSTAT MACHINE TENDER): Impression: Patient complains of numbness to bilateral [...] degeneration Insomnia 09/30/2012 Overview (02/14/2017): Insomnia Immunizations Immunization Administration Dates Next Due Influenza, Quadrivalent, Spl it, Preservative Free, Intramuscular 08/02/2020 Influenza, Split 08/25/2013 Pfizer SARS-CoV-2 Monovalent Vaccination (12+ Yrs) PURPLE 11/27/2021,03/24/2021,02/20/2021 Tdap 1965 Social History Tobacco Use Types Packs/Day Years [...] on file Legal Sex Female 11:00 AM THERMOSTAT MACHINE TENDER Gender Identity Female 01/24/2025 4:27 PM CDT Sexual Orientation Choose not to disclose 2024 4:27 PM CDT Last Filed Vital Signs Vital Sign Reading [...] 01/27/2025 1:57 PM CDT Plan of Treatment Not on file Goals [...] POST VOID RESIDUAL Routine 01/06/2025 1:47 PM THERMOSTAT MACHINE TENDER Mixed stress and urge incontinence from Last [...] HPV HR 16 Not Detected Not Detected [facility] Comment:Testing performed by : [facility], [address] [facility] [place]., [address] HPV HR 18 Not Detected Not Detected [facility] Comment:Testing performed by : [facility], [address] [place]., [address] HPV HR Non 16/18 Not Detected Not [...] this test have been verified by the [facility] Molecular Infectious Disease laboratory. Correlate with separately reported cytology results, as applicable. Interpretive data last revised 23 Testing performed by: [facility], [address] [place]., [address] Endocervical 01/27/2025 3:08 PM CDT 01/28/2025 12:44 PM CDT Amberly BLANCO CH - 01/29/2025 2:57 AM CDT Clinical history and diagnosis->Liquid-based PAP test with high risk HPV test- Z12.4 Number of vials->1 Testing type->Screening Last menstrual period (date if known)->N/A Menstrual status->Postmenopausal Contraceptive use->None Miranda Hutson DO LAB BODY FLUIDS AND STO OLS ORDERABLES Final Result [facility] [address] Department [place] [address] [facility] * Pap and High Risk HPV and Genotyping (Cytology Component) (01/27/2025 10:10 AM CDT) Thin prep (Pap test) 01/27/2025 10:10 AM CDT 01/27/2025 10:10 AM CDT Narrative PATHOLOGY CH - 01/31/2025 12:24 PM CDT [facility] Department of Pathology [address] [place], [place] [id number] Final Report with Addendum Note to Patients: [...] the details. Patient Name: NASREEN GODFREY Address: [address] [place] [address] Gender: F : 1965 (Age: 59) Service: Location: N : [id number] [facility] #: [id number] Patient Type: [facility] SPECIMEN Taken: 01/27/2025 Received: 01/27/2025 Accessioned:: [...] this test have been verified by the [facility] Molecular Infectious Disease laboratory. Correlate with reported [...] determined by the Surgical Pathology Department at [facility] as part of an ongoing quality facilitator program and in compliance with federally mandated [...] characteristics determined by the Surgical Pathology Department [facility]. It has not been cleared or approved by the U. S. Food and Drug Administration. Miranda Hutson DO LAB CYTOLOGY ORDERABLES Final Result PATHOLOGY [address] [place] [address] * Measure post void residual (01/06/2025 1:47 PM THERMOSTAT MACHINE TENDER) Eloise Cortés LPN - 01/06/2025 1:47 PM THERMOSTAT MACHINE TENDER Measurement of post-voiding residual urine and/or bladder capacity by ultrasound, non-imaging. PVR = 29 mL us Avani Quinn CLINICAL PROFESSOR NURSING ASSESSMENTS Final Res ult from Last 3 Months Insurance [facility] Care Teams Pocket Creaser Relationship Specialty Start Date End Date Leidy Chapa NP [address] [place] [address] PCP - General Nurse Practitioner 09/09/23
--- OUTSIDE RECORDS SUMMARY | 2025-03-01 17:29 | XMS_ITS | Encounter Summary ---
Author Organization [facility] Address [address] [facility] [place] [address] Phone Care Team Providers Care Security Project Manager Name Role Phone Provider, Not On File Primary Care Provider Unav ailable Reason for Visit * Reason Comments Medication Refill Encounter Details Date Type Department Care Team ([facility] st Contact Info) Description 12/04/2022 Refill [facility] - Gastroenterology [facility] [address] [place] [address] Mirella Quintanilla Sarai, PAC [address] [place] [address] Medication Refill Social History Tobacco Use Types [...] 2 Capsules by mouth daily. Last fill: 10/14/21 Patients last OV with GI: 08/08/21 Next Office Visit with GI: N/a Refill refused. Patient needs appointment. Attempt to call patient. Left voicemail. UCTION WORKER documented in this encounter Plan of Treatment Not on file documented as of this encounter Visit Diagnoses Not on filedocumented in this encounter Care Teams Security Project Manager Relationship Specialty Start Date End Date Provider, Not On File [place] PCP - General 08/22/21 documented as of this encounter
--- OUTSIDE RECORDS SUMMARY | 2025-03-01 17:29 | XMS_ITS | Encounter Summary ---
Author Organization [facility] Address [address] [place] [address] Care Team Providers Care Mold Technician Name Role Phone Iain Banegas MD Primary Care Provider [phone] Leidy Chapa NP Primary Care Provider [phone] Encounter Details Date Type Department Care Team (Late st Contact Info) Description 04/11/2022 Telephone [facility] [address] [facility] [address] [place] [address] Anu Gong MD [address] [facility] [address] [place] [address] Social History Tobacco Use Types Packs/Day Years [...] on file Legal Sex Female 11:00 AM STIFF LEG DERRICK OPERATOR Gender Identity Female 01/24/2025 4:27 PM CDT Sexual Orientation Choose not to disclose 2024 4:27 PM CDT documented as of this encounter Plan of [...] on filedocumented in this encounter Care Teams Mold Technician Relationship Specialty Start Date End Date Iain Banegas MD [address] [address] PCP - General 09/13/19 09/08/23 Leidy Chapa NP [address] [address] PCP - General Nurse Practitioner 09/09/23 documented as of this encounter
--- OUTSIDE RECORDS SUMMARY | 2025-03-01 17:29 | XMS_ITS | Encounter Summary ---
Author Organization [facility] Address [address] [place] [address] Care Team Providers Care Customer Greeter Name Role Phone Iain Banegas MD Primary Care Provider [phone] Leidy Chapa NP Primary Care Provider [phone] Encounter Details Date Type Department Care Team (Late st Contact Info) Description 08/07/2021 Telephone [place] [address] [facility] [address] [place] [address] Nery Myles, KAUR Social History [...] on file Legal Sex Female 11:00 AM PACKAGING CLERK Gender Identity Female 01/24/2025 4:27 PM CDT Sexual Orientation Choose not to disclose 2024 4:27 PM CDT documented as of this encounter Functional Status documented as of this encounter Miscellaneous Notes * Pre-Procedure Instructions - Nery Myles, KAUR - 08/07/2021 11:49 AM CDT Patient received [...] on filedocumented in this encounter Care Teams Customer Greeter Relationship Specialty Start Date End Date Iain Banegas MD [address] [place] [address] PCP - General 09/13/19 09/08/23 Leidy Chapa NP [address] [place] [address] PCP - General Nurse Practitioner 09/09/23 documented as of this encounter
== END 2025-03-01 15:20 | disposition home or self-care (01) ==
LOC: ANHLAB 15:22
PROVIDERS: PCP Nurse Practitioner Family; Visit Provider Nurse Practitioner Family
DX: I73.00 Raynaud's syndrome without gangrene (principal); K21.9 Gastro-esophageal reflux disease without esophagitis; R31.9 Hematuria, unspecified; E61.1 Iron deficiency; M25.50 Pain in unspecified joint; M54.12 Radiculopathy, cervical region; R53.83 Other fatigue; R73.01 Impaired fasting glucose
CPT/HCPCS: 36415; 80053; 80061; 82728; 83036; 83540; 83550; 84439; 84443; 84481; 85025

== ENCOUNTER 2025-08-11 13:17 | Outpatient (CLI) | payer OTHER, SELFPAY ==
--- OUTSIDE RECORDS SUMMARY | 2009-08-28 05:00 | XMS_ITS | Continuity of Care Document ---
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 [facility] [address], [place], [place], [id number], [place]. tel:[phone] Family History Family Member Type Diagnosis Age At Onset No Information Payers Payer name Insurance type Covered democrat ID Authoriza tikaren(s) [employer] CI [id number] Social History Type Description Quantity Date Captured Comments Sex Female Smoking Status No Information Chief Complaint And Reason For Visit No Information Reason For Referral Reason For Referral No Information History Of Present Illness Encounter Date Complaint History Of Prese nt Illness No Information Functional Status Date Functional Assessmen t No Information Instructions Date Instruction Additional Infor mation No Information Assessments Type Assessment Date No Information Patient Care Teams Name Effective Dates (start - stop) Status Members No Information
--- NOTE | ~2025-08-11 | XR_ITS ---
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 COMPARISON: No comparisons available. Findings: No acute fracture or malalignment. No significant degenerative changes. Soft tissues unremarkable. Impression: No acute fracture or malalignment. Reviewed, dictated and finalized at location P. Impression: No acute fracture or malalignment.
--- NOTE | ~2025-08-11 | XR_ITS ---
XR lumbar spine 6V w bending Indication: M47.816 - Spondylosis without myelopathy or radiculopathy... Comparison: None Findings: Moderate loss of vertebral height throughout. No fracture, no subluxation flexion and extension. Moderate to severe loss of disc height throughout. Soft tissues unremarkable Impression: No acute abnormality. Reviewed, dictated and finalized at location P. Impression: No acute abnormality.
--- NOTE | ~2025-08-11 | XR_ITS ---
Clinical history:Spondylosis EXAM:X-ray cervical spine minimum 60s TECHNIQUE:8 images of the cervical spine were obtained Comparisons:None available FINDINGS: There is reversal of the normal cervical lordosis centered at the C5 level. Moderate intervertebral disc space narrowing at the C3-C4, C4-C5, C5-C6 and C6- C7 levels. No compression fracture in the cervical spine. Predental space is within normal limits. Mild to moderate degenerative change throughout the cervical facet joints and uncovertebral joints. No abnormal subluxation with flexion or extension. Lateral dental intervals are within normal limits. IMPRESSION: 1.There is reversal of the normal cervical lordosis centered at the C5 level. 2.Moderate intervertebral disc space narrowing at the C3-C4, C4-C5, C5-C6 and C6-C7 levels. 3.No compression fracture in the cervical spine. If symptoms persist or worsen, consider a CT or MRI of the cervical spine for further assessment. Reviewed, dictated and finalized at location Q. IMPRESSION: 1.There is reversal of the normal cervical lordosis centered at the C5 level. 2.Moderate intervertebral disc space narrowing at the C3-C4, C4-C5, C5-C6 and C 6-C7 levels. 3.No compression fracture in the cervical spine. If symptoms persist or worsen, consider a CT or MRI of the cervical spine for f urther assessment.
--- OUTSIDE RECORDS SUMMARY | 2025-08-11 13:23 | XMS_ITS | Encounter Summary ---
Author Organization [facility] Address [address] [place] [place] [address] Phone Care Team Providers Care Bargeman Name Role Phone Provider, Not On File Primary Care Provider Unav ailable Reason for Visit * Reason Comments Medication Refill Encounter Details Date Type Department Care Team ([facility] st Contact Info) Description 12/04/2022 Refill [facility] [address] [place] [address] Mirella Quintanilla Sarai, PAC [address] [place] [address] Medication Refill Social History Tobacco Use Types [...] appointment. Attempt to call patient. Left voicemail. ORKING TECHNOLOGY INSTRUCTOR documented in this encounter Plan of Treatment Not on file documented as of this encounter Visit Diagnoses Not on filedocumented in this encounter Care Teams Bargeman Relationship Specialty Start Date End Date Provider, Not On File [place] PCP - General 08/22/21 documented as of this encounter
--- OUTSIDE RECORDS SUMMARY | 2025-08-11 13:23 | XMS_ITS | Clinical Summary ---
Author Organization [facility] Address [address] [address] Phone Care Team Providers Care College Coach Name Role Phone Leidy Chapa NP Primary Care Provider [phone] Allergies Active Allergy Reactions Criticality Noted Date [...] min. 12 tablet 3 5 026 Active solifenacin (VESIcare) 10 mg tabletIndication s:Mixed stress and urge incontinence TAKE 1 TABLET(10 MG) BY MOUTH DAILY 30 tablet 1 5 Active Active Problems Problem Noted Date Diagnosed Date Pruritus of vagina 01/27/2025 Perimenopausal disorder 01/27/2025 Pain of cervical spine 01/27/2025 Cataract 01/27/2025 Candidal vulvovaginitis 01/27/2025 Calcification of breast 01/27/2025 Peripheral vascular disease, unspecified 023 Assessment & Plan (09/17/2023 3:59 PM HELP DESK ASSISTANT): Impression: Patient complains of numbness to bilateral [...] Encounters Date Type Department Care Team Description 07/12/2025 Orders Only [facility] ([facility] - [facility] Medicine Urology [address] [place] [address] [place] [address] Avani Quinn, AGRICULTURIST 06/07/2025 Orders Only [facility] Medicine Surgery [address] [place] [address] Avani Quinn, AGRICULTURIST from Last 3 Months Immunizations Immunization Administration [...] on file Legal Sex 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 Gender Identity Female 01/24/2025 4:27 PM CDT [...] 1:57 PM CDT Height 154.9 cm (5' 1) 01/27/2025 1:57 PM CDT Body Mass Index 20.22 01/27/2025 1:57 PM CDT Plan of Treatment Health Maintenance Due Date Last Done Comments Colon Cancer Screening-Colonoscopy 1965 Hepatitis C Screening 1965 DTaP/Tdap/Td Vaccine (1 - Tdap) 1975 1964 Hepatitis B Screening 1982 Zoster Vaccine (1 of 2) 2014 Depression Screening 09/09/2024 09/09/2023, 08/03/2021, 07/28/2020 Covid-19 Vaccine (2024- season) 2025 11/27/2021, 03/24/2021, 02/20/2021 Influenza Vaccine (#1) 2025 08/02/2020, 2012 Cervical Cancer Screening 01/27/20262024, 01/27/2025, 08/19/2022, Additional [...] CDT Screening for malignant neoplasm of cervix from Last 3 Months or Most Recently Relevant to Health Maintenance Results * Screening Mammogram Bilateral W Horcae (02/15/2025 2:08 PM CDT) Anatomical Region Laterality [...] been no suspicious interval change. us Miranda Jennifer Caryl DO IMG MAMMO PROCEDURES Fi nal Result * High Risk HPV DNA Detection with Genotyping (Molecular component) (01/27/2025 3:08 PM CDT) HPV HR 16 Not Detected Not Detected [facility] Comment:Testing performed by : [facility] [place]., [address] HPV HR 18 Not Detected Not Detected [facility] Comment:Testing performed by : [facility], [address] [place]., [address] HPV HR Non 16/18 Not Detected Not Detected [facility] Comment: Interpretive Data Nucleic acid amplification for [...] this test have been verified by the [facility] Molecular Infectious Disease laboratory. Correlate with separately reported cytology results, as applicable. Interpretive data last revised 23 Testing performed by: [facility], [address] [place]., [address] Endocervical 01/27/2025 3:08 PM CDT 01/28/2025 12:44 PM CDT [facility] - 01/29/2025 2:57 AM CDT Clinical history and diagnosis->Liquid-based PAP test with high risk HPV test- Z12.4 Number of vials->1 Testing type->Screening Last menstrual period (date if known)->N/A Menstrual status->Postmenopausal Contraceptive use->None Miranda Hutson DO LAB BODY FLUIDS AND STO OLS ORDERABLES Final Result [facility] [address] [place] [address] BJ from Last 3 Months or Most Recently Relevant to Health Maintenance Insurance [facility] Care Teams College Coach Relationship Specialty Start Date End Date Leidy Chapa NP [address] [place] [address] PCP - General Nurse Practitioner 09/09/23
--- OUTSIDE RECORDS SUMMARY | 2025-08-11 13:23 | XMS_ITS | Encounter Summary ---
Author Organization [facility] Address [address] [place] [address] Care Team Providers Care Tax Manager Cpa Name Role Phone Iain Banegas MD Primary Care Provider [phone] Leidy Chapa NP Primary Care Provider [phone] Encounter Details Date Type Department Care Team (Late st Contact Info) Description 04/11/2022 Telephone [facility] [address] 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
--- OUTSIDE RECORDS SUMMARY | 2025-08-11 13:23 | XMS_ITS | Clinical Summary ---
Author Organization [facility] Address [address] [place] [address] Care Team Providers Care Lang Path Therapist Name Role Phone Olga Sylvester APRN-CATCH BASIN CLEANER Primary Care Provider Samuel Ayers DO Unavailable [phone] Source Comments [facility],non-owned Affiliates and Associated Physician Practices is amultiple site organization consisting of ambulatory clinics and hospital sitesin [place], [place], [place] and [place]. This disclosure is being madepursuant to the Care Everywhere program and may not contain all information available regarding this patient. Last updated 18.[facility] Allergies Active Allergy Reactions Criticality Noted Date Comments Aspirin Nausea and/or Vomiting 03/11/2025 Reaction: Nausea, Vomiting, , Latex Itching,Rash,Swelling Medium 01/19/2020 Naproxen Unknown 03/11/2025 Medications * Be aware that medications may not be up to date on this document. Alwaysverify current medications with the patient. Norgestim-Eth Estrad Triphasic (ORTHO TRI-CYCLEN, 28, PO) Active Multiple Vitamin (MULTI VITAMIN PO) A ctive Ascorbic Acid (VITAMIN C ER PO) Ac tive Active Problems Problem Noted Date Diagnosed Date Calcification of breast 01/27/2025 Candidal vulvovaginitis 01/27/2025 Cataract 01/27/2025 Pain of cervical spine 01/27/2025 Perimenopausal disorder 01/27/2025 Pruritus of vagina 01/27/2025 Peripheral vascular disease, unspecified 023 Chondromalacia of right patella 12/02/2022 Radial tear of lateral meniscus 12/02/2022 Osteoarthritis of right knee 08/26/2022 Contact dermatitis 08/05/2022 Eczema 07/04/2022 Plantar fasciitis of right foot 05/31/2022 Foot pain 05/30/2022 Macular degeneration 08/25/2013 Overview (03/11/2025): Macular degeneration Insomnia 09/30/2012 Overview (03/11/2025): Insomnia Immunizations Immunization Administration Dates Next Due INFLUENZA VACCINE 08/25/2013 INFLUENZA VACCINE, QUADR. (F LUZONE; FLULAVAL; FLUARIX; AFLURIA QUADRIVALENT; 6MO+), 0.5 ML (IIV4) 08/02/2020 TDAP (7yrs+) 1965 Social History Tobacco Use Types Packs/Day [...] Comments Blood Pressure 118/74 12/12/2018 11:42 AM COIL WINDER HAND Pulse 64 12/12/2018 11:42 AM COIL WINDER HAND Temperature 36.8 C (98.2 F) 12/12/2018 11:42 AM COIL WINDER HAND Respiratory Rate 16 12/12/2018 11:42 AM COIL WINDER HAND Oxygen Saturation 97% 12/12/2018 11:42 AM COIL WINDER HAND Inhaled Oxygen Concentration - - Weight 49.9 kg (110 lb) 12/12/2018 11:42 AM COIL WINDER HAND Height 154.9 cm (5' 1) 12/12/2018 11:42 AM COIL WINDER HAND Body Mass Index 20.78 12/12/2018 11:42 AM COIL WINDER HAND Plan of Treatment Health Maintenance Due Date Last Done Comments COLOGUARD (AGES 45-75) - COLON CA SCREENING 1964 COLON MONITORING 1964 COLONOSCOPY - COLON CA SCREENING 1964 CT COLONOGRAPHY - COLON CA SCREENING 1964 Colorectal Cancer Screening 1964 FIT - COLON CA SCREENING 1964 FLEX SIG - COLON CA SCREENING 1964 LIPID TESTING 1964 HIV SCREENING 1979 HEPATITIS C SCREENING 07/31/1982 DTAP/TDAP/TD VACCINES (1 - Tdap) 1983 1964 PAP with HPV 1994 PNEUMOCOCCAL VACCINE 50+ (1 of 1 - PCV) 2014 ZOSTER VACCINE (1 of 2) 2014 Respiratory Syncytial Virus (RSV) Vaccine Pt: or over 60 yrs (1 - Risk 60-74 years 1-dose series) 2024 DEPRESSION SCREENING 11/10/2024 COVID-19 VACCINE ( - 2024- season) 2025 11/27/2021, 03/24/2021, 02/20/2021 INFLUENZA VACCINE (#1) 2025 08/02/2020, 2012 MAMMOGRAM 02/15/2027 02/15/2025, 06/2025, 02/11/2024, Additional history exists HEPATITIS B VACCINE Aged Out No longe r eligible based on patient's age to complete this topic HIB VACCINE Aged Out No longer eligi ble based on patient's age to complete this topic HPV VACCINE Aged Out No longer eligi ble based on patient's age to complete this topic MENINGOCOCCAL (Group B) VACCINE SHARED DECISION-MAKING Aged Out No longer eligible based on patient's age to complete this topic MENINGOCOCCAL GROUPS A/C/Y/W VACCINE Aged Out No longer eligible based on patient's age to complete this topic Insurance [facility] Care Teams Lang Path Therapist Relationship Specialty Start Date End Date Olga Sylvester APRN-CATCH BASIN CLEANER [address] [place] [phone] PCP - General 07/23/21 Samuel Ayers DO [address] [place] [phone] Internal Medicine 07/23/21
--- OUTSIDE RECORDS SUMMARY | 2025-08-11 13:23 | XMS_ITS | Data Portability ---
Author Organization [facility] Address [address] [place] [address] Assessment No assessment recorded. Plan of Treatment Reminders Order Date Submit Date Provider Last Modified By Organization Details Last Modified Time Details Appointments None recorded. Lab pap, IG + HPV, cervical 2015 016 [facility], [address] [place] [address], [address], [place], [address], 6 04:29:14 pap, IG + HR HPV 2014 015 [facility], [address] [place] [address], [address], [place], [address], 5 17:23:31 bacterial vaginosis + vaginitis panel, vaginal 2014 015 [facility], [address] [place] [address], [address], [place], [address], 5 14:49:34 Referral None recorded. Procedures None recorded. Surgeries None recorded. Imaging x-ray, chest, 2 view - A/P, lateral... .cough for 2 months. 2015 Vinnie oakley 1 Not available 6 15:07:41 mammogram, screening 2014 015 [facility] ([facility] [address] [place], [address], 5 18:35:01 Medication Orders TriNessa (28) 0.18 mg(7)/0.21 5 mg(7)/0.25 mg(7)-35 mcg tablet 2014 015 [email or web address] [facility], [address], [place], [id number], 6 10:55:02 Diflucan 150 mg tablet [email or web address] [place] [address] [facility], [address], [place], [id number], 6 10:55:02 Loestrin Fe 11/29 (28-Day) 1 mg-20 mcg (21)/75 mg (7) tablet 2014 [facility], [address], [place], [id number], 5 09:16:21 Patient TargetsNo targets recorded. Patient Instructions Encounter Date Encounter Id Patient Instructions Last Modified By Organization Details Last Modified Time 03/14/2015 [id number] temporomandibula r disorder: care instructions [email or web address] Not available 03/14/2015 15:37:53 03/29/2015 [id number] learning about b irth control: combination pills [email or web address] Not available 03/29/2015 18:07:40 To take oc's manuel e time daily. Repeat mammogram negative. To make apt for annual 08/24. mpass Not available 03/29/2015 12:39:10 Wants to start O C's to help with acne. mpass Not available 03/29/2015 12:39:10 08/22/2015 [id number] To get mammogram next month. mpass Not available 08/22/2015 09:35:15 Pt. very happy t hat Tri-morris has cleared up her facial acne. Wants to continue. Must keep up with mammograms to continue. mpass Not available 08/22/2015 09:35:15 01/05/2016 [id number] cough: care instructions [email or web address] Not available 01/05/2016 13:48:18 08/26/[id number] [address] Biopsy: About This Test Not available 08/26/2016 14:42:58 Will stop OC's. Gave pt. list of derms for facial acne. Not available 08/26/2016 14:42:59 Reason for Referral None Reported. Results Created Date Observation Date Name Description Value Unit Range Abnormal Flag Note LastModifiedBy Organization Detail LastModifiedTime 08/26/20 16 08/28/2016 pap, IG + HPV, cervi yari diagnosis: JALLI Solano NEGAT TIKA FOR INTRA EPITH ELIAL CAIT Peck AND SHARMIN LOPEZ . Not Available [facility] ([facility]) [address] [place], [address], 08/29/2016 11:16:54 08/26/20 16 08/28/2016 pap, IG + HPV, cervi yari specimen adequacy: JALIL Solano SATIS FACTO RY FOR EVALU ATION . ENDOC ERVIC AL AND/O R SQUAM OUS METAP LASTI C CELLS (ENDO CERVI YARI COMPO NENT) ARE PRESE NT. Not Available [facility] ([facility]) [address] [place], [address], 08/29/2016 11:16:54 08/26/20 16 08/28/2016 pap, IG + HPV, cervi yari clinician provided ICD10: JALIL Solano Z01.4 19 Not Available [facility] ([facility]) [address] [place], [address], 08/29/2016 11:16:54 08/26/20 16 08/28/2016 pap, IG + HPV, cervi yari performed by: JALIL Rojas, CYTOT ROSLYN Solano (ASCP ) Not Available [facility] ([facility]) [address] [place], [address], 08/29/2016 11:16:54 08/26/20 16 08/28/2016 pap, IG + HPV, cervi yari . . Not Available [facility] ([facility]) [address] [place], [address], 08/29/2016 11:16:54 08/26/20 16 08/28/2016 pap, IG [...] TS DO OCCUR . Not Available [facility] ([facility]) [address] [facility], [place], [address], 08/29/2016 11:16:54 08/26/20 16 08/28/2016 pap, IG + HPV, cervi yari test methodology: COMMEN T THIS LIQUI D BASED THINP REP(R ) PAP TEST WAS SCREE CLAIR WITH THE USE OF AN IMAGE GUIDE Joseph Ledezma. Not Available [facility] ([facility]) [address] [facility], [place], [address], 08/29/2016 11:16:54 08/26/20 16 08/29/2016 pap, IG + HPV, cervi yari HPV aptima NEGATI VE negati ve THIS TEST DETEC TS FOURT EEN HIGH- RISK HPV TYPES (16/1 8/31/ 33/35 /39/4 5/ 51/52 /56/5 8/59/ 66/68 ) WITHO UT DIFFE RENTI ATION . Not Available [facility] ([facility]) [address] [facility], [place], [address], 08/29/2016 11:16:54 03/09/20 15 09/16/2014 imagi ng/di agnos tic resul t No observ ation record ed. mpass [facility] [address] [place], [address], 03/13/2015 11:29:39 03/22/20 15 03/21/2015 MAMMO , diagn ostic , digit al, unila teral No observ ation record ed. mpass [facility]) Scheduling [address] [place], [address], 03/27/2015 11:25:11 03/31/20 15 03/31/2015 imagi ng/di agnos tic resul t No observ ation record ed. dbogue [facility] ([facility]) Scheduling [address] [place], [address], 01/05/2016 10:56:11 11/01/20 15 10/31/2015 mammo gram, scree jennifer No observ ation record ed. [address], [address], 08/26/2016 09:55:49 11/01/20 15 10/31/2015 mammo gram, scree jennifer No observ ation record ed. [address], [address], 08/26/2016 09:55:49 11/02/20 15 10/31/2015 mammo gram, scree jennifer No observ ation record ed. [facility]) Scheduling [address] [place], [address], 08/26/2016 09:55:49 11/07/20 15 10/31/2015 mammo gram, scree jennifer No observ ation record ed. mpass Not Available 2015 09:55:49 11/22/19 16 09/16/2014 imagi ng/di agnos tic resul t No observ ation record ed. mpass Not Available 2015 09:55:50 01/05/20 16 01/05/2016 x-ray , chest , 2 view No observ ation record ed. [facility] [address] [place], [address], 08/26/2016 09:55:50 01/05/20 16 x-ray , chest , 2 view No observ ation record ed. [facility] Salazar Oakes MD [address], [place], [address], 08/26/2016 09:55:50 01/06/20 16 01/05/2016 MAMMO , diagn ostic , digit al, unila teral No observ ation record ed. [facility] Not Available 2015 09:55:50 01/06/20 16 01/05/2016 MAMMO , diagn ostic , digit al, unila teral No observ ation record ed. [facility] Not Available 2015 09:55:50 07/23/20 16 07/22/2016 MAMMO , diagn ostic , digit al, unila teral No observ ation record ed. mpass Not Available 2015 09:55:50 Result Notes None recorded. Problems Name Problem SNOMED Code Status Onset Date Resolution Date Notes Provider Name and Address Organization Details Recorded Time Degenerative disorder of macula 991570034 Active Olga cisneros, [facility] 5 09:56:18 Cataract 966133808 Active Olga cisneros, [facility] 5 09:56:18 Degeneration of intervertebra l disc 76852824 Active Olga cisneros [facility] 5 09:56:18 Perimenopausa l disorder 173477253 Active Ayana López [facility] Attn: Accounting ,[address] [place], [address] , [facility] - [facility] 5 12:35:46 Candidal vulvovaginiti s 48794139 Active Ayana López [facility] Attn: Accounting ,[address] [place], [address] , [facility] 5 12:35:46 Temporomandib ular joint disorder 12984939 Active Olga Sylvester [place], [place] - [facility] 5 15:37:53 Calcification of breast 296998425 Active Kellen Craig [place] null, [place] - [facility] 5 16:48:21 Pruritus of vagina 06430127 Active Ayana López [facility] Attn: Accounting ,[address] [facility], [place], [address] , [place] - [facility] 5 09:35:15 Acne 89825805 Active Ayana López [facility] Attn: Accounting ,[address] [facility], [place], [address] , [place] - [facility] 5 09:35:15 Neck pain 76108339 Active Jean Paul Graves [place], [place] [facility] 4 09:51:20 Backache 437566934 Active Olga Syl[place] [facility] 5 09:37:06 Pain in cervical spine 999117756 Active Olga Syl[place] [facility] 5 13:54:14 Mammography abnormal 225091098 Active Minoo Ordonez [place] [facility] 6 14:42:58 Cough 88580176 Active Olga Sylvester [place] [facility] 6 11:22:11 Problem Notes None recorded. Procedures Surgical History Date Name Laterality Status Provider Name and Address Organization Details Recorded Time 5 Date of Last Pap Smear completed Ivy Nobles [place] - [facility] 08/22/2015 09:16:20 4 Most Recent Mammogram completed Court R[address] [place] - [facility] 01/16/2015 11:03:21 3 Eye Surgery completed Jean Paul Graves [place] - [facility] 10/24/2014 09:51:21 Imaging Results None recorded. Procedure Notes None recorded. Medical Equipment None Reported. Allergies Allergen ID Allergen Name Allergen Category Reaction Reaction Severity Criticality Documentation Date Start Date Code Code System Note Provider Name and Address Organization Details Recorded Time 8720 aspirin medicatio n vomiting moderate Not available 10/24/2014 1191 RxNorm Jean Paul Graves MA null, [place] - [facility] 4 09:51:21 Medications Name Sig Start Date Stop Date [...] with needle 1 mL 31 gauge x / active Not Available Not Available Not Available [...] Not Available Vitals Date Recorded Body height Oxygen saturation Oxygen saturation in Arterial blood by Pulse oximetry Body temperature Body mass index (BMI) Heart rate Body weight Systolic And Diastolic Provider Name and Address Organization Details Last Updated DateTime 6 154.94 cm 100 % 100 % 97.7 [degF] 20.3 kg/m2 72 /min 08307.1 14716 g 90/50 mm[Hg] Jean Paul Graves [place] - [facility] 6 10:55:01 Date Recorded Oxygen saturation Oxygen saturation in Arterial blood by Pulse oximetry Body weight Body temperature Heart rate Body mass index (BMI) Body height Systolic And Diastolic Provider Name and Address Organization Details Last Updated DateTime 5 97 % 97 % 04356.0 1411 g 98 [degF] 75 /min 19.5 kg/m2 154.94 cm 98/60 mm[Hg] Jean Paul Graves MA [facility] 5 15:14:55 Date Recorded Body height Body mass index (BMI) Body weight Systolic And Diastolic Provider Name and Address Organization Details Last Updated DateTime 03/29/2015 154.94 cm 19.8 kg/m2 28477.198 85 g 94/58 mm[Hg] Jasmin Rome LPN [facility] 03/29/2015 12:13:24 Date Recorded Body height Body mass index (BMI) Body weight Systolic And Diastolic Provider Name and Address Organization Details Last Updated DateTime 08/22/2015 154.94 cm 19.7 kg/m2 66099.606 48 g 120/80 mm[Hg] Ivy Nobles [facility] 08/22/2015 09:16:20 Date Recorded Body height Body weight Body mass index (BMI) Systolic And Diastolic Provider Name and Address Organization Details Last Updated DateTime 08/26/2016 154.94 cm 53210.79 g 20 kg/m2 112/78 mm[Hg] Minoo Ordonez [facility] 08/26/2016 09:20:12 Social History Question Answer Notes LastModified by Organizat ion Details LastModified Time Tobacco Smoking Status Never Smoker Jean Paul Graves MA null, [facility] 10/24/2014 09:51:21 What Is Your Level Of Caffeine Consumption? Occasional Soda, Tea [email or web address] Information not available 10/24/2014 What Type Of Diet Are You Following? REGULAR [email or web address] Information not available 10/24/2014 How Many Children Do You Have? 1 [email or web address] Information not available 01/16/2015 General Stress Level High [email or web address] Information not available 10/24/2014 Sex: Unknown Functional Status Question Answer Note LastModified by Organization D etails LastModified Time What is your level of alcohol consumption? None [email or web address] Information not available 10/24/2014 What is your exercise level? None [email or web address] Information not available 10/24/2014 Mental Status None recorded. Family History Relationship Description Onset Age of this Age Resolved Age Notes LastModified by Organization Details LastModified Time Father Hypertensive disorder [email or web address] Not available 2014 09:16:20 Mother Diabetes mellitus [...] Disorder N Colon Polyps N Heart Attack (CO) N Diabetes N Cardiomyopathy N Blood Transfusions [...] Diagnosis SNOMED-CT Code Diagnosis ICD10 Code Diagnosis IMO Codes Diagnosis Note [id number] MD James Livingston (Adult Med) [address] [place] [address] 10/24/2014 09:34:40 10/24/2014 12:07:43 Pain in cervical spine 817510389 NSAIDs prn. Heat/ice as needed. Ok to continue muscle rubs. Patient has not been to PT yet. MA to set up PT today. Due to patient complaint of 'grinding in neck' suspect arthritis. [id number] MD James Livingston (Adult Med) [address] [place] [address] 12/06/2014 08:43:51 12/06/2014 11:53:09 Degenerative disorder of macula 201662093 Patient seeing program management specialist , patient is unsure of name. Cataract 861624912 Seeing program management specialist . Degenerati on of intervertebral disc 49964060 xray lumbar showed multilevel degenerati ve disc disease and cervical xray moderate , Thoracic minimal, and Lumbar minimal' . No [id number] MD Colt Sesay ([place] [address]) [address] [facility] [place] [address] 01/16/2015 10:54:48 01/16/2015 11:32:14 Perimenopausal disorder 175713660 Candidal vulvovaginitis 39736262 [id number] Olga Sylvester [facility] (Adult Med) [address] [place] [address] 03/14/2015 15:01:08 03/14/2015 16:20:33 Temporomandibular joint disorder 95868285 Patient to follow up with her dentist. Can use NSAIDs prn otc. Avoid chewing gum, or making repeatitiv e jaw motions. [id number] Ayana López [facility] Colt Ingram ([place] [address]) [address] [place] [address] 03/29/2015 12:04:41 03/29/2015 14:22:22 Uses oral contraception 2808968 103495 Ayana López [facility] Colt Ingram ([place] [address]) [address] [place] [address] 08/22/2015 09:05:41 08/22/2015 10:48:16 Screening mammography 95937896 Z12.31 Gynecologi c examination 72405036 Z01.419 Pruritus of vagina 02778 003 L29.3 Acne 55160822 L70.9 [id number] Olga Sylvester [facility] (Adult Med) [address] [place] [address] 01/05/2016 10:43:55 01/08/2016 15:07:41 Cough 64647119 R05 Will get chest xray- aspiration ? bronchitis ? Has been on zpak, albuterol, mucinex, robitussin , medrol dose david- all without much relief. Encouraged patient to try zyrtec daily for 2 weeks to see if possible allergen cause, although no post pharynx drainage or edematous turbinates noted on exam. [id number] Ayana López [facility] ([address]) [address] [facility] [address] [place] [address] 08/26/2016 09:01:34 08/26/2016 13:13:24 Gynecologic examination 04439067 Z01.419 Mammography abnormal 168 912670 R92.8 Screening mammography 24 196826 Z12.31 Health Concerns Section Related Observation LastModified by Organization Detai ls LastModified Time None Recorded Concern Status LastModified by Organization Details LastModified Time None Recorded Advance Directives Directive None Recorded Payers Insurance Date Sequence Insurance Name Policy Number Policy De Guzman Covered Member ID De Guzman Member ID Guarantor Name 08/18/2015 1 [place] [employer] Nasreen Santoscarolinealida [id number] Nasreenjose Contreras 12/16/2017 1 [facility] PRIOR TO 05/10/2021 (MEDICAID REPLACEMENT - HMO) Nasreen Danielleermelinda [id number] Nasreen Danielleermelinda Notes Date Note Type Note Provider Name and Address Organization Details Recorded Time 5 text/html Has noticed jaw pain bilaterally the last week. Can reproduce pain when opening jaw widely and feels like jaw pops out of place. Unsure cause. Did have dental work done and had her mouth open a long time for it. Olga Sylvester [place], [place] [facility] 03/14/2015 15:39:29 5 text/html Annual GYNReported by PatientGenitourinary symptomsFor menstrual cycle, patient reportsnormal menses. For urinary symptoms, patient reportsno hematuriaandno incontinence. For vulva, patient reportsno genital lesion. For vagina, patient reportsnormal vaginal discharge.Breast symptomsFor breast, patient reportsno breast pain,no breast lump, andno nipple discharge.ContraceptionFo r current contraception, patient reportssatisfied with current contraceptionandoral contraceptives.Endocrine symptomsFor sexual complaints, patient reportsno sexual complaints,no pain during intercourse, andnormal libido. For menopausal symptoms, patient reportsno menopausal symptomsandnormal vaginal lubrication.Psychological symptomsFor psychological symptoms, patient reportsno depression,no anxiety, andno pmdd.Preventative measuresFor preventive measures, patient reportsencourage self breast examination,encourage regular exercise,encourage no tobacco use,encourage regular mammograms starting age 40,followed with q3 year pap smear and high risk hpv typing,mammogram performed within the past year, andup to date on colonoscopy screening.Had colonoscopy this year. Negative. Ayana López [facility] Attn: Accounting,[address] [facility], [place], [address], [place] [facility] 08/22/2015 09:35:24 6 text/html CoughReported by PatientHPIFor severity, patient reportspain with cough (intermittent). For duration, patient reportssymptoms lasting over 2 weeks (2 months). For context, patient reportsnon-smoker. For associated symptoms, patient reportsno fever,no chills,no heartburn,no nausea, andno post nasal drip. For modifying factors, (warm air stops cough).Dry cough, went to urgent care. Started albuterol [...] chest xray. States regular tap water increases cough.ROS as noted in the HPI Olga cisneros, [facility] 01/05/2016 11:22:25 OBGyn Episode No OBEpisode recorded.
--- OUTSIDE RECORDS SUMMARY | 2025-08-11 13:23 | XMS_ITS | Encounter Summary ---
Author Organization [facility] Address [address] [place] [address] Care Team Providers Care Frit Maker Name Role Phone Iain Banegas MD Primary Care Provider Leidy Chapa NP Primary Care Provider [phone] Encounter Details Date Type Department Care Team (Late st Contact Info) Description 08/07/2021 Telephone [place] [id number] [facility] [address] [place] [address] Nery Myles, KAUR Social History [...] on file Legal Sex Female 11:00 AM [employer] Gender Identity Female 01/24/2025 4:27 PM CDT [...] on filedocumented in this encounter Care Teams Frit Maker Relationship Specialty Start Date End Date Iain Banegas MD [address] [place] [address] PCP - General 09/13/19 09/08/23 Leidy Chapa NP [address] [place] [address] PCP - General Nurse Practitioner 09/09/23 documented as of this encounter
--- OUTSIDE RECORDS SUMMARY | 2025-08-11 13:23 | XMS_ITS | Clinical Summary ---
Author Organization [facility] Address [address] [place] [address] Phone Care Team Providers Care Disabilities Services Officer Name Role Phone Provider, Not On File [...] 1:00 PM CDT Height 154.9 cm (5' 1) 08/09/2021 1:00 PM CDT Body Mass Index 19.46 08/09/2021 1:00 PM CDT Plan of Treatment Health Maintenance Due Date Last Done Comments Hepatitis C Virus (HCV) Screening 1964 Pap Smear 1985 Cervical Cancer Screening (CCS) 1994 HPV/Cotest 1994 Cologuard 2009 Pneumococcal Immunization (5 0+ years) (1 of 1 - PCV) 2014 Zoster Immunization (1 of 2) 2014 Immunochemical Fecal Occult Blood 08/03/2022 08/03/2021, 07/27/2019 Colonoscopy 08/22/2024 08/22/2021, 12/15/2014 Colorectal Cancer Screening 08/22/2024 Influenza Immunization (#1) 2025 08/02/2020 SARS-COV-2 Immunization (3 - season) 2025 03/14/2021, 02/20/2021 Respiratory Syncytial Virus (RSV) Immunization (Adult) (1 - 1-dose 75+ series) 2039 DTaP/Tdap/Td Immunization Discontinued 1964 TdaP Immunization Completed 1964 Mammogram Discontinued 08/02/2019, 01/13/2017, 10/31/2015 Hepatitis B Immunization Aged Out No longer eligible based on patient's age to complete this topic Human Papillomavirus (HPV) Immunization Aged Out No longer eligible based [...] 01/13/2017, 07/22/2016, 01/05/2016, 01/05/2016, 10/31/2015, and 03/21/2015 [facility]. BREAST TISSUE:The tissue of both breasts [...] exam. Electronically signed by: Margarito solomon/cherelle:08/02/2019 10:00:47 Commercial Loan Specialist: Pamela Devries (Crystal), [facility] letter sent: Normal Exam Reading location: [place] [...] 01/13/2017, 07/22/2016, 01/05/2016, 01/05/2016, 10/31/2015, and [facility] BREAST TISSUE:The tissue of both breasts [...] exam. Electronically signed by: Margarito solomon/cherelle:08/02/2019 10:00:47 Commercial Loan Specialist: Pamela Devries (R), [facility] letter sent: Normal Exam Reading location: [place] BI-RADS: 1 Negative us Josseline Brown APRN, CNP IMG MAMMO ORDERABLE S Final Result * HM COLONOSCOPY (12/15/2014) us Olga Sylvester APRN, CNP PROCEDURE/MINOR S URGICAL ORDERABLES Final Result from Last 3 Months or Most Recently Relevant to Health Maintenance Insurance MEDICAID [employer] Care Teams Disabilities Services Officer Relationship Specialty Start Date End Date Provider, Not On File [place] PCP - General 08/22/21
== END 2025-08-11 13:18 | disposition home or self-care (01) ==
PROVIDERS: PCP Nurse Practitioner Family; Visit Provider Nurse Practitioner Adult Health
DX: M47.812 Spondylosis without myelopathy or radiculopathy, cervical region (principal); M47.816 Spondylosis without myelopathy or radiculopathy, lumbar region; M40.292 Other kyphosis, cervical region; M50.31 Other cervical disc degeneration, high cervical region; M50.321 Other cervical disc degeneration at C4-C5 level; M50.322 Other cervical disc degeneration at C5-C6 level; M50.323 Other cervical disc degeneration at C6-C7 level
CPT/HCPCS: 72052; 72114; 72220

== ENCOUNTER 2025-08-30 14:34 | Outpatient (CLI) | payer OTHER, SELFPAY ==
[2025-08-30 15:04] LABS: Hematocrit 44.6 % (37.0-47.0); Hemoglobin 14.4 g/dL (12.0-15.0); Immature Granulocyte Percent A 0.2 % (0-0.5); Lymphocytes Absolute Auto 1.32 K/mm3 (0.9-3.2); Mean Corpuscular HGB Conc 32.3 g/dl (32-36); Mean Corpuscular Hemoglobin 30.6 pg (26-34); Mean Corpuscular Volume 94.7 fl (80-100); Nucleated Red Blood Cells Absolute Auto 0.000 K/mm3 (0.0-0.012); Nucleated Red Blood Cells Perc 0.0 % (0.0-0.2); Platelet Count Result 210 k/mm3 (150-375); Red Blood Count 4.71 M/mm3 (4.2-5.4); White Blood Count 4.1 K/mm3 (4.5-10.0)
[2025-08-30 15:11] LABS: Add Urine Microscopic? NO; Appearance Urine Clear (Clear); Glucose Urine UA Negative (Negative); Leukocyte Esterase Ur Negative LEU/UL (Negative); Nitrate Urine Negative (Negative); Specific Grav Ur 1.019 (1.001-1.035)
[2025-08-30 15:22] LABS: Alanine Aminotransferase 23 U/L (6-35); Albumin Level 4.7 g/dL (3.5-5.1); Alkaline Phosphatase 84 U/L (38-126); Anion Gap 5 mmol/L (4-12); Aspartate Amino Transferase 37 U/L (14-36); Bilirubin,Total 0.5 mg/dL (0.2-1.3); Blood Urea Nitrogen 21 mg/dL (7-17); Calcium 9.1 mg/dL (8.4-10.2); Carbon Dioxide 30 mmol/L (22-30); Chloride 101 mmol/L (98-107); Estimated Glomerular Filt Rate > 60; Glucose 92 mg/dL (65-110); Potassium 4.3 mmol/L (3.4-5.0); Sodium 136 mmol/L (137-145); Total Protein 8.5 g/dL (6.3-8.2)
[2025-08-30 15:57] LABS: Thyroid Stimulating Hormone 1.400 uIU/mL (0.465-4.680)
[2025-08-30 16:42] LABS: Free T3 3.82 pg/mL (2.45-5.93); Free T4 Free Thyroxine 1.07 ng/dL (0.78-2.19)
--- OUTSIDE RECORDS SUMMARY | 2025-08-30 18:28 | XMS_ITS | Clinical Summary ---
Author Organization [facility] Address [address] [place] [address] Care Team Providers Care Fall Intern Name Role Phone Olga Sylvester APRN-GEOPOLITICS TEACHER Primary Care Provider Samuel Ayers DO Unavailable [phone] Source Comments [facility],non-owned Affiliates and Associated Physician Practices is amultiple site organization consisting of ambulatory clinics and hospital sitesin [place], [place] and [place]. This disclosure is being madepursuant to the Care Everywhere program and may not contain all information available regarding this patient. Last updated 18.[facility] Allergies Active Allergy Reactions [...] Comments Blood Pressure 118/74 12/12/2018 11:42 AM ASSOCIATE PROFESSOR OF ANTHROPOLOGY Pulse 64 12/12/2018 11:42 AM ASSOCIATE PROFESSOR OF ANTHROPOLOGY Temperature 36.8 C (98.2 F) 12/12/2018 11:42 AM ASSOCIATE PROFESSOR OF ANTHROPOLOGY Respiratory Rate 16 12/12/2018 11:42 AM ASSOCIATE PROFESSOR OF ANTHROPOLOGY Oxygen Saturation 97% 12/12/2018 11:42 AM ASSOCIATE PROFESSOR OF ANTHROPOLOGY Inhaled Oxygen Concentration - - Weight 49.9 kg (110 lb) 12/12/2018 11:42 AM ASSOCIATE PROFESSOR OF ANTHROPOLOGY Height 154.9 cm (5' 1) 12/12/2018 11:42 AM ASSOCIATE PROFESSOR OF ANTHROPOLOGY Body Mass Index 20.78 12/12/2018 11:42 AM ASSOCIATE PROFESSOR OF ANTHROPOLOGY Plan of Treatment Health Maintenance Due Date [...] patient's age to complete this topic Insurance [facility] Care Teams Fall Intern Relationship Specialty Start Date End Date Olga Sylvester APRN-GEOPOLITICS TEACHER [address] [place] [phone] PCP - General 07/23/21 Samuel Ayers DO [address] [place] [phone] Internal Medicine 07/23/21
--- OUTSIDE RECORDS SUMMARY | 2025-08-30 18:28 | XMS_ITS | Encounter Summary ---
Author Organization [facility] Healthcare Address [address] [place] [address] Care Team Providers Care Ladies' Locker Room Attendant Name Role Phone Iain Banegas MD Primary Care Provider [phone] Leidy Chapa NP Primary Care Provider [phone] Encounter Details Date Type Department Care Team (Late st Contact Info) Description 04/11/2022 Telephone [facility] [place] [facility] [address] [facility] Advanced Medicine [address] [place] [address] Anu Gong MD [address] [facility] [address] [place] [address] Social History Tobacco Use Types Packs/Day Years [...] on file Legal Sex Female 11:00 AM STUDY SPECIALIST Gender Identity Female 01/24/2025 4:27 PM CDT [...] on filedocumented in this encounter Care Teams Ladies' Locker Room Attendant Relationship Specialty Start Date End Date Iain Banegas MD [address] [address] PCP - General 09/13/19 09/08/23 Leidy Chapa NP [address] [address] PCP - General Nurse Practitioner 09/09/23 documented as of this encounter
--- OUTSIDE RECORDS SUMMARY | 2025-08-30 18:28 | XMS_ITS | Clinical Summary ---
Author Organization [facility] Address [address] [place] [address] Phone Care Team Providers Care District Commercial Superintendent Name Role Phone Provider, Not On File [...] 01/05/2016, 01/05/2016, 10/31/2015, and 03/21/2015 [facility]. BREAST TISSUE:The tissue of both breasts [...] exam. Electronically signed by: Margarito solomon/cherelle:08/02/2019 10:00:47 Life Assurance Representative: Pamela Devries (Crystal), [facility] letter sent: Normal Exam Reading location: [place] [...] 01/13/2017, 07/22/2016, 01/05/2016, 01/05/2016, 10/31/2015, and [facility] BREAST TISSUE:The tissue of both breasts [...] exam. Electronically signed by: Margarito solomon/cherelle:08/02/2019 10:00:47 Life Assurance Representative: Pamela Devries (R), [facility] letter sent: Normal Exam Reading location: [place] BI-RADS: 1 Negative us Josseline Brown APRN, CNP IMG MAMMO ORDERABLE S Final Result * HM COLONOSCOPY (12/15/2014) us Olga Sylvester APRN, CNP PROCEDURE/MINOR S URGICAL ORDERABLES Final Result from Last 3 Months or Most Recently Relevant to Health Maintenance Insurance MED[employer]ID [employer] Care Teams District Commercial Superintendent Relationship Specialty Start Date End Date Provider, Not On File [place] PCP - General 08/22/21
--- OUTSIDE RECORDS SUMMARY | 2025-08-30 18:28 | XMS_ITS | Encounter Summary ---
Author Organization [facility] Address [address] [facility] [place] [address] Phone Care Team Providers Care Legal Associate Name Role Phone Provider, Not On File Primary Care Provider Unav ailable Reason for Visit * Reason Comments Medication Refill Encounter Details Date Type Department Care Team ([facility] st Contact Info) Description 12/04/2022 Refill [facility] - Gastroenterology [facility] [address] [place] [address] Mirella Quintanilla Sarai, PAC [address] [place] [address] Medication Refill Social History Tobacco Use Types [...] appointment. Attempt to call patient. Left voicemail. ICATION SUPPORT DEVELOPER documented in this encounter Plan of Treatment Not on file documented as of this encounter Visit Diagnoses Not on filedocumented in this encounter Care Teams Legal Associate Relationship Specialty Start Date End Date Provider, Not On File [place] PCP - General 08/22/21 documented as of this encounter
--- OUTSIDE RECORDS SUMMARY | 2025-08-30 18:28 | XMS_ITS | Clinical Summary ---
Author Organization [facility] Address [address] [address] Phone Care Team Providers Care Grades 1 Thru 6 Visiting Teacher Name Role Phone Leidy Chapa NP Primary Care Provider [phone] Allergies Active Allergy Reactions Criticality Noted Date [...] 023 Assessment & Plan (09/17/2023 3:59 PM APPLICATION DESIGN ENGINEER): Impression: Patient complains of numbness to bilateral [...] Department Care Team Description 07/12/2025 Orders Only [facility] ([facility]) - [facility] Medicine Urology [address] 11th [place] [address] [place] [address] Avani Quinn, COMMODITY MERCHANT 06/07/2025 Orders Only [facility] Medicine Surgery [address] [place] [address] Avani Quinn, COMMODITY MERCHANT from Last 3 Months Immunizations Immunization Administration [...] on file Legal Sex Female 11:00 AM APPLICATION DESIGN ENGINEER Gender Identity Female 01/24/2025 4:27 PM CDT [...] HPV HR 16 Not Detected Not Detected [facility] Comment:Testing performed by : [facility], [address] [place]., [address] HPV HR 18 Not Detected Not Detected [facility] Comment:Testing performed by : [facility], [address] [place]., [address] HPV HR Non 16/18 Not Detected Not Detected [facility] Comment: Interpretive Data Nucleic acid amplification for [...] this test have been verified by the [facility] Molecular Infectious Disease laboratory. Correlate with separately reported cytology results, as applicable. Interpretive data last revised 23 Testing performed by: [facility], [address] [place]., [address] Endocervical 01/27/2025 3:08 PM CDT 01/28/2025 12:44 PM CDT [facility] - 01/29/2025 2:57 AM CDT Clinical history and diagnosis->Liquid-based PAP test with high risk HPV test- Z12.4 Number of vials->1 Testing type->Screening Last menstrual period (date if known)->N/A Menstrual status->Postmenopausal Contraceptive use->None Miranda Hutson DO LAB BODY FLUIDS AND STO OLS ORDERABLES Final Result [facility] [address] [place] [address] BJ from Last 3 Months or Most Recently Relevant to Health Maintenance Insurance [facility] Care Teams Grades 1 Thru 6 Visiting Teacher Relationship Specialty Start Date End Date Leidy Chapa NP [address] [place] [address] PCP - General Nurse Practitioner 09/09/23
--- OUTSIDE RECORDS SUMMARY | 2025-08-30 18:28 | XMS_ITS | Encounter Summary ---
Author Organization [facility] Healthcare Address [address] [place] [address] Care Team Providers Care Vacuum Caster Name Role Phone Iain Banegas MD Primary Care Provider [phone] Leidy Chapa NP Primary Care Provider Encounter Details Date Type Department Care Team (Late st Contact Info) Description 08/07/2021 Telephone [place] [id number] [facility] [address] [place] [address] Nery Myles, KAUR Social History [...] on file Legal Sex Female 11:00 AM BEEHIVE KILN CHARCOAL BURNER Gender Identity Female 01/24/2025 4:27 PM CDT [...] on filedocumented in this encounter Care Teams Vacuum Caster Relationship Specialty Start Date End Date Iain Banegas MD [address] [place] [address] PCP - General 09/13/19 09/08/23 Leidy Chapa NP [address] [place] [address] PCP - General Nurse Practitioner 09/09/23 documented as of this encounter
== END 2025-08-30 14:35 | disposition home or self-care (01) ==
LOC: ANHLAB 14:35
PROVIDERS: PCP Nurse Practitioner Family; Visit Provider Nurse Practitioner Family
DX: I95.1 Orthostatic hypotension (principal); F32.1 Major depressive disorder, single episode, moderate; I73.00 Raynaud's syndrome without gangrene; N32.81 Overactive bladder; M54.50 Low back pain, unspecified; G89.29 Other chronic pain; M54.16 Radiculopathy, lumbar region; G62.9 Polyneuropathy, unspecified; G25.81 Restless legs syndrome
CPT/HCPCS: 36415; 80053; 81003; 84439; 84443; 84481; 85025; 86376; 87086

== ENCOUNTER 2025-09-02 13:42 | Outpatient (CLI) | payer OTHER, SELFPAY ==
--- NOTE | ~2025-09-02 | MR_ITS ---
EXAMINATION: MR cervical spine wo con DATE: 09/02/2025 15:56 INDICATION: Radiculopathy, cervical region. TECHNIQUE: Magnetic resonance imaging (MRI) of the cervical spine was performed without intravenous contrast. COMPARISON: Cervical spine MRI 07/09/2021 FINDINGS: There is kyphosis of cervical spine. There is 2 mm anterolisthesis of C7 on T1. There is 4 degrees dextrocurvature of cervical spine. Vertebral body heights are normal. There is mildly decreased disc height at C3-C4 and C4-C5 and moderately decreased disc height at C5-C6 and C6-C7. The spinal cord signal intensity is normal. The following disc levels are specifically discussed: C2-C3: The disc does not extend beyond the endplate margin. There is no uncovertebral joint osteoarthritis. There is severe bilateral facet joint osteoarthritis. There is no neural foraminal stenosis. There is no central canal stenosis. C3-C4: The disc is bulging. There is moderate bilateral uncovertebral joint osteoarthritis. There is severe bilateral facet joint osteoarthritis. There is mild right and moderate left neural foraminal stenosis. There is mild central canal stenosis. C4-C5: The disc is bulging. There is severe right and moderate left uncovertebral joint osteoarthritis. There is mild right and moderate left facet joint osteoarthritis. There is mild bilateral neural foraminal stenosis. There is mild central canal stenosis. C5-C6: The disc is bulging. There is severe bilateral uncovertebral joint osteoarthritis. There is mild bilateral facet joint osteoarthritis. There is mild bilateral neural foraminal stenosis. There is mild central canal stenosis. C6-C7: The disc is bulging. There is severe bilateral uncovertebral joint osteoarthritis. There is mild bilateral facet joint osteoarthritis. There is mild bilateral neural foraminal stenosis. There is mild central canal stenosis. C7-T1: There is a central protrusion. There is no uncovertebral joint osteoarthritis. There is moderate right and severe left facet joint osteoarthritis. There is mild bilateral neural foraminal stenosis. There is no central canal stenosis. IMPRESSION: 1. Moderate cervical spondylosis, mildly worsened from 07/09/2021. Reviewed, dictated and finalized at location E.
--- NOTE | ~2025-09-02 | MR_ITS ---
EXAMINATION: MR lumbar spine wo con DATE: 09/02/2025 15:55 INDICATION: Radiculopathy, lumbar region. TECHNIQUE: Magnetic resonance imaging (MRI) of the lumbar spine was performed without intravenous contrast. Sequences included sagittal T2-weighted FSE, sagittal T2-weighted FS FSE, sagittal T1-weighted FSE, and axial T2-weighted FSE. COMPARISON: Lumbar spine MRI 07/09/2021 FINDINGS: There is 11 degrees levoscoliosis of thoracolumbar spine. There is 3 mm anterolisthesis of L4 on L5 and 3 mm retrolisthesis of L5 on S1. There is a compression fracture of T12 with less than 1/5 loss of height with low signal fracture line and edema-like marrow signal intensity involving the inferior endplate. There is a compression fracture of L5 with less than 1/5 loss of height with low signal fracture line and edema-like marrow signal intensity involving the inferior endplate. There is mild chronic anterior wedging of L1-L3 vertebral bodies. There is mildly decreased disc height at L2-L3 and L3-L4, moderately decreased disc height at L4-L5, and severely decreased disc height at L5-S1. The distal spinal cord signal intensity is normal. The conus medullaris is at L1. The following disc levels are specifically discussed: L1-L2: There is a central protrusion. There is severe bilateral facet joint osteoarthritis. There is no neural foraminal stenosis. There is mild central canal stenosis. L2-L3: The disc is bulging. There is severe bilateral facet joint osteoarthritis. There is mild bilateral neural foraminal stenosis. There is mild central canal stenosis. L3-L4: The disc is bulging. There is severe bilateral facet joint osteoarthritis. There is mild bilateral neural foraminal stenosis. There is mild central canal stenosis. L4-L5: The disc is bulging and has an annular fissure. There is severe bilateral facet joint osteoarthritis. There is mild right and moderate left neural foraminal stenosis. There is mild central canal stenosis. L5-S1: The disc is bulging and has an annular fissure. There is severe bilateral facet joint osteoarthritis. There is moderate bilateral neural foraminal stenosis. There is mild central canal stenosis. IMPRESSION: 1. Mild compression fractures of T12 and L5. 2. Severe lumbar spondylosis, worsened from 07/09/21. Reviewed, dictated and finalized at location E.
--- OUTSIDE RECORDS SUMMARY | 2025-09-02 13:49 | XMS_ITS | Encounter Summary ---
Author Organization [facility] Healthcare Address [address] [place] [address] Care Team Providers Care Lean Manufacturing Leader Name Role Phone Iain Banegas MD Primary Care Provider [phone] Leidy Chapa NP Primary Care Provider [phone] Encounter Details Date Type Department Care Team (Late st Contact Info) Description 08/07/2021 Telephone [place] [id number] [facility] [address] [place] [address] Nery Myles, KAUR Social History [...] on file Legal Sex Female 11:00 AM MUD JACK NOZZLEMAN Gender Identity Female 01/24/2025 4:27 PM CDT [...] on filedocumented in this encounter Care Teams Lean Manufacturing Leader Relationship Specialty Start Date End Date Iain Banegas MD [address] [place] [address] PCP - General 09/13/19 09/08/23 Leidy Chapa NP [address] [place] [address] PCP - General Nurse Practitioner 09/09/23 documented as of this encounter
--- OUTSIDE RECORDS SUMMARY | 2025-09-02 13:49 | XMS_ITS | Clinical Summary ---
Author Organization [facility] Address [address] [place] [address] Phone Care Team Providers Care Audio Visual Facilities Engineer Name Role Phone Provider, Not On File [...] 01/13/2017, 07/22/2016, 01/05/2016, 01/05/2016, 10/31/2015, and 03/21/2015 [facility]. BREAST TISSUE:The tissue of both breasts [...] exam. Electronically signed by: Margarito solomon/cherelle:08/02/2019 10:00:47 Group President: Pamela eDvries (Crystal), [facility] letter sent: Normal Exam Reading location: [...] 01/13/2017, 07/22/2016, 01/05/2016, 01/05/2016, 10/31/2015, and [facility]. BREAST TISSUE:The tissue of both breasts [...] exam. Electronically signed by: Margarito solomon/cherelle:08/02/2019 10:00:47 Group President: Pamela Devries (R), [facility] letter sent: Normal Exam Reading location: [place] BI-RADS: 1 Negative us Josseline Brown APRN, CNP IMG MAMMO ORDERABLE S Final Result * HM COLONOSCOPY (12/15/2014) us Olga Sylvester APRN, CNP PROCEDURE/MINOR S URGICAL ORDERABLES Final Result from Last 3 Months or Most Recently Relevant to Health Maintenance Insurance [employer] Care Teams Audio Visual Facilities Engineer Relationship Specialty Start Date End Date Provider, Not On File [place] PCP - General 08/22/21
--- OUTSIDE RECORDS SUMMARY | 2025-09-02 13:49 | XMS_ITS | Encounter Summary ---
Author Organization [facility] Healthcare Address [address] [place] [address] Care Team Providers Care Nib Assembler Name Role Phone Iain Banegas MD Primary Care Provider [phone] Leidy Chapa NP Primary Care Provider Encounter Details Date Type Department Care Team (Late st Contact Info) Description 04/11/2022 Telephone [facility] [place] [facility] [address] [facility] Advanced Medicine [address] [place] [address] Anu Gong MD [address] [facility] [address] [place] [address] Social History Tobacco Use Types Packs/Day Years [...] on file Legal Sex Female 11:00 AM CARD LACER Gender Identity Female 01/24/2025 4:27 PM CDT [...] on filedocumented in this encounter Care Teams Nib Assembler Relationship Specialty Start Date End Date Iain Banegas MD [address] [address] PCP - General 09/13/19 09/08/23 Leidy Chapa NP [address] [address] PCP - General Nurse Practitioner 09/09/23 documented as of this encounter
--- OUTSIDE RECORDS SUMMARY | 2025-09-02 13:49 | XMS_ITS | Clinical Summary ---
Author Organization [facility] Address [address] [address] Phone Care Team Providers Care Plateman Name Role Phone Leidy Chapa NP Primary Care Provider [phone] Allergies Active Allergy Reactions Criticality Noted Date [...] 023 Assessment & Plan (09/17/2023 3:59 PM STRAWBERRY GROWER): Impression: Patient complains of numbness to bilateral [...] Department Care Team Description 07/12/2025 Orders Only [facility] - [facility] Medicine Urology [address] [facility] 11th [place] [address] [place] [address] Avani Quinn, MEDICAL CARE EVALUATION SPECIALIST 06/07/2025 Orders Only [facility] Medicine Surgery [address] [place] [address] Avani Quinn, MEDICAL CARE EVALUATION SPECIALIST from Last 3 Months Immunizations Immunization Administration [...] on file Legal Sex Female 11:00 AM STRAWBERRY GROWER Gender Identity Female 01/24/2025 4:27 PM CDT [...] HPV HR 16 Not Detected Not Detected [facility] Comment:Testing performed by : [facility], [address] [place]., [address] HPV HR 18 Not Detected Not Detected [facility] Comment:Testing performed by : [facility], [address] [place]., [address] HPV HR Non 16/18 Not Detected Not Detected [facility] Comment: Interpretive Data Nucleic acid amplification for [...] last revised 23 Testing performed by: [facility], [address] [place]., [address] Endocervical 01/27/2025 3:08 PM CDT 01/28/2025 12:44 PM CDT [facility] - 01/29/2025 2:57 AM CDT Clinical history and diagnosis->Liquid-based PAP test with high risk HPV test- Z12.4 Number of vials->1 Testing type->Screening Last menstrual period (date if known)->N/A Menstrual status->Postmenopausal Contraceptive use->None Miranda Hutson DO LAB BODY FLUIDS AND STO OLS ORDERABLES Final Result [facility] [address] Department [place] [address] BJ from Last 3 Months or Most Recently Relevant to Health Maintenance Insurance [facility] Care Teams Plateman Relationship Specialty Start Date End Date Leidy Chapa NP [address] [place] [address] PCP - General Nurse Practitioner 09/09/23
--- OUTSIDE RECORDS SUMMARY | 2025-09-02 13:49 | XMS_ITS | Clinical Summary ---
Author Organization [facility] Address [address] [place] [address] Care Team Providers Care Sewing Machine Operator Semiautomatic Name Role Phone Olga Sylvester APRN-NET PROGRAMMER ANALYST Primary Care Provider Samuel Ayers DO Unavailable [phone] Source Comments [facility],non-owned Affiliates and Associated Physician Practices is amultiple site organization consisting of ambulatory clinics and hospital sitesin [place], [place], [place] and [place]. This disclosure is being madepursuant to the Care Everywhere program and may not contain all information available regarding this patient. Last updated 18.[facility] Allergies Active Allergy Reactions [...] Comments Blood Pressure 118/74 12/12/2018 11:42 AM RN TEACHER Pulse 64 12/12/2018 11:42 AM RN TEACHER Temperature 36.8 C (98.2 F) 12/12/2018 11:42 AM RN TEACHER Respiratory Rate 16 12/12/2018 11:42 AM RN TEACHER Oxygen Saturation 97% 12/12/2018 11:42 AM RN TEACHER Inhaled Oxygen Concentration - - Weight 49.9 kg (110 lb) 12/12/2018 11:42 AM RN TEACHER Height 154.9 cm (5' 1) 12/12/2018 11:42 AM RN TEACHER Body Mass Index 20.78 12/12/2018 11:42 AM RN TEACHER Plan of Treatment Health Maintenance Due Date [...] patient's age to complete this topic Insurance [facility] Care Teams Sewing Machine Operator Semiautomatic Relationship Specialty Start Date End Date Olga Sylvester APRN-NET PROGRAMMER ANALYST [address] [place] [phone] PCP - General 07/23/21 Samuel Ayers DO [address] [place] [phone] Internal Medicine 07/23/21
--- OUTSIDE RECORDS SUMMARY | 2025-09-02 13:49 | XMS_ITS | Encounter Summary ---
Author Organization [facility] Address [address] [facility] [place] [address] Phone Care Team Providers Care Sketch Maker Name Role Phone Provider, Not On File Primary Care Provider Unav ailable Reason for Visit * Reason Comments Medication Refill Encounter Details Date Type Department Care Team ([facility] st Contact Info) Description 12/04/2022 Refill [facility] - [facility]ology [facility] [address] [place] [address] Mirella Quintanilla Sarai, PAC [address] [place] [address] Medication Refill Social History Tobacco Use Types [...] appointment. Attempt to call patient. Left voicemail. CE CRIME SCENE TECHNICIAN documented in this encounter Plan of Treatment Not on file documented as of this encounter Visit Diagnoses Not on filedocumented in this encounter Care Teams Sketch Maker Relationship Specialty Start Date End Date Provider, Not On File [place] PCP - General 08/22/21 documented as of this encounter
== END 2025-09-02 13:43 | disposition home or self-care (01) ==
PROVIDERS: PCP Nurse Practitioner Family; Visit Provider Nurse Practitioner Adult Health
DX: S22.080A Wedge compression fracture of T11-T12 vertebra, initial encounter for closed fracture (principal); S32.050A Wedge compression fracture of fifth lumbar vertebra, initial encounter for closed fracture; X58.XXXA Exposure to other specified factors, initial encounter; M47.816 Spondylosis without myelopathy or radiculopathy, lumbar region; M47.812 Spondylosis without myelopathy or radiculopathy, cervical region
CPT/HCPCS: 72141; 72148